=== PATIENT | female | born 1995 | race Caucasian/White ===

== ENCOUNTER 2017-03-16 20:29 | Emergency (ER) | payer OTHER ==
[~2017-03-16] VITALS: Ht 182.9 cm; Wt 150.0 kg
[2017-03-16 20:30] VITALS: BP 105/66
[2017-03-16] MEDS ORDERED: NAPR500T PO (21:17)
--- NOTE | 2017-03-16 22:10 | REP ---
Clinical: Trauma. Technique: AP, lateral, bilateral oblique views of the left ankle. Findings: Evidence for old trauma with prior fixation involving the medial malleolus. No acute fracture or dislocation. No significant soft tissue swelling. Ankle mortise appears intact. Impression: Evidence for prior ORIF involving the medial malleolus. No acute fracture dislocation. Signed by Mina Joiner MD 03/16/2017 10:00 P
== END 2017-03-16 21:54 | disposition home or self-care (01) ==
LOC: M ED 20:29
DX: S93.412A Sprain of calcaneofibular ligament of left ankle, initial encounter (principal); W01.0XXA Fall on same level from slipping, tripping and stumbling without subsequent striking against object, initial encounter; Y92.89 Other specified places as the place of occurrence of the external cause; Y93.89 Activity, other specified; Y99.1 Military activity

== ENCOUNTER 2017-04-29 11:15 | Emergency (ER) | payer OTHER ==
[~2017-04-29] VITALS: Ht 182.9 cm; Wt 68.2 kg
[~2017-04-29 11:15] MED LIST: NAPR500T PO
--- NOTE | 2017-04-29 13:14 | REP ---
Chest x-ray: Two views. History: Cough . Comparison study: No comparison . Findings: The lungs are well inflated and free of infiltrate. The pleural angles are sharp. The heart size is normal. Pulmonary vasculature is not increased. No significant bony abnormality is seen. Impression: Negative chest x-ray. Signed by Romel Schultz MD 04/29/2017 01:06 P
[2017-04-29] MEDS ORDERED: AUGM875T28 PO (13:24)
[2017-04-29] MEDS ORDERED: AUGMENTIN 875 MG TAB PO ONE (13:30)
[2017-04-29 13:41] VITALS: BP 128/69
== END 2017-04-29 13:42 | disposition home or self-care (01) ==
LOC: M ED 11:15
DX: J06.9 Acute upper respiratory infection, unspecified (principal); H66.92 Otitis media, unspecified, left ear; R07.89 Other chest pain; R05 Cough; F17.200 Nicotine dependence, unspecified, uncomplicated

== ENCOUNTER 2017-05-15 11:28 | Emergency (ER) | payer OTHER ==
[~2017-05-15] VITALS: Ht 182.9 cm; Wt 77.0 kg
[~2017-05-15 11:28] MED LIST changes: +AUGM875T28 PO
[2017-05-15 13:16] LABS: MEAN CORPUSCULAR HEMOGLOBIN 28.4 pg (27.0-33.0); MEAN CORPUSCULAR HGB CONC 33.6 g/dl (32.0-36.5); MEAN CORPUSCULAR VOLUME 84.5 fl (80.0-96.0); PLATELET COUNT, AUTOMATED 219 10^3/uL (150-450); RED CELL DISTRIBUTION WIDTH 12.6 % (11.5-14.5); WHITE BLOOD COUNT 5.6 10^3/uL (4.0-10.0)
[2017-05-15] MEDS ORDERED: IBUP-1022 PO (13:52)
[2017-05-15 14:10] VITALS: BP 119/62
== END 2017-05-15 14:12 | disposition home or self-care (01) ==
LOC: M ED 11:28
DX: N92.6 Irregular menstruation, unspecified (principal); F17.200 Nicotine dependence, unspecified, uncomplicated; Z91.030 Bee allergy status; Z91.013 Allergy to seafood

== ENCOUNTER 2017-05-31 22:36 | Emergency (ER) | payer OTHER ==
[~2017-05-31] VITALS: Ht 185.4 cm; Wt 63.6 kg
[~2017-05-31 22:36] MED LIST changes: +IBUP-1022 PO
[2017-06-01 00:35] LABS: BASO % 0.4 % (0.0-1.0); EOS # 0.2 10^3/uL (0.0-0.50); IMMATURE GRANULOCYTE % 0.3 % (0-0); LYMPH # 2.2 10^3/uL (1.5-6.5); LYMPH % 29.7 % (24.0-44.0); MEAN CORPUSCULAR HEMOGLOBIN 28.5 pg (27.0-33.0); MEAN CORPUSCULAR VOLUME 83.7 fl (80.0-96.0); MONO # 0.5 10^3/uL (0.0-0.8); MONO % 6.7 % (0.0-5.0); NEUTROPHILS # 4.5 10^3/uL (1.8-7.7); NEUTROPHILS % 60.9 % (36.0-66.0); PLATELET COUNT, AUTOMATED 237 10^3/uL (150-450); WHITE BLOOD COUNT 7.4 10^3/uL (4.0-10.0)
[2017-06-01 00:53] LABS: CONTROL LINE HCG INT CTR LINE PRESENT
[2017-06-01 01:19] LABS: ANION GAP 4 MEQ/L (8-16); BLOOD UREA NITROGEN 15 MG/DL (7-18); CALCIUM LEVEL 8.9 MG/DL (8.5-10.1); CARBON DIOXIDE LEVEL 29 MEQ/L (21-32); CHLORIDE LEVEL 105 MEQ/L (98-107); CREATININE FOR GFR 0.54 MG/DL (0.55-1.02); GLUCOSE, FASTING 86 MG/DL (70-105); POTASSIUM SERUM 3.9 MEQ/L (3.5-5.1); SODIUM LEVEL 138 MEQ/L (136-145)
[2017-06-01] MEDS ORDERED: METOCLOPRAMIDE INJ 10MG/2ML VIAL (J2765) IV ONE (01:30)
[2017-06-01] MEDS ORDERED: NS 1,000 ML IV ONE (01:30)
[2017-06-01] MEDS ORDERED: diphenhydrAMINE INJ 50MG/ML VIAL (J1200) IV ONE (01:30)
[2017-06-01] MEDS ORDERED: KETOROLAC 30 MG/ML VIAL (J1885) IV ONE (01:30)
--- NOTE | 2017-06-01 01:30 | REPUSA ---
CLINICAL HISTORY: Syncope. TECHNIQUE: Multiple axial brain CT scan sections were obtained from base to vertex without contrast a dministration. COMMENTS: The study shows normal configuration of sella turcica. There are no intra or extra-axial collections. There is no mass effect or midline shift. There is no evidence of hematoma formation. No hydrocephal us is present. No abnormal calcifications are noted. No significant abnormalities are seen either in the posterior fossa or supratentorial compartment. The sinuses and mastoid air cells are patent. IMPRESSION: No evidence of acute intracranial pathology. Thank you for your kind referral of this patient.
[2017-06-01 03:26] VITALS: BP 114/57
--- NOTE | 2017-06-01 14:17 | ECGEPIP ---
Stationary ECG Study [facility] - ED Test Date: 2017-06-01 Pat Name: BRITTNY KING Department: Room: - Gender: F Associate Director Qa: rn : 1995 Requested By: MUSTAPHA Daniel Order Number: [id number] Reading MD: Cathy Pizarro Measurements Intervals [place] Rate: 70 P: 44 NH: 168 QRS: 48 QRSD: 102 T: 45 QT: 405 QTc: 439 Interpretive Statements SINUS RHYTHM NO PRIOR FOR COMPARISON Electronically Signed On 06-01-2017 14:16:48 EST by Cathy Pizarro
== END 2017-06-01 03:29 | disposition home or self-care (01) ==
LOC: M ED 22:36
DX: G43.809 Other migraine, not intractable, without status migrainosus (principal); R55 Syncope and collapse; Z91.030 Bee allergy status; Z91.013 Allergy to seafood
CPT/HCPCS: 70450; 80048; 84443; 84703; 85025; 93005; 93041; 94760; 96361; 96374; 96375; 99284; G0480; J1200; J1885; J2765

== ENCOUNTER → 2017-06-29 | Outpatient (REF) | payer OTHER ==
[~2017-06-29] MED LIST changes: +CITRSOL8 PO
== END ==
LOC: M SFHCLERA 19:53
PROVIDERS: ATTEND Nurse Practitioner Family
DX: J02.9 Acute pharyngitis, unspecified (principal)

== ENCOUNTER 2017-07-01 11:40 | Emergency (ER) | payer OTHER ==
[~2017-07-01] VITALS: Ht 182.9 cm; Wt 73.6 kg
[~2017-07-01 11:40] MED LIST changes: -CITRSOL8 PO
[2017-07-01 11:41] VITALS: BP 115/63
[2017-07-01 13:00] LABS: CONTROL LINE UCG INT CTR LINE PRESENT
[2017-07-01 13:06] LABS: SPECIFIC GRAVITY UR AUTO RFX 1.019 (1.002-1.035); SQUAM EPITHELIAL CELL UR AURFX 3 /HPF (0-6)
[2017-07-01] MEDS ORDERED: CITRSOL8 PO (14:24)
--- NOTE | 2017-07-01 15:50 | REP ---
ABDOMINAL SERIES: Supine and erect views of the abdomen demonstrate no free air and no compelling evidence for obstruction. No dilated small bowel loops are seen and there is no abdominal calcifications seen in the abdomen or pelvis. The visualized osseous structures appear intact. An accompanying view of the chest demonstrates no acute infiltrate. Heart is normal in size and the mediastinal silhouette is unremarkable. IMPRESSION: Negative abdominal series. Signed by Paul Trinidad MD 07/01/2017 05:02 P
== END 2017-07-01 14:45 | disposition home or self-care (01) ==
LOC: M ED 11:40
DX: K59.00 Constipation, unspecified (principal); F41.9 Anxiety disorder, unspecified; Z91.030 Bee allergy status; Z91.013 Allergy to seafood

== ENCOUNTER 2017-11-09 19:02 | Emergency (ER) | payer OTHER ==
[2017-11-09 20:32] LABS: BASO % 0.3 % (0.0-1.0); EOS # 0.2 10^3/uL (0.0-0.50); EOS % 1.8 % (0.0-3.0); HEMATOCRIT 36.2 % (36.0-47.0); HEMOGLOBIN 12.3 g/dl (12.0-15.5); IMMATURE GRANULOCYTE % 0.3 % (0-3.0); LYMPH # 2.9 10^3/uL (1.5-6.5); LYMPH % 30.3 % (24.0-44.0); MEAN CORPUSCULAR HEMOGLOBIN 28.4 pg (27.0-33.0); MEAN CORPUSCULAR VOLUME 83.6 fl (80.0-96.0); MONO # 0.7 10^3/uL (0.0-0.8); MONO % 7.1 % (0.0-5.0); NEUTROPHILS # 5.7 10^3/uL (1.8-7.7); NEUTROPHILS % 60.2 % (36.0-66.0); PLATELET COUNT, AUTOMATED 229 10^3/uL (150-450); RED BLOOD COUNT 4.33 10^6/uL (4.00-5.40); RED CELL DISTRIBUTION WIDTH 12.8 % (11.5-14.5); WHITE BLOOD COUNT 9.5 10^3/uL (4.0-10.0)
[2017-11-09 20:40] LABS: AMORPHOUS SEDIMENT RFX SMALL (NEGATIVE); KETONE, URINE AUTO RFX NEGATIVE (NEGATIVE); LEUKOCYTE ESTERASE UR AUTO RFX 2+ (NEGATIVE); NITRITE, URINE AUTO RFX NEGATIVE (NEGATIVE); RBC, URINE AUTO RFX 2 /HPF (0-3); SPECIFIC GRAVITY UR AUTO RFX 1.008 (1.002-1.035); SQUAM EPITHELIAL CELL UR AURFX 1 /HPF (0-6); WBC, URINE AUTO RFX 4 /HPF (0-3)
[2017-11-09 21:17] LABS: ANION GAP 6 MEQ/L (8-16); BLOOD UREA NITROGEN 10 MG/DL (7-18); CALCIUM LEVEL 8.7 MG/DL (8.5-10.1); CARBON DIOXIDE LEVEL 27 MEQ/L (21-32); CHLORIDE LEVEL 107 MEQ/L (98-107); CREATININE FOR GFR 0.57 MG/DL (0.55-1.30); GLUCOSE, FASTING 84 MG/DL (70-100); HCG, SERUM QUANTITATIVE 44603 MIU/ML; POTASSIUM SERUM 4.3 MEQ/L (3.5-5.1); SODIUM LEVEL 140 MEQ/L (136-145)
[2017-11-09 23:03] LABS: CHLAMYDIA DNA AMPLIFICATION NEGATIVE (NEGATIVE); GC DNA AMPLIFICATION NEGATIVE (NEGATIVE)
== END 2017-11-09 22:05 | disposition home or self-care (01) ==
LOC: M ED 19:02
DX: O20.8 Other hemorrhage in early pregnancy (principal); Z3A.01 Less than 8 weeks gestation of pregnancy; Z79.899 Other long term (current) drug therapy; Z91.013 Allergy to seafood; Z91.030 Bee allergy status
CPT/HCPCS: 76801

== ENCOUNTER 2017-12-13 11:05 | Emergency (ER) | payer OTHER ==
[2017-12-13] MEDS: ONDANSETRON 4MG/2ML VIAL (J2405) IV (16:44)
[2017-12-13] MEDS: NS 1,000 ML IV (16:44)
[2017-12-13 16:54] LABS: ANION GAP 6 MEQ/L (8-16); BLOOD UREA NITROGEN 8 MG/DL (7-18); CARBON DIOXIDE LEVEL 27 MEQ/L (21-32); CHLORIDE LEVEL 106 MEQ/L (98-107); CREATININE FOR GFR 0.52 MG/DL (0.55-1.30); GLUCOSE, FASTING 74 MG/DL (70-100); HCG, SERUM QUANTITATIVE 45768 MIU/ML; POTASSIUM SERUM 3.9 MEQ/L (3.5-5.1); SODIUM LEVEL 139 MEQ/L (136-145)
[2017-12-13 18:18] LABS: KETONE, URINE AUTO RFX 2+ mg/dL (NEGATIVE); MUCUS, URINE RFX MODERATE (NEGATIVE); NITRITE, URINE AUTO RFX NEGATIVE (NEGATIVE); RBC, URINE AUTO RFX 1 /HPF (0-3); SPECIFIC GRAVITY UR AUTO RFX 1.019 (1.002-1.035); SQUAM EPITHELIAL CELL UR AURFX 4 /HPF (0-6)
[2017-12-13 18:20] LABS: LEUKOCYTE ESTERASE UR AUTO RFX 2+ (NEGATIVE); WBC, URINE AUTO RFX 28 /HPF (0-3)
== END 2017-12-13 18:44 | disposition home or self-care (01) ==
LOC: M ED 11:05
DX: O99.511 Diseases of the respiratory system complicating pregnancy, first trimester (principal); J20.8 Acute bronchitis due to other specified organisms; O23.01 Infections of kidney in pregnancy, first trimester; O99.351 Diseases of the nervous system complicating pregnancy, first trimester; G44.209 Tension-type headache, unspecified, not intractable; Z3A.12 12 weeks gestation of pregnancy; Z91.030 Bee allergy status; Z91.013 Allergy to seafood
CPT/HCPCS: J2405

== ENCOUNTER 2018-03-07 13:10 | Outpatient (CLI) | payer OTHER ==
[2018-03-07 16:31] LABS: APPEARANCE, URINE CLEAR (CLEAR); BACTERIA, URINE AUTO NEGATIVE (NEGATIVE); BILIRUBIN, URINE AUTO NEGATIVE (NEGATIVE); BLOOD, URINE BLOOD NEGATIVE (NEGATIVE); COLOR, URINE STRAW (YELLOW); GLUCOSE, URINE (UA) AUTO NEGATIVE (NEGATIVE); KETONE, URINE AUTO NEGATIVE (NEGATIVE); LEUKOCYTE ESTERASE, URINE AUTO NEGATIVE (NEGATIVE); NITRITE, URINE AUTO NEGATIVE (NEGATIVE); PROTEIN, URINE AUTO NEGATIVE (NEGATIVE); RBC, URINE AUTO 0 /HPF (0-3); SPECIFIC GRAVITY URINE AUTO 1.004 (1.002-1.035); SQUAMOUS EPITHELIAL CELL UR AU 0 /HPF (0-6); UROBILINOGEN, URINE AUTO 0.2 mg/dL (0.0-2.0); WBC, URINE AUTO 1 /HPF (0-3)
== END 2018-03-07 16:58 | disposition home or self-care (01) ==
LOC: M LDO 13:10
DX: O26.892 Other specified pregnancy related conditions, second trimester (principal); Z3A.25 25 weeks gestation of pregnancy; N89.8 Other specified noninflammatory disorders of vagina
CPT/HCPCS: G0463

== ENCOUNTER 2018-03-27 10:23 | Outpatient (CLI) | payer OTHER ==
[2018-03-27] MEDS ORDERED: LR 1,000 ML IV (12:00)
== END 2018-03-27 13:30 | disposition home or self-care (01) ==
LOC: M LDO 10:23
DX: E86.0 Dehydration (principal); O99.89 Other specified diseases and conditions complicating pregnancy, childbirth and the puerperium; R19.7 Diarrhea, unspecified; R05 Cough; R09.89 Other specified symptoms and signs involving the circulatory and respiratory systems; Z3A.27 27 weeks gestation of pregnancy
CPT/HCPCS: 59025

== ENCOUNTER 2018-05-10 17:38 | Outpatient (CLI) | payer OTHER | END 2018-05-10 18:57 | disposition home or self-care (01) | LOC: M LDO 17:38 | DX: O47.9 False labor, unspecified (principal); Z3A.00 Weeks of gestation of pregnancy not specified | CPT/HCPCS: 59025 ==

== ENCOUNTER 2018-10-09 14:39 | Emergency (ER) | payer OTHER ==
[~2018-10-09] VITALS: Ht 185.4 cm; Wt 79.1 kg
[~2018-10-09 14:39] MED LIST changes: +CITRSOL8 PO; +KEFL500C17 PO; +NAPR-837 PO; -NAPR500T PO; +PRENTAB77 PO; +RANI75TA15 PO; +UNIS25TA3 PO; +vitamin c
[2018-10-09] MEDS ORDERED: MIRE1IUD (14:47)
[2018-10-09] MEDS ORDERED: NAPR-885 (14:47)
[2018-10-09] MEDS ORDERED: ALIG4CAP (14:47)
[2018-10-09] MEDS ORDERED: AMIT8CAP4 (14:47)
[2018-10-09] MEDS ORDERED: PRAZ1CAP (14:47)
[2018-10-09] MEDS ORDERED: NS 1,000 ML IV ONE ×2 (15:30→17:45)
[2018-10-09 15:35] LABS: BASO % 0.1 % (0.0-1.0); EOS # 0.2 10^3/uL (0.0-0.50); EOS % 2.9 % (0.0-3.0); HEMATOCRIT 40.7 % (36.0-47.0); HEMOGLOBIN 13.5 g/dl (12.0-15.5); LYMPH # 2.4 10^3/uL (1.5-6.5); LYMPH % 32.4 % (24.0-44.0); MEAN CORPUSCULAR HEMOGLOBIN 28.1 pg (27.0-33.0); MEAN CORPUSCULAR HGB CONC 33.2 g/dl (32.0-36.5); MEAN CORPUSCULAR VOLUME 84.6 fl (80.0-96.0); MONO # 0.5 10^3/uL (0.0-0.8); NEUTROPHILS # 4.2 10^3/uL (1.8-7.7); NEUTROPHILS % 57.2 % (36.0-66.0); PLATELET COUNT, AUTOMATED 248 10^3/uL (150-450); RED BLOOD COUNT 4.81 10^6/uL (4.00-5.40); WHITE BLOOD COUNT 7.3 10^3/uL (4.0-10.0)
[2018-10-09 15:51] LABS: HCG, SERUM QUALITATIVE NEGATIVE (NEGATIVE)
[2018-10-09] MEDS ORDERED: ONDANSETRON 4MG/2ML VIAL (J2405) IV ONE (16:00)
--- NOTE | 2018-10-09 16:03 | REP ---
Clinical: Syncope/near-syncopal episode . Comparison: 04/29/2017 . Findings: The mediastinum and cardiac silhouette are stable and within normal limits for portable technique. The lung cortez are clear without acute consolidation, effusion, or pneumothorax. Skeletal structures are intact. Impression: No acute cardiopulmonary process appreciated. Electronically Signed by Mina Joiner MD 10/09/2018 03:53 P
[2018-10-09 16:09] LABS: INFLUENZA A AMPLIFICATION NEGATIVE (NEGATIVE); INFLUENZA B AMPLIFICATION NEGATIVE (NEGATIVE)
[2018-10-09 17:05] LABS: BLOOD UREA NITROGEN 21 MG/DL (7-18); CALCIUM LEVEL 8.9 MG/DL (8.5-10.1); CARBON DIOXIDE LEVEL 26 MEQ/L (21-32); CHLORIDE LEVEL 107 MEQ/L (98-107); CREATININE FOR GFR 0.56 MG/DL (0.55-1.30); GLUCOSE, FASTING 81 MG/DL (70-100); SODIUM LEVEL 139 MEQ/L (136-145)
[2018-10-09] MEDS ORDERED: ONDA4TAB6 PO (18:24)
[2018-10-09 19:12] VITALS: BP 110/64
--- NOTE | 2018-10-09 21:18 | ECGEPIP ---
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
== END 2018-10-09 19:12 | disposition home or self-care (01) ==
LOC: M ED 14:39
DX: K52.9 Noninfective gastroenteritis and colitis, unspecified (principal); R55 Syncope and collapse; F41.9 Anxiety disorder, unspecified; Z91.013 Allergy to seafood; Z79.899 Other long term (current) drug therapy; Z79.1 Long term (current) use of non-steroidal anti-inflammatories (NSAID)
CPT/HCPCS: 71045; 80048; 84443; 84703; 85025; 87502; 93005; 93041; 94760; 96361; 96374; 99284; J2405

== ENCOUNTER 2019-05-03 12:52 | Emergency (ER) | payer OTHER ==
[~2019-05-03] VITALS: Ht 185.4 cm; Wt 89.9 kg
[~2019-05-03 12:52] MED LIST changes: +ALIG4CAP; +AMIT8CAP4; +MIRE1IUD; +NAPR-885; +ONDA4TAB6 PO; +PRAZ1CAP
[2019-05-03 12:53] VITALS: BP 134/73
[2019-05-03] MEDS ORDERED: ESSE250T PO (13:01)
[2019-05-03] MEDS ORDERED: [UNRECOGNIZED DRUG - CODE] XX (13:01)
[2019-05-03] MEDS ORDERED: SERT50TA29 PO (13:01)
[2019-05-03] MEDS ORDERED: TRAZ-252 PO (13:01)
[2019-05-03] MEDS ORDERED: DERMABOND TOPICAL SKIN ADHESIVE TOP ONE (13:30)
== END 2019-05-03 13:55 | disposition home or self-care (01) ==
LOC: M ED 12:52
DX: S61.213A Laceration without foreign body of left middle finger without damage to nail, initial encounter (principal); W26.0XXA Contact with knife, initial encounter; Y92.89 Other specified places as the place of occurrence of the external cause; Y93.9 Activity, unspecified; Y99.1 Military activity; F17.200 Nicotine dependence, unspecified, uncomplicated; Z79.899 Other long term (current) drug therapy; Z91.89 Other specified personal risk factors, not elsewhere classified; Z91.013 Allergy to seafood

== ENCOUNTER 2019-06-10 09:46 | Emergency (ER) | payer OTHER ==
[~2019-06-10] VITALS: Ht 185.4 cm; Wt 89.1 kg
[~2019-06-10 09:46] MED LIST changes: +ESSE250T PO; +SERT50TA29 PO; +TRAZ-252 PO; +[UNRECOGNIZED DRUG - CODE] XX
[2019-06-10] MEDS ORDERED: HYDR-4570 PO (09:52)
[2019-06-10 13:11] VITALS: BP 122/75
--- NOTE | 2019-06-10 13:37 | REP ---
REASON: Pain after trauma. There are no priors for comparison. FINDINGS: The joint spaces are symmetric and relatively well maintained. There is no evidence of acute fracture or destructive osseous lesion. IMPRESSION: Negative. Electronically Signed by Jared Carrillo DO 06/10/2019 02:15 P
== END 2019-06-10 13:35 | disposition home or self-care (01) ==
LOC: M ED 09:46
DX: S60.221A Contusion of right hand, initial encounter (principal); W23.1XXA Caught, crushed, jammed, or pinched between stationary objects, initial encounter; Y92.89 Other specified places as the place of occurrence of the external cause; Y99.0 Civilian activity done for income or pay; F33.9 Major depressive disorder, recurrent, unspecified; F41.9 Anxiety disorder, unspecified; F17.210 Nicotine dependence, cigarettes, uncomplicated; Z88.1 Allergy status to other antibiotic agents; Z91.013 Allergy to seafood; Z79.83 Long term (current) use of bisphosphonates; Z79.899 Other long term (current) drug therapy

== ENCOUNTER 2019-06-18 13:38 | Emergency (ER) | payer OTHER ==
[~2019-06-18] VITALS: Ht 185.4 cm; Wt 89.9 kg
[~2019-06-18 13:38] MED LIST changes: +HYDR-4570 PO
[2019-06-18] MEDS ORDERED: RIBOFLAVIN (13:45)
[2019-06-18] MEDS ORDERED: magnesium (13:45)
[2019-06-18 16:03] VITALS: BP 111/61
--- NOTE | 2019-06-18 16:19 | REP ---
FIRST TRIMESTER ULTRASOUND: Real-time sonographic evaluation of the gravid uterus is performed utilizing transabdominal and endovaginal technique. There is a single living intrauterine gestation. Estimated gestational age 5 weeks 6 days based on a crown rump length of 3 mm. EDC 02/12/20. heart rate is 100 beats per minute. There is no subchronic hemorrhage. No maternal adnexal region abnormalities are seen with the ovaries normal in size and appearance, right ovary measuring 5.2 x 2.1 x 3.0 cm and left ovary 3.8 x 2.4 x 2.6 cm. Electronically Signed by Paul Trinidad MD 06/18/2019 04:26 P
[2019-06-18] MEDS ORDERED: FLAG500T PO (16:20)
[2019-06-18] MEDS ORDERED: KEFL500C17 PO (16:20)
[2019-06-18 16:21] LABS: CHLAMYDIA DNA AMPLIFICATION POSITIVE (NEGATIVE); GC DNA AMPLIFICATION NEGATIVE (NEGATIVE)
[2019-06-18] MEDS ORDERED: metroNIDAZOLE (FLAGYL) 500 MG TAB PO ONE (16:30)
[2019-06-18] MEDS ORDERED: CEPHALEXIN 500 MG CAP PO ONE (16:30)
[2019-06-18] MEDS ORDERED: AZIT500T5 PO (17:26)
== END 2019-06-18 16:32 | disposition home or self-care (01) ==
LOC: M ED 13:38
DX: O26.891 Other specified pregnancy related conditions, first trimester (principal); R10.2 Pelvic and perineal pain; O98.311 Other infections with a predominantly sexual mode of transmission complicating pregnancy, first trimester; A74.9 Chlamydial infection, unspecified; O23.591 Infection of other part of genital tract in pregnancy, first trimester; Z3A.01 Less than 8 weeks gestation of pregnancy; Z88.1 Allergy status to other antibiotic agents; Z91.030 Bee allergy status; Z91.013 Allergy to seafood; Z79.83 Long term (current) use of bisphosphonates; Z79.899 Other long term (current) drug therapy

== ENCOUNTER 2019-08-06 21:59 | Emergency (ER) | payer OTHER ==
[~2019-08-06] VITALS: Ht 185.4 cm; Wt 85.4 kg
[~2019-08-06 21:59] MED LIST changes: +AZIT500T5 PO; +FLAG500T PO; +RIBOFLAVIN; +magnesium
[2019-08-06 22:58] LABS: BASO % 0.3 % (0.0-1.0); EOS # 0.1 10^3/uL (0.0-0.5); HEMATOCRIT 39.6 % (36.0-47.0); HEMOGLOBIN 12.9 g/dl (12.0-15.5); LYMPH # 2.6 10^3/uL (1.5-5.0); LYMPH % 28.5 % (24.0-44.0); MEAN CORPUSCULAR HEMOGLOBIN 28.4 pg (27.0-33.0); MEAN CORPUSCULAR HGB CONC 32.6 g/dl (32.0-36.5); MONO # 0.5 10^3/uL (0.0-0.8); NEUTROPHILS # 5.8 10^3/uL (1.5-8.5); NEUTROPHILS % 64.8 % (36.0-66.0); PLATELET COUNT, AUTOMATED 230 10^3/uL (150-450); RED BLOOD COUNT 4.55 10^6/uL (4.00-5.40)
[2019-08-06 23:45] LABS: ALBUMIN 3.5 GM/DL (3.2-5.2); ALT/SGPT 22 U/L (12-78); BILIRUBIN,DIRECT 0.2 MG/DL (0.0-0.2); BILIRUBIN,TOTAL 0.6 MG/DL (0.2-1.0); BLOOD UREA NITROGEN 9 MG/DL (7-18); CALCIUM LEVEL 8.9 MG/DL (8.5-10.1); CARBON DIOXIDE LEVEL 26 MEQ/L (21-32); CHLORIDE LEVEL 108 MEQ/L (98-107); GLOMERULAR FILTRATION RATE > 60.0 (>60); GLUCOSE, FASTING 98 MG/DL (70-100); HCG, SERUM QUANTITATIVE 42209 MIU/ML; LIPASE 119 U/L (73-393); POTASSIUM SERUM 4.2 MEQ/L (3.5-5.1); SODIUM LEVEL 140 MEQ/L (136-145); TOTAL PROTEIN 6.9 GM/DL (6.4-8.2)
--- NOTE | 2019-08-07 01:28 | REPVR ---
PROCEDURE INFORMATION: Exam: US First Trimester, Transabdominal and US Duplex Artery and Vein, Ovaries, Complete Exam date and time: 08/07/2019 1:01 AM Age: 23 years old Clinical indication: complicated by abdominal or pelvic pain; Right lower quadrant; First trimester; Gestational age or lmp: 13 w 1d; ; Additional info: Rlq pain, h/o ovarian cysts TECHNIQUE: Imaging protocol: Real-time transabdominal obstetrical ultrasound of the maternal pelvis and a first trimester , less than 14 weeks 0 days, with image documentation. Real-time duplex ultrasound scan of the arterial and venous flow of the ovaries with B-mode, color Doppler flow and spectral waveform analysis, complete duplex. COMPARISON: No relevant prior studies available. FINDINGS: GESTATION: Gestation: Single viable intrauterine gestation. Heart rate: heart rate is 160 beats per minute. Placenta: Unremarkable. No subchorionic bleed. Amniotic fluid: Amniotic and chorionic fluid are normal for gestational age. BIOMETRY: Estimated gestational age: Sonographically estimated gestational age is 13 weeks 6 days. Sparland-Rump length: Sparland-rump length of the pole is 7.9 cm. Estimated due date: Estimated date of delivery is 02/06/2020 MATERNAL: Uterus: Unremarkable. Cervix: Unremarkable. Right adnexa: Right ovary measures 3 x 3.4 x 2.1 cm. Normal waveforms. Left adnexa: Left ovary measures 4.6 x 3.9 x 2.2 cm. Normal waveforms. Intraperitoneal: No intraperitoneal free fluid. IMPRESSION: Single viable intrauterine gestation 13 weeks 6 days of age. No evidence of ovarian torsion bilaterally. Electronically signed by: Ciro Goodwin On 08/07/2019 01:27:40 AM
[2019-08-07] MEDS ORDERED: CEPHALEXIN 500 MG CAP PO ONE (01:45)
[2019-08-07] MEDS ORDERED: KEFL500C17 PO (01:47)
[2019-08-07 01:53] VITALS: BP 116/59
[2019-08-08] MEDS ORDERED: PREN200C PO (14:36)
== END 2019-08-07 01:57 | disposition home or self-care (01) ==
LOC: M ED 21:59
DX: O23.91 Unspecified genitourinary tract infection in pregnancy, first trimester (principal); Z3A.13 13 weeks gestation of pregnancy

== ENCOUNTER 2019-08-08 14:03 | Emergency (ER) | payer OTHER ==
[~2019-08-08] VITALS: Ht 185.4 cm; Wt 84.9 kg
[2019-08-08] MEDS ORDERED: PREN200C PO (14:36)
[2019-08-08 17:19] LABS: AMORPHOUS SEDIMENT MODERATE (NEGATIVE); APPEARANCE, URINE CLOUDY (CLEAR); BACTERIA, URINE AUTO NEGATIVE (NEGATIVE); BILIRUBIN, URINE AUTO NEGATIVE (NEGATIVE); BLOOD, URINE BLOOD NEGATIVE (NEGATIVE); COLOR, URINE YELLOW (YELLOW); GLUCOSE, URINE (UA) AUTO NEGATIVE (NEGATIVE); KETONE, URINE AUTO NEGATIVE (NEGATIVE); LEUKOCYTE ESTERASE, URINE AUTO TRACE (NEGATIVE); MUCUS, URINE SMALL (NEGATIVE); NITRITE, URINE AUTO NEGATIVE (NEGATIVE); PROTEIN, URINE AUTO NEGATIVE (NEGATIVE); RBC, URINE AUTO 2 /HPF (0-3); SPECIFIC GRAVITY URINE AUTO 1.013 (1.002-1.035); SQUAMOUS EPITHELIAL CELL UR AU 5 /HPF (0-6); UROBILINOGEN, URINE AUTO 0.2 mg/dL (0.0-2.0); WBC, URINE AUTO 0 /HPF (0-3)
[2019-08-08 17:20] LABS: BASO % 0.3 % (0.0-1.0); EOS # 0.1 10^3/uL (0.0-0.5); EOS % 0.8 % (0.0-3.0); HEMATOCRIT 43.7 % (36.0-47.0); HEMOGLOBIN 14.3 g/dl (12.0-15.5); LYMPH # 2.3 10^3/uL (1.5-5.0); LYMPH % 23.8 % (24.0-44.0); MEAN CORPUSCULAR HEMOGLOBIN 28.8 pg (27.0-33.0); MEAN CORPUSCULAR HGB CONC 32.7 g/dl (32.0-36.5); MEAN CORPUSCULAR VOLUME 87.9 fl (80.0-96.0); MONO # 0.5 10^3/uL (0.0-0.8); MONO % 4.9 % (0.0-5.0); NEUTROPHILS # 6.9 10^3/uL (1.5-8.5); NEUTROPHILS % 69.6 % (36.0-66.0); PLATELET COUNT, AUTOMATED 213 10^3/uL (150-450); RED BLOOD COUNT 4.97 10^6/uL (4.00-5.40); WHITE BLOOD COUNT 9.9 10^3/uL (4.0-10.0)
[2019-08-08] MEDS ORDERED: METOCLOPRAMIDE INJ 10MG/2ML VIAL (J2765) IV ONE (17:45)
[2019-08-08] MEDS ORDERED: NS 1,000 ML IV ONE (17:45)
[2019-08-08 17:51] LABS: BLOOD UREA NITROGEN 7 MG/DL (7-18); CALCIUM LEVEL 9.3 MG/DL (8.5-10.1); CARBON DIOXIDE LEVEL 23 MEQ/L (21-32); CHLORIDE LEVEL 105 MEQ/L (98-107); CREATININE FOR GFR 0.59 MG/DL (0.55-1.30); GLOMERULAR FILTRATION RATE > 60.0 (>60); GLUCOSE, FASTING 71 MG/DL (70-100); HCG, SERUM QUANTITATIVE 42545 MIU/ML; POTASSIUM SERUM 4.1 MEQ/L (3.5-5.1); SODIUM LEVEL 136 MEQ/L (136-145)
[2019-08-08 20:55] VITALS: BP 121/56
== END 2019-08-08 20:56 | disposition home or self-care (01) ==
LOC: M ED 14:03
DX: R11.2 Nausea with vomiting, unspecified (principal); R10.84 Generalized abdominal pain; Z91.030 Bee allergy status; Z91.013 Allergy to seafood; Z91.041 Radiographic dye allergy status
CPT/HCPCS: 80048; 81001; 84702; 85025; 96361; 96374; 99284; J2765

== ENCOUNTER 2019-08-30 07:29 | Emergency (ER) | payer OTHER ==
[~2019-08-30] VITALS: Ht 185.4 cm; Wt 84.5 kg
[~2019-08-30 07:29] MED LIST changes: +PREN200C PO
[2019-08-30] MEDS ORDERED: ACETAMINOPHEN TAB 650MG DOSE (2X325MG) PO ONE (08:45)
[2019-08-30 08:57] LABS: BASO % 0.3 % (0.0-1.0); EOS % 0.6 % (0.0-3.0); HEMATOCRIT 36.8 % (36.0-47.0); HEMOGLOBIN 12.3 g/dl (12.0-15.5); LYMPH # 1.6 10^3/uL (1.5-5.0); LYMPH % 22.4 % (24.0-44.0); MEAN CORPUSCULAR HGB CONC 33.4 g/dl (32.0-36.5); MEAN CORPUSCULAR VOLUME 86.8 fl (80.0-96.0); MONO # 0.3 10^3/uL (0.0-0.8); MONO % 4.4 % (0.0-5.0); NEUTROPHILS # 5.2 10^3/uL (1.5-8.5); NEUTROPHILS % 71.7 % (36.0-66.0); PLATELET COUNT, AUTOMATED 201 10^3/uL (150-450); RED BLOOD COUNT 4.24 10^6/uL (4.00-5.40); WHITE BLOOD COUNT 7.2 10^3/uL (4.0-10.0)
--- NOTE | 2019-08-30 09:11 | REP ---
Clinical: thoracic pain. Technique: AP, lateral, and swimmers views. Findings: Alignment and kyphosis is maintained. Vertebral bodies intact. No acute fracture / compression injury or subluxation. No degenerative changes. Paravertebral soft tissues are normal. Impression: Normal thoracic spine series. Electronically Signed by Mina Joiner MD 08/30/2019 09:02 A
--- NOTE | 2019-08-30 09:11 | REP ---
Clinical: Trauma. Fall. Technique: Limited transabdominal obstetrical ultrasound with color Doppler evaluation. Findings: Ultrasound examination demonstrates a single live intrauterine in cephalic presentation. motion was identified by technologist. heart rate equals 149 beats per minute. Amniotic fluid volume is normal. Placenta is identified posteriorly and grade zero. No placenta previa or abruption. Cervix measures 5.5 cm in length and appears closed. Impression: No obvious acute trauma related findings. Electronically Signed by Mina Joiner MD 08/30/2019 09:03 A
--- NOTE | 2019-08-30 09:12 | REP ---
Clinical: Trauma . Comparison: 06/01/2017 . Findings: The ventricles, sulci, and cisterns are normal in position and appearance. Trinidad-white differentiation is maintained. No acute intracranial hemorrhage, mass/mass effect, pathology or trauma/injury. No evidence for acute infarction. No extra-axial fluid collection. Calvarium is intact. Paranasal sinuses and mastoid air cells are clear. Impression: Normal noncontrast head CT. No evidence for acute intracranial pathology or trauma/injury. Electronically Signed by Mina Joiner MD 08/30/2019 09:04 A
--- NOTE | 2019-08-30 09:13 | REP ---
Clinical: Trauma . Technique: Axial noncontrast images from the skull base to the thoracic inlet with coronal and sagittal re-formations Findings: Normal alignment is maintained. Cervical vertebral bodies including transverse processes and spinous processes are intact and there is no evidence for acute fracture / compression injury or subluxation. Spinal canal is patent. Posterior elements are intact. Paravertebral soft tissues are normal. Impression: Normal noncontrast cervical spine CT. No evidence for acute pathology or trauma/injury. Electronically Signed by Mina Joiner MD 08/30/2019 09:05 A
[2019-08-30 09:19] LABS: BLOOD UREA NITROGEN 7 MG/DL (7-18); CALCIUM LEVEL 8.3 MG/DL (8.5-10.1); CARBON DIOXIDE LEVEL 22 MEQ/L (21-32); CHLORIDE LEVEL 110 MEQ/L (98-107); CREATININE FOR GFR 0.49 MG/DL (0.55-1.30); GLOMERULAR FILTRATION RATE > 60.0 (>60); GLUCOSE, FASTING 101 MG/DL (70-100); POTASSIUM SERUM 3.8 MEQ/L (3.5-5.1); SODIUM LEVEL 141 MEQ/L (136-145)
[2019-08-30] MEDS ORDERED: KEFL500C17 PO (10:41)
[2019-08-30 10:57] VITALS: BP 118/66
== END 2019-08-30 11:03 | disposition home or self-care (01) ==
LOC: M ED 07:29
DX: O9A.212 Injury, poisoning and certain other consequences of external causes complicating pregnancy, second trimester (principal); S70.12XA Contusion of left thigh, initial encounter; S16.1XXA Strain of muscle, fascia and tendon at neck level, initial encounter; S09.90XA Unspecified injury of head, initial encounter; W00.0XXA Fall on same level due to ice and snow, initial encounter; Y92.014 Private driveway to single-family (private) house as the place of occurrence of the external cause; O23.42 Unspecified infection of urinary tract in pregnancy, second trimester; O99.342 Other mental disorders complicating pregnancy, second trimester; Z3A.17 17 weeks gestation of pregnancy; Z91.030 Bee allergy status; Z91.013 Allergy to seafood; Z91.041 Radiographic dye allergy status

== ENCOUNTER 2019-09-05 16:07 | Emergency (ER) | payer OTHER ==
[~2019-09-05] VITALS: Ht 185.4 cm; Wt 87.0 kg
[2019-09-05] MEDS ORDERED: FISH1000 PO (16:17)
[2019-09-05] MEDS ORDERED: MAGN400C2 PO (16:17)
[2019-09-05] MEDS ORDERED: RIBO400T PO (16:17)
[2019-09-05] MEDS ORDERED: NS 1,000 ML IV ONE (17:30)
[2019-09-05] MEDS ORDERED: ACETAMINOPHEN 325 MG TAB PO ONE (17:30)
[2019-09-05 18:17] LABS: BASO % 0.2 % (0.0-1.0); EOS # 0.1 10^3/uL (0.0-0.5); EOS % 0.8 % (0.0-3.0); HEMATOCRIT 36.8 % (36.0-47.0); HEMOGLOBIN 12.5 g/dl (12.0-15.5); LYMPH % 18.7 % (24.0-44.0); MEAN CORPUSCULAR HEMOGLOBIN 29.8 pg (27.0-33.0); MEAN CORPUSCULAR VOLUME 87.6 fl (80.0-96.0); MONO # 0.4 10^3/uL (0.0-0.8); MONO % 4.1 % (0.0-5.0); NEUTROPHILS % 75.4 % (36.0-66.0); PLATELET COUNT, AUTOMATED 227 10^3/uL (150-450); WHITE BLOOD COUNT 10.7 10^3/uL (4.0-10.0)
[2019-09-05 18:27] LABS: BLOOD UREA NITROGEN 12 MG/DL (7-18); CALCIUM LEVEL 8.4 MG/DL (8.5-10.1); CARBON DIOXIDE LEVEL 26 MEQ/L (21-32); CHLORIDE LEVEL 107 MEQ/L (98-107); CREATININE FOR GFR 0.52 MG/DL (0.55-1.30); GLOMERULAR FILTRATION RATE > 60.0 (>60); GLUCOSE, FASTING 78 MG/DL (70-100); MAGNESIUM LEVEL 1.9 MG/DL (1.8-2.4); POTASSIUM SERUM 3.8 MEQ/L (3.5-5.1); SODIUM LEVEL 139 MEQ/L (136-145)
[2019-09-05 19:46] LABS: AMORPHOUS SEDIMENT SMALL (NEGATIVE); APPEARANCE, URINE CLOUDY (CLEAR); BACTERIA, URINE AUTO 3+ (NEGATIVE); BILIRUBIN, URINE AUTO NEGATIVE (NEGATIVE); BLOOD, URINE BLOOD NEGATIVE (NEGATIVE); COLOR, URINE YELLOW (YELLOW); GLUCOSE, URINE (UA) AUTO NEGATIVE (NEGATIVE); KETONE, URINE AUTO TRACE mg/dL (NEGATIVE); LEUKOCYTE ESTERASE, URINE AUTO TRACE (NEGATIVE); MUCUS, URINE SMALL (NEGATIVE); NITRITE, URINE AUTO POSITIVE (NEGATIVE); PROTEIN, URINE AUTO NEGATIVE (NEGATIVE); RBC, URINE AUTO 1 /HPF (0-3); SPECIFIC GRAVITY URINE AUTO 1.019 (1.002-1.035); SQUAMOUS EPITHELIAL CELL UR AU 2 /HPF (0-6); UROBILINOGEN, URINE AUTO 0.2 mg/dL (0.0-2.0); WBC, URINE AUTO 6 /HPF (0-3)
[2019-09-05 19:47] VITALS: BP 121/67
--- NOTE | 2019-09-05 20:43 | ECGEPIP ---
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
[2019-09-19] MEDS ORDERED: METR-135 PO (18:48)
[2019-09-19] MEDS ORDERED: MACR100C43 PO (18:49)
== END 2019-09-05 19:48 | disposition home or self-care (01) ==
LOC: M ED 16:07
DX: O26.892 Other specified pregnancy related conditions, second trimester (principal); R55 Syncope and collapse; Z3A.18 18 weeks gestation of pregnancy; R94.31 Abnormal electrocardiogram [ECG] [EKG]; Z91.030 Bee allergy status; Z91.041 Radiographic dye allergy status; Z91.013 Allergy to seafood; Z79.899 Other long term (current) drug therapy

== ENCOUNTER 2019-09-16 18:48 | Emergency (ER) | payer OTHER ==
[~2019-09-16] VITALS: Ht 185.4 cm; Wt 87.2 kg
[2019-09-16 18:48] VITALS: BP 114/58
[~2019-09-16 18:48] MED LIST changes: +FISH1000 PO; +MAGN400C2 PO; +RIBO400T PO
[2019-09-16 19:18] LABS: BASO % 0.3 % (0.0-1.0); EOS # 0.1 10^3/uL (0.0-0.5); EOS % 1.2 % (0.0-3.0); HEMATOCRIT 36.8 % (36.0-47.0); HEMOGLOBIN 12.5 g/dl (12.0-15.5); LYMPH # 2.8 10^3/uL (1.5-5.0); LYMPH % 25.6 % (24.0-44.0); MEAN CORPUSCULAR HEMOGLOBIN 29.6 pg (27.0-33.0); MEAN CORPUSCULAR VOLUME 87.2 fl (80.0-96.0); MONO # 0.7 10^3/uL (0.0-0.8); MONO % 6.4 % (0.0-5.0); NEUTROPHILS # 7.1 10^3/uL (1.5-8.5); NEUTROPHILS % 65.9 % (36.0-66.0); PLATELET COUNT, AUTOMATED 223 10^3/uL (150-450); RED BLOOD COUNT 4.22 10^6/uL (4.00-5.40); WHITE BLOOD COUNT 10.8 10^3/uL (4.0-10.0)
[2019-09-16 19:36] LABS: BLOOD UREA NITROGEN 7 MG/DL (7-18); CALCIUM LEVEL 8.5 MG/DL (8.5-10.1); CARBON DIOXIDE LEVEL 27 MEQ/L (21-32); CHLORIDE LEVEL 108 MEQ/L (98-107); CREATININE FOR GFR 0.54 MG/DL (0.55-1.30); GLOMERULAR FILTRATION RATE > 60.0 (>60); GLUCOSE, FASTING 81 MG/DL (70-100); POTASSIUM SERUM 4.1 MEQ/L (3.5-5.1); SODIUM LEVEL 140 MEQ/L (136-145)
[2019-09-16 22:05] LABS: CHLAMYDIA DNA AMPLIFICATION NEGATIVE (NEGATIVE); GC DNA AMPLIFICATION NEGATIVE (NEGATIVE)
--- NOTE | 2019-09-16 22:16 | REPVR ---
PROCEDURE INFORMATION: Exam: US , Limited Exam date and time: 09/16/19 (9:03pm) Age: 23 years old Clinical indication: female. Gestational age (in weeks): 18 weeks 6 days. Vaginal bleeding and decreased movements. Evaluate amniotic fluid volume. TECHNIQUE: Imaging protocol: Real-time ultrasound of the maternal uterus with image documentation. Examination focused on the clinical indication. COMPARISON: US OB (limited) of 08/30/19 US OB of 08/07/19 FINDINGS: The LMP is reported to be: 05/07/19 A single live intrauterine is identified. age parameters were not measured at this time. Based on the earlier sonogram of 08/07/19, the current expected age = 19 weeks 4 days, with BARBARA = 02/06/20. heart rate is recorded at 152 bpm. The fetus lies breech. The placenta is posterior, with no evidence of previa. The cervix is closed, measuring 3.9 cm in length. Amniotic fluid volume is slightly low, with the YVROSE = 10.2 cm (at the 20th percentile for the current expected age). The deepest fluid pocket = 3.3 cm. Nuchal cord not seen. A anatomic survey was not performed at this time. IMPRESSION: A single live intrauterine is identified. Based on the earlier sonogram of 08/07/19, the current expected age = 19 weeks 4 days. Based on the earlier sonogram, the BARBARA = 02/06/20. heartbeat is seen. The placenta is posterior, with no previa noted. The cervix is closed. The YVROSE = 10.2 cm (at the 20th percentile for the current expected age). Electronically signed by: Doreen Bui On 09/16/2019 22:16:03 PM
[2019-09-19] MEDS ORDERED: METR-135 PO (18:48)
[2019-09-19] MEDS ORDERED: MACR100C43 PO (18:49)
== END 2019-09-16 23:04 | disposition home or self-care (01) ==
LOC: M ED 18:48
DX: O26.852 Spotting complicating pregnancy, second trimester (principal); O26.892 Other specified pregnancy related conditions, second trimester; M54.5 Low back pain; O99.342 Other mental disorders complicating pregnancy, second trimester; Z3A.19 19 weeks gestation of pregnancy; Z91.041 Radiographic dye allergy status; Z91.030 Bee allergy status; Z91.013 Allergy to seafood; Z79.899 Other long term (current) drug therapy

== ENCOUNTER 2019-10-06 15:29 | Outpatient (CLI) | payer OTHER ==
[~2019-10-06] VITALS: Ht 185.4 cm; Wt 86.3 kg
[~2019-10-06 15:29] MED LIST changes: +MACR100C43 PO; +METR-135 PO
[2019-10-06] MEDS ORDERED: MAPA500T2 PO (16:20)
[2019-10-06] MEDS ORDERED: PRENTAB9 PO (16:20)
--- NOTE | 2019-10-06 16:26 | IPNPDOC ---
Text Note Date of Service The patient was seen on 10/06/19. NOTE patient is a 23 yo @ 22+3wks gestation presents with concern for LOF this afternoon. patient reports she felt clear fluid running down her legs. she had intercourse this AM. denies cramping/vb. vitals: normal NAD abd: gravid, soft,nt speculum exam: clear discharge, neg pooling, neg valsalva, cervix visually closed toco: quiet ferning neg. wet prep: neg clue cells, neg hyphae/buds taus: SIUP, +FM. ample amniotic fluid with SDP: 6.5cm a/p patient is @ 22+3wks, neg workup for ROM. discussed s/s to return. f/u as previously scheduled. DO ESAU Quarles LUAT N. DO Oct 06, 2019 16:15
== END 2019-10-06 16:40 ==
LOC: M LDO 15:29
PROVIDERS: ATTEND Obstetrics & Gynecology
DX: O26.892 Other specified pregnancy related conditions, second trimester (principal); N89.8 Other specified noninflammatory disorders of vagina; Z3A.22 22 weeks gestation of pregnancy
CPT/HCPCS: 76815; 87210; G0378; G0463

== ENCOUNTER 2019-10-09 16:38 | Outpatient (CLI) | payer OTHER ==
[~2019-10-09] VITALS: Ht 185.4 cm; Wt 87.1 kg
[~2019-10-09 16:38] MED LIST changes: +MAPA500T2 PO; +PRENTAB9 PO
[2019-10-09 17:06] VITALS: BP 130/63
[2019-10-09 18:07] VITALS: BP 127/71
--- NOTE | 2019-10-09 18:11 | IPNPDOC ---
Text Note Date of Service The patient was seen on 10/09/19. NOTE Triage Note Yanira is a 23yo with SIUP at approx 22wk presenting to L&D triage with CC of leakage of fluid. She called the clinic triage nurse earlier and reported leaking of fluid down her legs, soaked her underwear. No recent intercourse. She was instructed to put a natalie pad on and see if there was further leaking. She called back after an hour and said there was some saturation of the pad, but wasn't sure if the discharge was liquidy or mucousy. No vaginal bleeding. Feels movement. Reports occasional ctx. No fevers/chills/nausea/vomiting/CP/SOB. Vitals wnl, afebrile General: WDWN, resting comfortably in bed, conversant Abdomen: soft, gravid, NTTP Extremities: no edema of BLE SSE (RN as back closer): NEFG, no pooling of fluid in vaginal vault (appears as normal scant physiologic discharge), cervix visually closed, negative valsalva SCE: closed/thick/high TAUS: leigh IUP with transverse presentation, +FCA, +FM, visually adequate fluid all around fetus, posterior placenta Doptones: 140's/150's [place]: no ctx Labs: negative nitrazine negative ferning Assessment: Yanira is a 23yo with SIUP at approx 22wk with NO e/o PPROM. Normal physiologic discharge. Vitals wnl, exam benign. Negative nitrazine/ferning/pooling/valsalva. Visually adequate fluid on TAUS. No ctx on toco. SCE cl/th/h. Plan: -provided reassurance to patient -discussed return precautions -keep next regularly scheduled OB visit at 24wk -she is attempting to schedule repeat ultrasound since anatomy scan showed choroid plexus cysts/mildly echogenic bowel, states she will call again tomorrow to schedule -safe for discharge home MD KRISTIN Rowan Fishbone I+O Harry FOSTER I+O Vital Signs Date Time Temp Pulse Resp B/P (MAP) Pulse Ox O2 Delivery O2 Flow Rate FiO2 10/09/19 17:06 97.3 77 18 130/63 (85) 98 Room Air Sarah Kruse MD Oct 09, 2019 18:11
== END 2019-10-09 18:07 | disposition home or self-care (01) ==
LOC: M LDO 16:38
PROVIDERS: ATTEND Obstetrics & Gynecology
DX: O26.892 Other specified pregnancy related conditions, second trimester (principal); Z3A.22 22 weeks gestation of pregnancy; N89.8 Other specified noninflammatory disorders of vagina; Z91.030 Bee allergy status; Z91.041 Radiographic dye allergy status; Z91.013 Allergy to seafood; Z88.3 Allergy status to other anti-infective agents
CPT/HCPCS: 76815; G0378; G0463

== ENCOUNTER 2019-11-01 16:59 | Outpatient (CLI) | payer OTHER ==
[~2019-11-01] VITALS: Ht 185.4 cm; Wt 87.9 kg
[2019-11-01 17:23] VITALS: BP 112/68
[2019-11-01 18:03] LABS: AMORPHOUS SEDIMENT SMALL (NEGATIVE); APPEARANCE, URINE CLOUDY (CLEAR); BACTERIA, URINE AUTO NEGATIVE (NEGATIVE); BILIRUBIN, URINE AUTO NEGATIVE (NEGATIVE); BLOOD, URINE BLOOD NEGATIVE (NEGATIVE); COLOR, URINE YELLOW (YELLOW); GLUCOSE, URINE (UA) AUTO NEGATIVE (NEGATIVE); KETONE, URINE AUTO NEGATIVE (NEGATIVE); LEUKOCYTE ESTERASE, URINE AUTO TRACE (NEGATIVE); MUCUS, URINE SMALL (NEGATIVE); NITRITE, URINE AUTO NEGATIVE (NEGATIVE); PROTEIN, URINE AUTO NEGATIVE (NEGATIVE); RBC, URINE AUTO 1 /HPF (0-3); SPECIFIC GRAVITY URINE AUTO 1.018 (1.002-1.035); SQUAMOUS EPITHELIAL CELL UR AU 5 /HPF (0-6); UROBILINOGEN, URINE AUTO 0.2 mg/dL (0.0-2.0); WBC, URINE AUTO 3 /HPF (0-3)
[2019-11-01 18:26] VITALS: BP 115/65
--- NOTE | 2019-11-01 18:48 | IPNPDOC ---
Text Note Date of Service The patient was seen on 11/01/19. NOTE Triage Note Yanira is a 23yo with SIUP at 26w1d presenting to L&D triage with CC of leakage of fluid and ctx. She reports leaking of fluid down her legs earlier this afternoon, soaked her underwear. No recent intercourse. She also noted scant vaginal bleeding when she wiped. Feels movement, though less today than usual. Reports occasional ctx. No fevers/chills/nausea/vomiting/CP/SOB. 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 Normal physiologic discharge. Vitals wnl, exam benign. Negative nitrazine/fern ing/pooling/valsalva. MVP 7cm. No ctx observed on toco. SSE shows cervix visually cl/th/h. Plan: -provided reassurance to patient -discussed return precautions -keep next regularly scheduled OB visit at 28wk -wrote a note to limit duty hours at 28wk to 8hr work days and to allow her to have weekends off now to rest and recover (patient has extra duty assigned because she "got in trouble") -urine culture pending -safe for discharge home MD KRISTIN Rowan Fishbone I+O Harry FOSTER I+O Vital Signs Date Time Temp Pulse Resp B/P (MAP) Pulse Ox O2 Delivery O2 Flow Rate FiO2 11/01/19 18:26 98.9 81 18 115/65 (82) 97 Room Air Sarah Kruse MD Nov 01, 2019 18:48
== END 2019-11-01 18:50 | disposition home or self-care (01) ==
LOC: M LDO 16:59
PROVIDERS: ATTEND Registered Nurse Maternal Newborn
DX: O26.892 Other specified pregnancy related conditions, second trimester (principal); N89.8 Other specified noninflammatory disorders of vagina; O26.852 Spotting complicating pregnancy, second trimester; O36.8120 Decreased fetal movements, second trimester, not applicable or unspecified; Z3A.26 26 weeks gestation of pregnancy
CPT/HCPCS: 76815; 81001; 87086; G0378; G0463

== ENCOUNTER 2019-12-01 15:15 | Outpatient (CLI) | payer OTHER ==
[~2019-12-01] VITALS: Ht 185.4 cm; Wt 91.0 kg
[2019-12-01 15:31] VITALS: BP 108/69
[2019-12-01 16:27] LABS: APPEARANCE, URINE CLEAR (CLEAR); BACTERIA, URINE AUTO 2+ (NEGATIVE); BILIRUBIN, URINE AUTO NEGATIVE (NEGATIVE); BLOOD, URINE BLOOD NEGATIVE (NEGATIVE); COLOR, URINE STRAW (YELLOW); GLUCOSE, URINE (UA) AUTO NEGATIVE (NEGATIVE); KETONE, URINE AUTO NEGATIVE (NEGATIVE); LEUKOCYTE ESTERASE, URINE AUTO NEGATIVE (NEGATIVE); NITRITE, URINE AUTO NEGATIVE (NEGATIVE); PROTEIN, URINE AUTO NEGATIVE (NEGATIVE); RBC, URINE AUTO 1 /HPF (0-3); SPECIFIC GRAVITY URINE AUTO 1.003 (1.002-1.035); SQUAMOUS EPITHELIAL CELL UR AU 0 /HPF (0-6); UROBILINOGEN, URINE AUTO 0.2 mg/dL (0.0-2.0); WBC, URINE AUTO 2 /HPF (0-3)
--- NOTE | 2019-12-01 16:36 | IPNPDOC ---
Text Note Date of Service The patient was seen on 12/01/19. NOTE patient is a 24 yo @30+3wks gestation presents with concern for feeling pressure and intermittent contractions since this AM. denies RYAN/VB. +FM. last coitus 3 days ago. vitals: normal nad abd: gravid, soft, nt le: no edema/erythema/tenderness fht: 140/mod juaquin/no acce/no decel, consistent with gestational age toco: quiet speculum: normal external genitalia, no lesion vagina with clear/white discharge cervix visually closed CE: closed/thick/high wetprep: neg UA: equivocal for bacteruria. urine culture pending. a/p patient is a 24 yo @ 30+3wks not in labor. no e/o infection at this time. patient given return precautions. f/u with regularly scheduled appointment. DO Robina VS,Estere, I+O VS, Fishbone, I+O Vital Signs Date Time Temp Pulse Resp B/P (MAP) Pulse Ox O2 Delivery O2 Flow Rate FiO2 12/01/19 15:31 97.5 93 18 108/69 (82) CEASAR CIFUENTES DO December 01, 2019 16:18
== END 2019-12-01 16:37 | disposition home or self-care (01) ==
LOC: M LDO 15:15
PROVIDERS: ATTEND Obstetrics & Gynecology
DX: O26.893 Other specified pregnancy related conditions, third trimester (principal); R10.30 Lower abdominal pain, unspecified; R82.90 Unspecified abnormal findings in urine; Z3A.30 30 weeks gestation of pregnancy
CPT/HCPCS: 59025; 81001; 87086; 87210; G0378; G0463

== ENCOUNTER 2019-12-14 16:09 | Emergency (ER) | payer OTHER ==
[~2019-12-14] VITALS: Ht 185.4 cm; Wt 89.9 kg
[2019-12-14] MEDS ORDERED: SERT50TA29 PO (16:15)
[2019-12-14 17:29] LABS: MEAN CORPUSCULAR HEMOGLOBIN 30.7 pg (27.0-33.0); MEAN CORPUSCULAR HGB CONC 35.3 g/dl (32.0-36.5); PLATELET COUNT, AUTOMATED 226 10^3/uL (150-450); RED BLOOD COUNT 3.91 10^6/uL (4.00-5.40); WHITE BLOOD COUNT 9.6 10^3/uL (4.0-10.0)
[2019-12-14 18:00] LABS: BLOOD UREA NITROGEN 8 MG/DL (7-18); CALCIUM LEVEL 8.6 MG/DL (8.5-10.1); CARBON DIOXIDE LEVEL 25 MEQ/L (21-32); CHLORIDE LEVEL 107 MEQ/L (98-107); CK-MB VALUE MASS < 1.0 NG/ML (<3.6); CPK CREATINE PHOSPHOKINASE 40 U/L (26-192); CREATININE FOR GFR 0.51 MG/DL (0.55-1.30); GLOMERULAR FILTRATION RATE > 60.0 (>60); GLUCOSE, FASTING 76 MG/DL (70-100); MAGNESIUM LEVEL 1.9 MG/DL (1.8-2.4); POTASSIUM SERUM 4.1 MEQ/L (3.5-5.1); SODIUM LEVEL 138 MEQ/L (136-145)
[2019-12-14 18:29] VITALS: BP 113/65
--- NOTE | 2019-12-15 12:11 | REP ---
DEEP VENOUS ULTRASONOGRAPHY LEFT THIGH, RULE OUT DVT: REASON: Pain and swelling. TECHNIQUE: Multiple ultrasonographic images of the deep venous structures of the left thigh were obtained from the common femoral vein to the popliteal vein along with Doppler interrogation and color flow Doppler images. FINDINGS: There is no abnormal echogenic material seen within any of the visualized deep venous structures that would suggest acute thrombosis. Coaptation is unremarkable throughout. Doppler interrogation shows an expected response to respiratory variability and augmentation. The color flow images show what appears to be a normal vascular pattern throughout. IMPRESSION: There is no ultrasonographic evidence of deep venous thrombosis involving any of the visualized deep venous structures of the left thigh, as described above. Electronically Signed by Jared Carrillo DO 12/17/2019 10:10 A
== END 2019-12-14 18:33 | disposition home or self-care (01) ==
LOC: M ED 16:09
DX: R25.2 Cramp and spasm (principal); Z3A.32 32 weeks gestation of pregnancy; F41.0 Panic disorder [episodic paroxysmal anxiety]; F32.9 Major depressive disorder, single episode, unspecified; Z87.891 Personal history of nicotine dependence; Z88.3 Allergy status to other anti-infective agents; Z91.013 Allergy to seafood; Z91.030 Bee allergy status; Z91.041 Radiographic dye allergy status; Z79.899 Other long term (current) drug therapy

== ENCOUNTER 2020-01-21 18:57 | Outpatient (CLI) | payer OTHER ==
[~2020-01-21] VITALS: Ht 185.4 cm; Wt 88.5 kg
[2020-01-21 19:17] VITALS: BP 118/69
--- NOTE | 2020-01-21 20:36 | IPNPDOC ---
Text Note Date of Service The patient was seen on 01/21/20. NOTE patient is a @37+5wks presents to triage with multiple concerns. patient initially comes in with concern for DFM x 2 hrs. also reports having contractions every 10-15mins. concern about LOF for the last few hours. not enough to soak a pad. complaint of lower back pain. denies VB. patient started feeling baby movement in triage. vitals: normal NAD, laying in bed ABD: gravid, soft, nt, cephalic back: nttp, no cva tenderness le: no edema/erythema/tenderness speculum exam: normal vaginal discharge, neg pooling, neg valsalva CE: /-2 ferning neg. fht: 135/mod juaquin/pos accel/no decel toco: quiet a/p patient is a 37+5wks, normal exam. no e/o LOF. baby moving with reactive NST. return precautions given. f/u with regularly scheduled appointment. DO Robina VS,Harry, I+O VS, Estere, I+O Vital Signs Date Time Temp Pulse Resp B/P (MAP) Pulse Ox O2 Delivery O2 Flow Rate FiO2 01/21/20 19:17 97.6 75 118/69 (85) CEASAR CIFUENTES DO Jan 21, 2020 20:36
== END 2020-01-21 20:36 | disposition home or self-care (01) ==
LOC: M LDO 18:57
PROVIDERS: ATTEND Obstetrics & Gynecology
DX: O36.8130 Decreased fetal movements, third trimester, not applicable or unspecified (principal); Z3A.37 37 weeks gestation of pregnancy
CPT/HCPCS: 59025; 81001; 87088; 87186; G0378; G0463

== ENCOUNTER 2020-01-22 10:31 | Outpatient (CLI) | payer OTHER ==
[~2020-01-22] VITALS: Ht 185.4 cm; Wt 87.9 kg
--- NOTE | 2020-01-22 13:00 | IPNPDOC ---
Text Note Date of Service The patient was seen on 01/22/20. NOTE LND Triage Note S: Yanira is a 24yo at 37+6wks, EDC [id number] by 2nd trimester US, presents to LND triage with c/o ROM at 0930 this morning and contractions ('really uncomfortable'). She states she felt a pop and noticed a puddle of fluid on her chair and her pants were soaked. She was certain that her did not void. She reports +FM, denies VB. complicated by Depression and she is GBS Positive. O: VSS, afebrile, normotensive FHR 135, moderate variability, + accels, no decels noted CTX by TOCO: rare SSE: no pooling, copius discharge present in vault, at cervix, and externally on vulva VE: 2/50/-3, posterior Ferning negative Microbiology: discharge sample collected for WP/ENRIQUE - + clue cells A: 24yo at 37+6wks, not in labor and intact membranes. Category I FHT/reactive. 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
== END 2020-01-22 12:20 ==
LOC: M LDO 10:31
PROVIDERS: ATTEND Registered Nurse Maternal Newborn
DX: O26.893 Other specified pregnancy related conditions, third trimester (principal); B37.3 Candidiasis of vulva and vagina; Z3A.37 37 weeks gestation of pregnancy
CPT/HCPCS: 59025; 87210; G0378; G0463

== ENCOUNTER 2020-02-01 10:38 | Outpatient (CLI) | payer OTHER ==
[~2020-02-01] VITALS: Ht 185.4 cm; Wt 87.5 kg
[2020-02-01 10:54] VITALS: BP 110/70
[2020-02-01] MEDS ORDERED: FLAG500T PO (11:03)
[2020-02-01] MEDS ORDERED: AMOX875T PO (11:03)
[2020-02-01] MEDS ORDERED: ONDANSETRON 4 MG ORAL DISINTEGRATING TAB PO ONE (11:30)
[2020-02-01 11:59] VITALS: BP 106/68
--- NOTE | 2020-02-01 12:13 | IPNPDOC ---
Text Note Date of Service The patient was seen on 02/01/20. NOTE LND Triage Note S: Yanira is a 24yo at 39+2 weeks who presents to LND triage with c/o N/V and cramping/contractions since 0200 this AM, stating she 'feels like it's food poisoning'. She states she started her meds for UTI (amoxicillin) and BV (flagyl) last night. She was diagnosed with BV/UTI o/a [id number] and just picked up her meds on [id number]. She reports +FM, denies LOF/VB. She states she has been unable to keep any food down; she is tolerating ice chips at this time. O: VSS, afebrile, normotensive Urine dip: + leuks (previous dx of UTI); Specific gravity is 1.000 FHR 130s, moderate variability, + accels, no decels noted CTX by TOCO: none VE: 1.5/50/-3, posterior A: 24yo at 39+2wks, N/V d/t medications. Category I FHT/Reactive. Pt not in labor. P: 4mg Zofran now Discharge home with rx for Zofran to pick up man at [place]. Instructed to take Zofran 1hr prior to meds. Also, eat food with meds (flagyl and amoxicillin) Continue drinking water and ice chips for hydration Labor/danger precautions reviewed f/u PRN or in clinic for next ZULEYMA VS,Fishbone, I+O VS, Fishbone, I+O Vital Signs Date Time Temp Pulse Resp B/P (MAP) Pulse Ox O2 Delivery O2 Flow Rate FiO2 02/01/20 10:54 98.5 117 18 110/70 (83) PK DE CNM Feb 01, 2020 12:13
== END 2020-02-01 12:50 | disposition home or self-care (01) ==
LOC: M LDO 10:38
PROVIDERS: ATTEND Registered Nurse Maternal Newborn
DX: O23.43 Unspecified infection of urinary tract in pregnancy, third trimester (principal); Z3A.39 39 weeks gestation of pregnancy; O21.9 Vomiting of pregnancy, unspecified
CPT/HCPCS: 59025; G0378; G0463; Q0162

== ENCOUNTER 2020-02-10 21:30 | Inpatient (IN) | payer OTHER ==
[~2020-02-10 21:30] MED LIST changes: +AMOX875T PO; +OXYTOCIN 30 UNITS IN 0.9% NaCl 500ML IV BAG (J2590) ONE; +PENICILLIN G POTASSIUM 5 MU VIAL ONE
[2020-02-10] MEDS ORDERED: OXYTOCIN 30 UNITS IN 0.9% NaCl 500ML IV BAG (J2590) As Ordered ONE (21:48)
[2020-02-10] MEDS ORDERED: PENICILLIN G POTASSIUM 5 MU VIAL As Ordered ONE (22:28)
[2020-02-11] MEDS ORDERED: PENICILLIN 100,000 U/ML SYRINGE 2.5MU As Ordered ONE ×6 (02:31→23:00)
[2020-02-11] MEDS ORDERED: PENICILLIN 100,000 U/ML SYRINGE 2.5MU ONE ×5 (02:31→22:20)
[2020-02-11] MEDS ORDERED: PROMETHAZINE INJ 25 MG/ML VIAL (J2550) As Ordered ONE (03:06)
[2020-02-11] MEDS ORDERED: BUTORPHANOL 2 MG/ML INJ (J0595) ONE (03:06)
[2020-02-11] MEDS ORDERED: BUTORPHANOL 2 MG/ML INJ (J0595) As Ordered ONE (03:06)
[2020-02-11] MEDS ORDERED: PROMETHAZINE INJ 25 MG/ML VIAL (J2550) ONE (03:06)
[2020-02-11] MEDS ORDERED: miSOPROStol 25 MCG 1/4 TAB (S0191) As Ordered ONE (12:27)
[2020-02-11] MEDS ORDERED: miSOPROStol 25 MCG 1/4 TAB (S0191) ONE (12:27)
[2020-02-11] MEDS ORDERED: miSOPROStol 50 MCG 1/2 TAB (S0191) ONE ×2 (18:06→22:20)
[2020-02-11] MEDS ORDERED: miSOPROStol 50 MCG 1/2 TAB (S0191) As Ordered ONE ×2 (18:06→22:20)
[2020-02-12] MEDS ORDERED: PENICILLIN 100,000 U/ML SYRINGE 2.5MU ONE ×4 (03:01→11:03)
[2020-02-12] MEDS ORDERED: ACETAMINOPHEN 500 MG TAB ONE (03:01)
[2020-02-12] MEDS ORDERED: miSOPROStol 50 MCG 1/2 TAB (S0191) ONE (03:25)
[2020-02-12] MEDS ORDERED: PENICILLIN 100,000 U/ML SYRINGE 2.5MU As Ordered ONE ×4 (03:25→15:01)
[2020-02-12] MEDS ORDERED: miSOPROStol 50 MCG 1/2 TAB (S0191) As Ordered ONE (03:25)
[2020-02-12] MEDS ORDERED: FENTANYL 2MCG/ML ROPIVACAINE 0.2% IN 0.9% NACL 100ML IVBAG ONE (07:19)
[2020-02-12] MEDS ORDERED: FENTANYL 2MCG/ML ROPIVACAINE 0.2% IN 0.9% NACL 100ML IVBAG As Ordered ONE (10:51)
[2020-02-12] MEDS ORDERED: ACETAMINOPHEN 500 MG TAB As Ordered ONE (20:05)
[2020-02-13] MEDS ORDERED: ACETAMINOPHEN 500 MG TAB ONE ×2 (09:00→15:07)
[2020-02-13] MEDS ORDERED: ACETAMINOPHEN 500 MG TAB As Ordered ONE ×2 (09:00→15:07)
[2020-02-13] MEDS ORDERED: DOCUSATE SODIUM 100 MG CAP ONE (20:15)
[2020-02-13] MEDS ORDERED: DOCUSATE SODIUM 100 MG CAP As Ordered ONE (20:15)
[2020-02-14] MEDS ORDERED: IBUPROFEN 600MG TAB ONE (17:13)
[2020-02-14] MEDS ORDERED: IBUPROFEN 600MG TAB As Ordered ONE (17:13)
[2020-03-19 11:49] LABS: HEMOGLOBIN 12.3 g/dl (12.0-15.5); MEAN CORPUSCULAR HEMOGLOBIN 29.7 pg (27.0-33.0); MEAN CORPUSCULAR HGB CONC 34.2 g/dl (32.0-36.5); PLATELET COUNT, AUTOMATED 233 10^3/uL (150-450); RED BLOOD COUNT 4.14 10^6/uL (4.00-5.40); WHITE BLOOD COUNT 8.7 10^3/uL (4.0-10.0)
== END 2020-02-14 07:30 | disposition home or self-care (01) | DRG 807 ==
LOC: M LDI 21:30 → M ED 21:30
PROVIDERS: ADMIT Obstetrics & Gynecology; ATTEND Registered Nurse Maternal Newborn
PROC: 3E033VJ Introduction of Other Hormone into Peripheral Vein, Percutaneous Approach (ICD-10-PCS; 2020-02-10)
PROC: 10E0XZZ Delivery of Products of Conception, External Approach (ICD-10-PCS; principal; 2020-02-12)
PROC: 10907ZC Drainage of Amniotic Fluid, Therapeutic from Products of Conception, Via Natural or Artificial Opening (ICD-10-PCS; 2020-02-12)
PROC: 0UQMXZZ Repair Vulva, External Approach (ICD-10-PCS; 2020-02-12)
DX: O48.0 Post-term pregnancy (principal); Z37.0 Single live birth; Z3A.40 40 weeks gestation of pregnancy; O69.82X0 Labor and delivery complicated by other cord entanglement, without compression, not applicable or unspecified; O99.824 Streptococcus B carrier state complicating childbirth; O71.82 Other specified trauma to perineum and vulva

== ENCOUNTER 2020-05-04 07:40 | Emergency (ER) | payer OTHER ==
[~2020-05-04] VITALS: Ht 185.4 cm; Wt 77.4 kg
[~2020-05-04 07:40] MED LIST changes: -OXYTOCIN 30 UNITS IN 0.9% NaCl 500ML IV BAG (J2590) ONE; -PENICILLIN G POTASSIUM 5 MU VIAL ONE
[2020-05-04] MEDS ORDERED: FAMOTIDINE INJ 20MG/2ML VIAL (S0028 PER 1) IVP ONE (08:00)
[2020-05-04] MEDS ORDERED: diphenhydrAMINE 50MG/ML VIAL (J1200) IV ONE (08:00)
[2020-05-04] MEDS ORDERED: dexameTHASONE 20MG/5ML VIAL (J1100 PER 1MG) IV ONE (08:00)
[2020-05-04 08:50] LABS: HCG, SERUM QUALITATIVE NEGATIVE (NEGATIVE)
[2020-05-04] MEDS ORDERED: EPIP0.3I2 IM (09:13)
[2020-05-04] MEDS ORDERED: PRED20TA PO (09:13)
[2020-05-04 11:30] VITALS: BP 117/56
== END 2020-05-04 11:42 | disposition home or self-care (01) ==
LOC: M ED 07:40
DX: T78.40XA Allergy, unspecified, initial encounter (principal); L50.9 Urticaria, unspecified; Z91.030 Bee allergy status; Z91.041 Radiographic dye allergy status; Z91.013 Allergy to seafood; Z79.899 Other long term (current) drug therapy
CPT/HCPCS: 84703; 93041; 94760; 96374; 96375; 99285; J1100; J1200

== ENCOUNTER 2020-06-12 19:42 | Emergency (ER) | payer OTHER ==
[~2020-06-12] VITALS: Ht 185.4 cm; Wt 80.4 kg
[~2020-06-12 19:42] MED LIST changes: +EPIP0.3I2 IM; +PRED20TA PO
[2020-06-12 20:54] LABS: BASO % 0.7 % (0.0-1.0); EOS # 0.2 10^3/uL (0.0-0.5); EOS % 3.2 % (0.0-3.0); HEMATOCRIT 36.5 % (36.0-47.0); HEMOGLOBIN 11.6 g/dl (12.0-15.5); LYMPH # 2.1 10^3/uL (1.5-5.0); LYMPH % 36.3 % (24.0-44.0); MEAN CORPUSCULAR HEMOGLOBIN 27.6 pg (27.0-33.0); MEAN CORPUSCULAR HGB CONC 31.8 g/dl (32.0-36.5); MEAN CORPUSCULAR VOLUME 86.9 fl (80.0-96.0); MONO # 0.4 10^3/uL (0.0-0.8); MONO % 6.3 % (0.0-5.0); NEUTROPHILS % 53.5 % (36.0-66.0); PLATELET COUNT, AUTOMATED 259 10^3/uL (150-450); WHITE BLOOD COUNT 5.7 10^3/uL (4.0-10.0)
[2020-06-12] MEDS ORDERED: KETOROLAC 30 MG/ML 1ML VIAL IV ONE (21:15)
[2020-06-12] MEDS ORDERED: DICYCLOMINE 10 MG CAP PO ONE ×2 (21:15→22:30)
[2020-06-12] MEDS ORDERED: ONDANSETRON 4MG/2ML VIAL IV ONE (21:15)
[2020-06-12] MEDS ORDERED: NS 1,000 ML IV ONE (21:15)
[2020-06-12 21:16] LABS: ALBUMIN 3.8 GM/DL (3.2-5.2); ALT/SGPT 23 U/L (12-78); BILIRUBIN,DIRECT 0.2 MG/DL (0.0-0.2); BILIRUBIN,TOTAL 0.7 MG/DL (0.2-1.0); BLOOD UREA NITROGEN 20 MG/DL (7-18); CALCIUM LEVEL 9.1 MG/DL (8.5-10.1); CARBON DIOXIDE LEVEL 27 MEQ/L (21-32); CHLORIDE LEVEL 108 MEQ/L (98-107); CREATININE FOR GFR 0.84 MG/DL (0.55-1.30); GLOMERULAR FILTRATION RATE > 60.0 (>60); GLUCOSE, FASTING 96 MG/DL (70-100); LIPASE 145 U/L (73-393); POTASSIUM SERUM 3.9 MEQ/L (3.5-5.1); SODIUM LEVEL 141 MEQ/L (136-145); TOTAL PROTEIN 6.8 GM/DL (6.4-8.2)
[2020-06-12 21:17] LABS: HCG, SERUM QUALITATIVE NEGATIVE (NEGATIVE)
[2020-06-12] MEDS ORDERED: ONDA4TAB6 PO (22:24)
[2020-06-12] MEDS ORDERED: MACR100C43 PO (22:24)
[2020-06-12] MEDS ORDERED: DICY10CA13 PO (22:24)
[2020-06-12 22:26] VITALS: BP 115/59
[2020-06-12] MEDS ORDERED: NITROFURANTOIN (MACROBID) 100 MG CAP PO ONE (22:30)
[2020-06-12] MEDS ORDERED: ONDANSETRON 4 MG ORAL DISINTEGRATING TAB PO ONE (22:30)
== END 2020-06-12 22:50 | disposition home or self-care (01) ==
LOC: M ED 19:42
DX: N39.0 Urinary tract infection, site not specified (principal); Q61.2 Polycystic kidney, adult type; Z91.041 Radiographic dye allergy status; Z91.048 Other nonmedicinal substance allergy status; Z91.030 Bee allergy status; Z91.013 Allergy to seafood; Z87.42 Personal history of other diseases of the female genital tract
CPT/HCPCS: 80048; 80076; 81001; 83690; 84703; 85025; 87077; 87186; 96374; 96375; 99284; J1885; J2405; Q0162

== ENCOUNTER 2021-05-11 08:41 | Emergency (ER) | payer OTHER, SELFPAY ==
[~2021-05-11] VITALS: Ht 185.4 cm; Wt 84.1 kg
[~2021-05-11 08:41] MED LIST changes: +DICY10CA13 PO; +SERT-141 PO
--- OUTSIDE RECORDS SUMMARY | 2021-05-11 08:48 | CCD ---
Author Author [facility] Organization [facility] Address Unknown Phone Unavailable Care Team Providers Care Abrasive Mixer Name Role Phone Nwogu, U Brien DO Unavailable Unavailable Nwogu, U Brien DO Unavailable Unavailable Nwogu, U Brien DO Unavailable Unavailable Nwogu, U Brien DO Unavailable Unavailable Nwogu, U Brien DO Unavailable Unavailable Nwogu, U Brien DO Unavailable Unavailable Nwogu, U Brien DO Unavailable Unavailable Nwogu, U Brien DO Unavailable Unavailable Nwogu, U Brien DO Unavailable Unavailable Nwogu, U Brien DO Unavailable Unavailable Nwogu, U Brien DO Unavailable Unavailable Nwogu, U Brien DO Unavailable Unavailable Nwogu, U Brien DO Unavailable Unavailable Nwogu, U Brien DO Unavailable Unavailable Nwogu, U Brien DO Unavailable Unavailable Nwogu, U Brien DO Unavailable Unavailable Nwogu, U Brien DO Unavailable Unavailable Nwogu, U Brien DO Unavailable Unavailable Nwogu, U Brien DO Unavailable Unavailable Nwogu, U Brien DO Unavailable Unavailable UNKNOWN, [facility] Unavailable Unavailable Nwogu, U Brien DO Unavailable Unavailable Nwogu, U Brien DO Unavailable Unavailable Nwogu, U Brien DO Unavailable Unavailable Nwogu, U Brien DO Unavailable Unavailable Nwogu, U Brien DO Unavailable Unavailable Nwogu, U Brien DO Unavailable Unavailable Nwogu, U Brien DO Unavailable Unavailable Nwogu, U Brien DO Unavailable Unavailable Nwogu, U Brien DO Unavailable Unavailable Nwogu, U Brien DO Unavailable Unavailable Nwogu, U Brien DO Unavailable Unavailable Nwogu, U Brien DO Unavailable Unavailable Nwogu, U Brien DO Unavailable Unavailable Nwogu, U Brien DO Unavailable Unavailable Nwogu, U Brien DO Unavailable Unavailable Nwogu, U Brien DO Unavailable Unavailable Nwogu, U Brien DO Unavailable Unavailable Nwogu, U Brien DO Unavailable Unavailable Nwogu, U Brien DO Unavailable Unavailable Nwogu, U Brien DO Unavailable Unavailable Chavo TORRES MD Unavailable Unavailable Chavo TORRES MD Unavailable Unavailable Chavo TORRES MD Unavailable Unavailable Chavo TORRES MD Unavailable Unavailable Chavo TORRES MD Unavailable Unavailable Chavo TORRES MD Unavailable Unavailable Chavo TORRES MD Unavailable Unavailable Chavo TORRES MD Unavailable Unavailable Chavo TORRES MD Unavailable Unavailable BRIAN, L TY MD Unavailable Unavailable BRIAN, L TY MD Unavailable Unavailable BRIAN, L TY MD Unavailable Unavailable BRIAN, L TY MD Unavailable Unavailable BRIAN, L TY MD Unavailable Unavailable BRIAN, L TY MD Unavailable Unavailable BRIAN, L TY MD Unavailable Unavailable BRIAN, L TY MD Unavailable Unavailable BRIAN, L TY MD Unavailable Unavailable BRIAN, L TY MD Unavailable Unavailable BRIAN, L TY MD Unavailable Unavailable Re-disclosure Warning The records that you are about to access may contain information from federally-assisted alcohol or drug abuse programs. If such information is present, then the following federally mandated warning applies: This information has been disclosed to you from records protected by federal confidentiality rules (42 CFR part 2). The federal rules prohibit you from making any further disclosure of this information unless further disclosure is expressly permitted by the written consent of the person to whom it pertains or as otherwise permitted by 42 CFR part 2. A general authorization for the release of medical or other information is NOT sufficient for this purpose. The Federal rules restrict any use of the information to criminally investigate or prosecute any alcohol or drug abuse patient.The records that you are about to access may contain highly sensitive health information, the redisclosure of which is protected by Article 27-F of the [facility] Public Health law. If you continue you may have access to information: Regarding HIV / AIDS; Provided by facilities licensed or operated by the [facility] Office of Mental Health; or Provided by the [facility] Office for People With Developmental Disabilities. If such information is present, then the following [facility] mandated warning applies: This information has been disclosed to you from confidential records which are protected by state law. State law prohibits you from making any further disclosure of this information without the specific written consent of the person to whom it pertains, or as otherwise permitted by law. Any unauthorized further disclosure in violation of state law may result in a fine or snf sentence or both. A general authorization for the release of medical or other information is NOT sufficient authorization for further disc losure. Family History Family Member Name Family Member Gender Family Member Status Date o f Status Description Data Source(s) Unknown Unknown Problem [facility] ([facility], ) Encounters Encounter Providers Location Date Indications Data Source(s ) Outpatient Attender: Brien Smith DOConsultant: DILAN GABINO KNOWN 05/08/2021 07:35:00 AM EDT - 05/08/2021 08:35:00 AM EDT [facility] Outpatient Attender: Brien Smith DO Family Practice 04/18 02:15:00 PM EDT [facility] ([facility] Outpatient Attender: Brien Smith DOConsultant: DILAN GABINO KNOWN 05/06/2021 02:12:00 PM EDT - 05/06/2021 02:12:00 PM EDT [facility] Emergency Attender: TY TORRES MD 2020 02:53:00 PM EDT - 03/21/2021 05:12:00 PM EDT [facility] Patient discharged. [place] [address] [facility] [address] 10/24/2020 12:00:00 AM EDT eCW1 ([facility]) Emergency Attender: TY TORRES MD 2020 02:09:00 PM EST - 09/18/2020 04:13:00 PM EST [facility] Patient discharged. Unknown [address] [facility] [address] 08/12/2020 12:00:00 AM EST eCW1 ([facility]) Unknown [address] [facility] [address] 07/22/2020 12:00:00 AM EST eCW1 ([facility]) Outpatient [address] [facility] [address] 07/04/2020 12:00:00 AM EST eCW1 ([facility]) Immunizations Vaccine Date Status Description Data Source(s) COVID-19 VACCINE Moderna 11/28/2020 12:00:00 AM EDT completed [facility] Vaccine Series Complete: NOThis Data was Submitted to [facility] Via [employer]. Medications Medication Brand Name Start Date Product Form Dose Route Admi nistrative Instructions Pharmacy Instructions Status Indications Reaction Description Data Source(s) meloxicam 7.5 MG Oral Tablet Meloxicam 7.5 MG Meloxicam 7.5 MG 07/04/2020 12:00:00 AM EST 1.0 {tablet} active Me loxicam 7.5 MG eCW1 ([facility]) Omeprazole 40 MG Delayed Release Oral Capsule Omeprazole 40 MG 07/04/2020 12:00:00 AM EST active Omeprazo le 40 MG eCW1 ([facility]) meloxicam 7.5 MG Oral Tablet Meloxicam 7.5 MG Meloxicam 7.5 MG 07/04/2020 12:00:00 AM EST 1.0 {tablet} active Me loxicam 7.5 MG eCW1 ([facility]) Omeprazole 40 MG Delayed Release Oral Capsule Omeprazole 40 MG 07/04/2020 12:00:00 AM EST active Omeprazo le 40 MG eCW1 ([facility]) meloxicam 7.5 MG Oral Tablet Meloxicam 7.5 MG Meloxicam 7.5 MG 07/04/2020 12:00:00 AM EST 1.0 {tablet} active Me loxicam 7.5 MG eCW1 ([facility]) Omeprazole 40 MG Delayed Release Oral Capsule Omeprazole 40 MG 07/04/2020 12:00:00 AM EST active Omeprazo le 40 MG eCW1 ([facility]) meloxicam 7.5 MG Oral Tablet Meloxicam 7.5 MG Meloxicam 7.5 MG 07/04/2020 12:00:00 AM EST 1.0 {tablet} active Me loxicam 7.5 MG eCW1 ([facility]) topiramate 50 MG Oral Tablet Topiramate 50 MG Topiramate 50 MG 07/04/2020 12:00:00 AM EST 1.0 {tablet} active To piramate 50 MG eCW1 ([facility]) Omeprazole 40 MG Delayed Release Oral Capsule Omeprazole 40 MG 07/04/2020 12:00:00 AM EST active Omeprazo le 40 MG eCW1 ([facility]) topiramate 50 MG Oral Tablet Topiramate 50 MG Topiramate 50 MG 07/04/2020 12:00:00 AM EST 1.0 {tablet} active To piramate 50 MG eCW1 ([facility]) topiramate 50 MG Oral Tablet Topiramate 50 MG Topiramate 50 MG 07/04/2020 12:00:00 AM EST 1.0 {tablet} active To piramate 50 MG eCW1 ([facility]) topiramate 50 MG Oral Tablet Topiramate 50 MG Topiramate 50 MG 07/04/2020 12:00:00 AM EST 1.0 {tablet} active To piramate 50 MG eCW1 ([facility]) Insurance Providers Payer name Policy type / Coverage type Policy ID Covered green party ID Covered green party's relationship to forbes Policy [employer] Plan Information [facility] ACTIVE DUTY [id number] SP [id number] [facility] (2018) Health Maintenance Organization (HMO) [id number] Self [id number] U [id number] Self [id number] [facility] HUMANA - O/P [id number] 18 [id number] [facility] MANAGEMENT MELVIN [id number] SP [id number] [facility] REG O [id number] S [id number] ACTIVE DUTY [id number] SP [id number] ANSI-Not a Secondary Insurance [id number] [facility] [id number] SP [id number] [facility] O [id number] O [id number] [facility] ACTIVE DUTY [id number] SP [id number] [facility] - FAC [id number] Problems, Conditions, and Diagnoses Code Display Name Description Problem Type Effective Dates Data Source(s) Z3A01 Less than 8 weeks gestation of Less than 8 weeks gestation of Diagnosis 03/21/2021 02:53:00 PM EDT [facility] O2311 Infections of bladder in , firs t trimester Infections of bladder in , first trimester Diagnosis 03/21/2021 02:53:00 PM EDT [facility] O209 Hemorrhage in early , unspecifi ed Hemorrhage in early , unspecified Diagnosis 03/21/2021 02:53:00 PM EDT [facility] Y9289 Other specified places as the place of o ccurrence of the external cause Other specified places as the place of occurrence of the external cause Diagnosis 09/18/2020 02:09:00 PM [facility] [id number] Contact with unspecified sharp object(s) , initial encounter Contact with unspecified sharp object(s), initial encounter Diagnosis 021 02:09:00 PM [facility] [id number] Latex allergy status Latex allergy status Diagnosis 09/18/2020 02:09:00 PM [facility] [id number] Personal history of nicotine dependence Personal history of nicotine dependence Diagnosis 09/18/2020 02:09:00 PM [facility] [id number] Laceration without foreign b maggie of left index finger without damage to nail, initial encounter Laceration without foreign body of left index finger without damage to nail, initial encounter Diagnosis 09/18/2020 02:09:0 0 PM [facility] [id number] Unspecified injury of left wrist, hand a nd finger(s), initial encounter Unspecified injury of left wrist, hand and finger(s), initial encounter Diagnosis 09/18/2020 02:09:00 PM [facility] G43.009 [id number] Migraine without aur a and without status migrainosus, not intractable Problem 07/04/2020 12:00:00 AM EST [facility] ([facility]) K21.9 [id number] Gastroesophageal ref lux disease, unspecified whether esophagitis present Problem 07/04/2020 12:00:00 AM EST [facility] ([facility]) Surgeries/Procedures Procedure Description Date Indications Data Source(s) OFFICE OUTPATIENT NEW 30 MINUTES 05/06/2021 12:00:00 A M EDT [facility] ([facility]) Results ID Date Data Source [id number] 05/08/2021 07:15:00 AM EDT [facility] ([facility]) Name Value Range Interpretation Code Description Data Herminia rce(s) Supporting Document(s) Choriogonadotropin.beta subunit [Moles/volume] in Seru m or Plasma 37269.0 mIU/mL [facility] ([facility]) if possative do QUANT ID Date Data Source [id number] 05/08/2021 07:15:00 AM EDT [facility] ([facility]) Name Value Range Interpretation Code Description Data Herminia rce(s) Supporting Document(s) HCG Serum QL [facility] test result [facility] ([facility]) if possative do QUANT HCG Serum Qual Laboratory test result [facility] ([facility]) if possative do QUANT ID Date Data Source [id number] 05/08/2021 10:43:00 AM EDT [facility] Name Value Range Interpretation Code Description Data Herminia rce(s) Supporting Document(s) Choriogonadotropin.intact [Units/volume] in Serum or Plasma 23057.0 mIU/mL [facility] Interpr etation: Less than 5 mU/mL: Negative 6-10 mU/mL: Borderline (suggest repeat in 48 hours) >10: Positive Approx HCG range (mU/mL) Weeks post LMP 5.4-708 mU/mL 3-4 Weeks 217-11376 mU/mL 5-6 Weeks 4059-815615 mU/mL 7-8 Weeks 83014-056336 mU/mL 9-10 Weeks 26295-68020 mU/mL 12-14 Weeks 74932-60489 mU/mL 15-16 Weeks 8240- 98117 mU/mL 17-18 Weeks ID Date Data Source [id number] 05/08/2021 08:11:00 AM EDT [facility] Name Value Range Interpretation Code Description Data Herminia rce(s) Supporting Document(s) HCG SERUM QUAL POSITIVE NORMAL: NEGATIVE [facility] HCG SERUM QL REENTER POSITIVE NORMAL: NEGATIVE [facility] { KIT LOT # [id number] ){ KIT EXP DATE 08/17/22 ){ PROCEDURAL CONTROL VALID ) ID Date Data Source [id number] 05/06/2021 03:52:00 PM EDT [facility] ([facility]) Name Value Range Interpretation Code Description Data Herminia rce(s) Supporting Document(s) Choriogonadotropin.beta subunit [Moles/volume] in Seru m or Plasma 09267.0 mIU/mL [facility] ([facility]) BETA HCG-April~BETA HCG-APRIL 18~.~N91.2 ID Date Data Source [id number] 05/06/2021 08:47:00 PM EDT [facility] Name Value Range Interpretation Code Description Data Herminia rce(s) Supporting Document(s) Choriogonadotropin.intact [Units/volume] in Serum or Plasma 81077.0 mIU/mL [facility] Interpr etation: Less than 5 mU/mL: Negative 6-10 mU/mL: Borderline (suggest repeat in 48 hours) >10: Positive Approx HCG range (mU/mL) Weeks post LMP 5.4-708 mU/mL 3-4 Weeks 217-93510 mU/mL 5-6 Weeks 4059-146062 mU/mL 7-8 Weeks 12234-092671 mU/mL 9-10 Weeks 77561-63442 mU/mL 12-14 Weeks 89719-18778 mU/mL 15-16 Weeks 8240- 47299 mU/mL 17-18 Weeks ID Date Data Source [id number] 03/21/2021 02:53:00 PM EDT [facility] 1 OrderSheet [facility] Emergency Department [address] [place] [address] Phone #: ext- [phone] 03/21/2021 14:52 Patient: BRITTNY EVERETT Sex: F : 1995 Age: 25yWEIGHT:86.6 kg (M) HEIGHT:73 inches (S) BMI:25.2ALLERGIES: IodineCHIEF COMPLAINT: pelvic pain, vag bleedingDIAGNOSIS: Urinary tract infectious disease, Patient currently LAB ORDERSOrder Description Priority Entered Acknowledged InitialedCBC w Diff STAT 15:03/21/2021 16:09 Yola Resendiz R.N.; Reason for ordering with alerts: Clinical consideration given -- 15:03/21/2021 Christiano Rodarte PAChlamydia/GC STAT 15:03/21/2021 15:26 Yola Resendiz R.N.; Reason for ordering with alerts: Clinical consideration given -- 15:03/21/2021 Christiano BETH NOTES: urineCMP STAT 15:03/21/2021 16:09 Yola Resendiz R.N.; Reason for ordering with alerts: Clinical consideration given -- 15:21 03/21/2021 Christiano Rodarte PACulture, Urine STAT 15:03/21/2021 15:26 Yola Resendiz(Urine, Clean Christiano Rodarte R.NAlyshaCatch) IGNACIA; Reason for ordering with alerts: Clinical consideration given -- 15:03/21/2021 Christiano Rodarte PAType Rh STAT 15:03/21/2021 16:09 Yola Resendiz R.N.; Reason for ordering with alerts: Clinical consideration given -- 15:03/21/2021 Christiano Rodarte PAUrinalysis (Clean STAT 15:03/21/2021 15:26 Yola ResendizCatdedrick) Christiano BETH; Reason for ordering with alerts: Clinical consideration given -- 15:03/21/2021 Christiano BETH 2 OrderSheet [facility] Emergency Department [address] [place] [address] Phone #: ext- [phone] 03/21/2021 14:52 Patient: BRITTNY EVERETT Sex: F : 1995 Age: 25yHCG Serum Quant STAT 15:03/21/2021 16:09 Yola Resendiz R.N.; Reason for ordering with alerts: Clinical consideration given -- 15:03/21/2021 Christiano Rodarte PADIAGNOSTIC STUDY ORDERSOrder Description Priority Entered Acknowledged InitialedUS OB 1ST TRI W STAT 15:21 021 15:27 Kalyan Resendiz IF NEEDED Christiano Rodarte R.N.(Oxygen?(No)) PA;(IV?(No)) Reason for ordering with alerts: Clinical consideration given -- 15:03/21/2021 Christiano BETH Reason for Study: abd pain and vag bleedingMEDICATION/IV/DRIP/FLUID ORDERSOrder Description Priority Entered Acknowledged InitialedTylenol PO 1000 15:03/21/2021 15:26 Castro Resendiz R.N. PA; Reason for ordering with alerts: Clinical consideration given -- 15:03/21/2021 Christiano Rodarte PAZofran ODT PO 8 15:03/21/2021 15:26 Castro Resendiz R.N. PA; Reason for ordering with alerts: Clinical consideration given -- 15:03/21/2021 Christiano Rodarte PAGENERAL ORDERSOrder Description Priority Entered Acknowledged Initialed[Electronically signed by Yola Resendiz R.N. (17:12 03/21/2021)][Electronically signed by Christiano Rodarte (19:47 03/21/2021)][Electronically locked by Yola Resendiz R.N. (17:12 03/21/2021)] Name Value Range Interpretation Code Description Data Herminia rce(s) Supporting Document(s) ID Date Data Source [id number] 03/21/2021 02:53:00 PM EDT [facility] 1 Medication Reconciliation Report [facility] Emergency Department [address] [place] [address] Phone #: ext- [phone] 03/21/2021 14:52 Patient: BRITTNY EVERETT Sex: F : 1995 Age: 25yWeight: 86.6 kgHeight/Length: 73 in.BMI: 25.2ALLERGIES: IodineThe patient's Home Medications are listed below:NONE.The source(s) of the original Home Medication information:Not obtained.The following Medications were given to the patient in the Emergency Department:Tylenol [PO] PO 1000 mg, administered: 15:26 03/21/2021Zofran ODT [PO] PO 8 mg, administered: 15:03/21/2021The following Medications were prescribed to the patient:cephalexin 500 mg capsule Take 1 capsule three times a day for 7 days -- Dispense 21 capsule.Refills: 0. Substitution permitted.[id number] [address] [place], [place] [id number]. .ondansetron 8 mg disintegrating tablet Take 1 tablet three times a day for 10 days -- Dispense 30tablet. Refills: 0. Substitution permitted.Pharmacy - [id number] - [address] [place], [place] [phone]. . -- IGNACIA Saunders Name Value Range Interpretation Code Description Data Herminia rce(s) Supporting Document(s) ID Date Data Source [id number] 03/21/2021 02:53:00 PM EDT [facility] 1 Medication Administration Record [facility] Emergency Department [address] [place] [address] Phone #: ext- [phone] 03/21/2021 14:52 Patient: BRITTNY EVERETT Sex: F : 1995 Age: 25yWeight: 86.6 kgHeight/Length: 73 inBMI: 25.2ALLERGIES: Iodine Date/Time Medication Administered Medication OrderedGiven TYLENOL [PO] (APAP) Tylenol PO 1000 mg15:26 03/21/2021 Dose: 1000 mg Tablets Yola Blair R.N.Given ZOFRAN ODT [PO] (ONDANSETRON Zofran ODT PO 8 mg15:03/21/2021 HCL)Yola Resendiz R.N. Dose: 8 mg Oral Disintegrating Tablets PO Name Value Range Interpretation Code Description Data Herminia rce(s) Supporting Document(s) ID Date Data Source [id number] 03/21/2021 02:53:00 PM EDT [facility] 1 General Instructions [facility] Emergency Department [address] [place] [address] Phone #: ext- [phone] 03/21/2021 14:52 Patient: BRITTNY EVERETT Sex: F : 1995 Age: 25yFirst trimester ; positive test in emergency department. Ultrasound was performed butcould not determine the location of the .Acute urinary tract infection with cystitis. No hematuria.INSTRUCTIONSNo sexual contact until symptoms resolve.Warnings: Further evaluation is necessary in order to conduct further tests. It is very important to follow upwith a healthcare provider.GENERAL WARNINGS: Return or contact your physician immediately if your condition worsens orchanges unexpectedly, if not improving as expected, or if other problems arise. Specifically return if pain orbleeding worsens.Your Current Medications: .No home medication.Prescription Medications:cephalexin 500 mg capsule Take 1 capsule three times a day for 7 days -- Dispense 21 capsule.Refills: 0. Substitution permitted.Pharmacy - [id number] - [address] [place], [place] [phone]. .ondansetron 8 mg disintegrating tablet Take 1 tablet three times a day for 10 days -- Dispense 30tablet. Refills: 0. Substitution permitted.[id number] [address] [facility] ; [place], [place] [phone]. .Follow-up:Follow up with your doctor [facility] in three d ays. Reason for referral: evaluation, treatment and repeatBeta Hcg and serial US. Summary of care provided to patient.Understanding of the discharge instructions verbalized by patient. ADDITIONAL INFORMATIONPregnancy 2 General Instructions [facility] Emergency Department [address] [place] [address] Phone #: ext- [phone] 03/21/2021 14:52 Patient: BRITTNY EVERETT Sex: F : 1995 Age: 25yYour exam today shows that you are . symptomsDuring your body's hormones change. This causes physical and emotional changes. Thisis normal. Knowing what to expect is important for your piece of mind and so you know when to seekhelp for a problem. Here are some of the most common symptoms: Morning sickness or nausea. This can happen any time of the day or night. Tender, swollen breasts Need to urinate frequently Tiredness or fatigue Dizziness Indigestion or heartburn Food cravings or turn-offs Constipation Emotional changes. This can range from anxiety to excitement to depression.General care for a healthy 3 General Instructions [facility] Emergency Department [address] [place] [address] Phone #: ext- [phone] 03/21/2021 14:52 Patient: BRITTNY EVERETT Sex: F : 1995 Age: 25yHere are things you can do to help make sure your baby is born healthy: Rest when you feel tired. This is especially true in the later months of . Drink more fluids. Your body needs more fluids than you may be used to. Drink 8 to10 glasses of juice, milk, or water every day. Eat well-balanced meals. Eat at regular times to give your body enough protein. You can expect to gain about 30 pounds during the . Don't try to diet or lose weight while you are . Take a vitamin every day. This helps you meet the extra nutritional needs of . Don't take any other medicine during your unless your healthcare provider tells you to. This includes prescription medicines and those you buy over the counter. Many medicines can harm the growing baby. If you have nausea or vomiting, don't eat greasy or fried foods. Eat several smaller meals throughout the day rather than 3 large meals. If you smoke, you must stop. The nicotine you breathe in goes right to the baby. Stay away from alcohol, even in moderate amounts. Daily drinking will harm your baby and can cause permanent brain damage. Don't use recreational drugs, especially cocaine, crack, and heroin. These will harm your baby. Also avoid marijuana. If you were using recreational drugs or prescribed medicine when you found out that you were , talk with your healthcare provider about possible effects on your growing baby. If you have medical problems that you need to take medicine for, talk with your healthcare provider.Follow-up careCall your healthcare provider to arrange for care. care is important. You can seeyo ur family provider, a specialist (research laboratory manager), a professor of philosophy, or a primary care clinic.When to seek medical adviceCall your healthcare provider right away if any of these occur: Vaginal bleeding Pain in your belly (abdomen) or back that is moderate or severe 4 General Instructions [facility] Emergency Department [address] [place] [address] Phone #: ext- [phone] 03/21/2021 14:52 Patient: BRITTNY EVERETT Sex: F : 1995 Age: 25y Lots of vomiting, or you can't keep any fluids down for 6 hours Burning feeling when you urinate Headache, dizziness, or rapid weight gain Fever Vision changes or blurred vision [employer]. [address] [place] [address]. All rights reserved. This information is not intended as asubstitute for professional medical care. Always follow your healthcare professional's instructions.Bladder Infection, Female (Adult)Urine normally doesn't have any germs (bacteria) in it. But bacteria can get into the urinary tract fromthe skin around the rectum. Or they can travel in the blood from other parts of the body. Once theyare in your urinary tract, they can cause infection in these areas: The urethra (urethritis) The bladder (cystitis) The kidneys (pyelonephritis)The most common place for an infection is in the bladder. This is called a bladder infection. This isone of the most common infections in women. Most bladder infections are easily treated. They arenot serious unless the infection spreads to the kidney. 5 General Instructions [facility] Emergency Department [address] [place] [address] Phone #: ext- [phone] 03/21/2021 14:52 Patient: BRITTNY EVERETT Sex: F : 1995 Age: 25yThe terms bladder infection, UTI, and cystitis are often used to describe the same thing. But they arenot always the same. Cystitis is an inflammation of the bladder. The most common cause of cystitis isan infection.SymptomsThe infection causes inflammation in the urethra and bladder. This causes many of the symptoms.The most common symptoms of a bladder infection are: Pain or burning when urinating Having to urinate more often than normal Urgent need to urinate Only a small amount of urine comes out Blood in urine Belly (abdominal) discomfort. This is often in the lower belly above the pubic bone. Cloudy urine Strong- or bad-smelling urine Unable to urinate (urinary retention) Unable to hold urine in (urinary incontinence) Fever Loss of appetite Confusion (in older adults)CausesBladder infections are not contagious. You can't get one from someone else, from a toilet seat, orfrom sharing a bath.The most common cause of bladder infections is bacteria from the bowels. The bacteria get onto theskin around the opening of the urethra. From there, they can get into the urine. Then they travel up tothe bladder, causing inflammation and infection. This often happens because of: Wiping incorrectly after urinating. Always wipe from front to back. Bowel incontinence 6 General Instructions [facility] Emergency Department [address] [place] [address] Phone #: ext- [phone] 03/21/2021 14:52 Patient: BRITTNY EVERETT Sex: F : 1995 Age: 25y Procedures such as having a catheter put in Older age Not emptying your bladder. This can give bacteria a chance to grow in your urine. Fluid loss (dehydration) Constipation Having sex Using a diaphragm for controlTreatmentBladder infections are diagnosed by a urine test and urine culture. They are treated with antibiotics.They often clear up quickly without problems. Treatment helps prevent a more serious kidneyinfection.MedicinesMedicines can help in the treatment of a bladder infection: Take antibiotics until they are used up, even if you feel better. It's important to finish them to make sure the infection has cleared. You can use acetaminophen or ibuprofen for pain, fever, or discomfort, unless another medicine was prescribed. If you have long-term (chronic) liver or kidney disease, talk with your healthcare provider before using these medicines. Also talk with your provider if you've ever had a stomach ulcer or GI (gastrointestinal) bleeding, or are taking blood-thinner medicines. If you are given phenazopydridine to reduce burning with urination, it will make your urine a bright orange color. This can stain clothing.Care and preventionThese self-care steps can help prevent future infections: Drink plenty of fluids. This helps to prevent dehydration and flush out your bladder. Do this unless you must restrict fluids for other health reasons, or your healthcare provider told you not to. Clean yourself correctly after going to the bathroom. Wipe from front to back after using the toilet. This helps prevent the spread of bacteria. Urinate more often. Don't try to hold urine in for a long time. 7 General Instructions [facility] Emergency Department [address] [place] [address] Phone #: ext- [phone] 03/21/2021 14:52 Patient: BRITTNY EVERETT Sex: F : 1995 Age: 25y Wear loose-fitting clothes and cotton underwear. Don't wear tight-fitting pants. Improve your diet and prevent constipation. Eat more fresh fruits and vegetables, and fiber. Eat less junk foods and fatty foods. Don't have sex until your symptoms are gone. Don't have caffeine, alcohol, and spicy foods. These can irritate your bladder. Urinate right after you have sex to flush out your bladder. If you use control pills and have frequent bladder infections, discuss it with your healthcare provider.Follow-up careCall your healthcare provider if all symptoms are not gone after 3 days of treatment. This is especiallyimportant if you have repeat infections.If a culture was done, you will be told if your treatment needs to be changed. If directed, you cancall to find out the results.If X-rays were done, you will be told if the results will affect your treatment.Call 911Call 911 if any of the following occur: Trouble breathing Hard to wake up or confusion Fainting (loss of consciousness) Fast heart rateWhen to get medical adviceCall your healthcare provider right away if any of these occur: Fever of 100.4F (38.0C) or higher, or as directed by your healthcare provider Symptoms are not better after 3 days of treatment Back or belly pain that gets worse Repeated vomiting, or unable to keep medicine down Weakness or dizziness 8 General Instructions [facility] Emergency Department [address] [place] [address] Phone #: ext- [phone] 03/21/2021 14:52 Patient: BRITTNY EVERETT Sex: F : 1995 Age: 25y Vaginal discharge Pain, redness, or swelling in the outer vaginal area (labia) [id number] [employer]. [address] [place] [address]. All rights reserved. This information is not intended as asubstitute for professional medical care. Always follow your healthcare professional's instructions. You have been given the following additional information: , New Dx Bladder Infection, Female (Adult)(Electronically signed by IGNACIA Saunders 03/21/2021 19:47) Name Value Range Interpretation Code Description Data Herminia rce(s) Supporting Document(s) ID Date Data Source [id number] 03/21/2021 02:53:00 PM EDT [facility] 1 Clinical Report - Nurses [facility] Emergency Department [address] [place] [address] Phone #: brp- [phone] 03/21/2021 14:52 Patient: BRITTNY EVERETT Sex: F : 1995 Age: 25yTRIAGEArrived by private vehicle. Historian: patient. Accompanied by family.Acuity: LEVEL 3.Chief Complaint: ABDOMINAL CRAMPS and SPOTTING.Alert. No acute distress.Onset. (1 hours ago). ( Pt had a positive home test yesterday (last menstrual cycle February 06).Today, while at work she began having stabbing left sided pelvic pain and light spotting. She does not havean ob in the area yet, and her blood type is O+.).Treatment TRAFFIC SIGN SUPERVISOR:None.SEPSIS SCREEN: SIRS SCREEN NEGATIVE. SEPSIS SCREEN NEGATIVE. No suspected or confirmedsigns of infection present.BENNY COMA SCORE: 15- eyes open- spontaneous (4); best verbal response- oriented (5); bestmotor response- obeys commands (6). --15:03 03/21/21 Lamar Valencia R.N.14:56 03/21/21. BP: 111/70. HR: 70. RR: 16. O2 saturation: 99%. Temp: 98.7 F. Pain level now 5/10.--15:03 03/21/21 Lamar Valencia R.N.Weight: 86.6 kg measured. Height/Length: 73 inches Per Patient. BMI: 25.2. --15:02 03/21/21 Lamar Valencia R.N.MedicationsNone. --15:01 03/21/21 Lamar Valencia R.N.AllergiesIodine. --15:01 03/21/21 Lamar Valencia R.N.PROBLEMS:Anemia.Gastroesophageal Reflux Disease.Depression.Anxiety Reaction.Crohn's Disease.Polycystic Kidney. --15:02 03/21/21 Lamar Valencia R.N. 2 Clinical Report - Nurses [facility] Emergency Department [address] [place] [address] Phone #: ext- [phone] 03/21/2021 14:52 Patient: BRITTNY EVERETT Sex: F : 1995 Age: 25y ADDITIONAL SURGERIES: Ankle surgery. Dental Surgery. --15:02 03/21/21 Lamar Valencia R.N. History PAST MEDICAL HX: Last normal menstrual period- February 06. Currently . OB history: G 6; P 2; Ab 3. SOCIAL HX: Never smoker. No alcohol use or drug use. She was offered HIV testing but declined and hepatitis C testing but declined. She has not traveled outside the [place] Infectious disease exposure: The patient was not exposed to C-diff, MRSA, VRE, CRE or Coronavirus. SELF HARM ASSESSMENT: Self harm assessment was performed. The patient answered "no" to the question(s) "Have you recently felt down, depressed, or hopeless?", "Do you have thoughts of harming or killing yourself?", "Do you have a plan for harming or killing yourself?", "Have you recently had thoughts about harming or killing others?", "Do you have any dangerous items in your possession?", "Have you noticed less interest or pleasure in doing things?", "Are you here because you tried to hurt yourself?" and "Have you ever tried to hurt yourself before today?". ABUSE ASSESSMENT: No report of abuse. NUTRITIONAL RISK ASSESSMENT: The nutritional risk assessment revealed no deficiencies. FUNCTIONAL ASSESSMENT: Functional assessment: no impairments noted. LEARNING NEEDS ASSESSMENT: The learning needs assessment revealed no barriers. FALL RISK ASSESSMENT: Fall risk assessment completed. No risk factors identified. SKIN INTEGRITY ASSESSMENT: Skin integrity risk assessment completed. No skin integrity risk identified. --15:03 03/21/21 Lamar Valencia R.N. Interventions Identification and allergy band on patient. To treatment room. --15:03 03/21/21 Lamar Valencia R.N.PHYSICAL ASSESSMENTGENERAL / NEURO / PSYCH: Alert. Oriented X 4.HEENT: Mucous membranes are pink.RESPIRATORY: Respirations not labored. Breath sounds within normal limits.CVS: Normal heart rate and rhythm. Capillary refill less than 2 seconds.GI / : Abdomen soft. Abdominal tenderness in the left lower quadrant. Bowel sounds within normallimits.EXTREMITIES: No lower extremity edema.SKIN: Skin is warm and dry. --15:04 03/21/21 Yola Resendiz R.N. 3 Clinical Report - Nurses [facility] Emergency Department [address] [place] [address] Phone #: ext- [phone] 03/21/2021 14:52 [id number] Sex: F : 1995 Age: 25yNURSING PROGRESS NOTESPatient gowned. Patient identifiers checked. Call light placed in reach. Patient ready for evaluation- EDphysician notified. --15:03 03/21/21 Lamar Valencia R.N. Side rails up x 2. Bed placed in lowest position. Brakes of bed on. --15:03/21/21 Yola Resendiz R.N. 15:03/21/2021 Tylenol (APAP) PO Tablets 1000 mg given. Allergies verified and confirmed 5 rights. Information reviewed with patient including reason for taking this medication, signs of allergic reaction and precautions. Verbalizes understanding. --15:03/21/21 Yola Resendiz R.N. 15:03/21/2021 Zofran ODT (Ondansetron HCl) PO Oral Disintegrating Tablets 8 mg given. Allergies verified and confirmed 5 rights. Information reviewed with patient including reason for taking this medication, signs of allergic reaction and precautions. Verbalizes understanding. --15:03/21/21 Yola Resendiz R.N. Patient ID band checked for patient name and birthdate: patient confirmed. Instructions provided to collect clean catch urine and patient verbalized understanding. Clean catch urine collected; sample sent to lab for urinalysis. Specimen labeled in the presence of the patient. --15:03/21/21 Yola Resendiz R.N. [facility] --15:03/21/21 Yola Resendiz R.N. [facility]. --16:00 03/21/21 Yola Resendiz R.N. 16:09 03/21/21. BP: 105/70. HR: 72. RR: 16. O2 saturation: 100%. --16:09 03/21/21 [facility].DISPOSITION / DISCHARGE 17:01 03/21/21. BP: 112/69. HR: 73. RR: 16. O2 saturation: 99%. Temp: 98.3 F. Pain level now 0/10. --17:01 03/21/21 [place] [address] Condition at departure: unchanged. No learning barriers present. Discharge instructions provided and reviewed with the patient. Reviewed medication(s) side effects, precautions, dosing and course informa tion. Prescription(s) given to the patient and sent electronically to pharmacy. Patient verbalized understanding. Written instructions provided in [place] Island[place]. The patient was discharged home and unaccompanied at time of discharge. She left ambulatory and via private vehicle. Patient driving. --17:12 03/21/21 Yola Resendiz R.N. Departure time: 17:12 03/21/2021. --17:12 03/21/21 Yola Resendiz R.N.Locked/Released at 03/21/2021 17:12 by Yloa Resendiz R.N. 4 Clinical Report - Nurses [facility] Emergency Department [address] [place] [address] Phone #: ext- [phone] 03/21/2021 14:52 Patient: BRITTNY EVERETT Sex: F : 1995 Age: 25y Name Value Range Interpretation Code Description Data Herminia rce(s) Supporting Document(s) ID Date Data Source [id number] 03/21/2021 02:53:00 PM EDT [facility] 1 Clinical Report - Physicians/Mid Levels [facility] Emergency Department [address] [place] [address] Phone #: ext- [phone] 03/21/2021 14:52 Patient: BRITTNY EVERETT Sex: F : 1995 Age: 25y Time Seen: 15:05 03/21/2021. Arrived- By private vehicle. Historian- patient.HISTORY OF PRESENT ILLNESS Chief Complaint: VAGINAL BLEEDING and PELVIC PAIN. This started today. She has had pelvic pain and vaginal bleeding. Is still present. It was abrupt in onset and has been intermittent. Last normal menstrual period- February 06. EDC is November 13. Gestational age is 6 weeks. (Pt had a positive home test yesterday (last menstrual cycle February 06). Today, while at work she began having stabbing left sided pelvic pain and light spotting. She does not have an ob in the area yet, and her blood type is O+.)). Similar symptoms previously. None. Recent medical care: Not recently seen/assessed.REVIEW OF SYSTEMSThe patient has had nausea. No vomiting, diarrhea, black stools, bloody stools or headache. No doublevision, fainting episodes, fever, eye discomfort or eye discharge. No sore throat, cough, difficultybreathing, chest pain or skin rash. No enlarged lymph nodes or joint pain.PAST HISTORYG 6; P 2; Ab 3. Problems: . Anemia. Gastroesophageal Reflux Disease. Depression. Anxiety Reaction. Crohn's Disease. Polycystic Kidney. Additional Surgeries: Ankle surgery. Dental Surgery. Medications: None. Allergies: 2 Clinical Report - Physicians/Mid Levels [facility] Emergency Department [address] [place] [address] Phone #: ext- [phone] 03/21/2021 14:52 Patient: BRITTNY EVERETT Sex: F : 1995 Age: 25y Iodine.SOCIAL HISTORYNever smoker. No alcohol use or drug use.PHYSICAL EXAMVital Signs: 03/21/2021 14:56 BP: 111/70. MAP: 83. HR: 70. RR: 16. O2 saturation: 99%. Temp: 98.7 F.Have been reviewed as normal. Oxygen saturation normal.Appearance: Alert. Oriented X3. No acute distress.HEENT: Normal external inspection.ENT: Pharynx normal.Neck: Neck supple.CVS: Heart sounds normal.Respiratory: No respiratory distress. Breath sounds normal.Abdomen: Soft. Mild tenderness in the suprapubic area. Bowel sounds normal. No mass.Back: Normal external inspection.Skin: Skin warm and dry. Normal skin color. Normal skin turgor.Extremities: Extremities nontender. No pathologic edema.Neuro: Oriented X 3.LABS, X-RAYS, AND EKGLaboratory Tests: Laboratory tests have been ordered, with results reviewed and considered in themedical decision making process. US OB TRANSVAGINAL SIERRA: (MILEY: 03/21/2021 15:34) ( [facility]12[facility] In Progress US OB TRANSVAGINAL SIERRA Reason for Exam: abd pain and vaginal bleeding TRANSPORTATION: AMB IV? N O2? N STATUS: ISOLATION N CBC w Diff: (MILEY: 03/21/2021 16:00) ( [facility] 03/21/2021 16:15) Final results Test Result Flag Units (Reference) CBC W/AUTOMATED DIFF COMPLETE BLOOD COUNT WBC 6.3 10/uL (4.2 - 11.0) RBC 4.49 10/uL (4.20 - 5.40) HEMOGLOBIN 13.1 g/dL (12.0 - 16.0) HEMATOCRIT 38.2 % (37.0 - 47.0) MCV 85.1 fL (81.0 - 101) MCH 29.2 pg (27.0 - 34.0) MCHC 34.3 g/dL (31.0 - 36.0) RDW 12.7 % (11.5 - 14.5) PLATELETS 250 10/uL (150 - 450) MPV 9.9 fL (7.4 - 10.4) NEUT 56.5 % (37.0 - 80.0) LYMPH 34.1 % (25.0 - 40.0) MONO 6.5 % (3.0 - 8.0) EOS 2.1 % (0.0 - 7.0) BASO 0.5 % (0.0 - 2.5) %IG 0.3 H % (0.0 - 0.0) 3 Clinical Report - Physicians/Mid Levels [facility] Emergency Department [address] [place] [address] Phone #: ext- [phone] 03/21/2021 14:52 Patient: BRITTNY EVERETT Sex: F : 1995 Age: 25y %NRBC 0.0 % (0.0 - 0.0) #NEUT 3.58 10/uL (2.00 - 6.90) #LYMPH 2.16 10/uL (0.60 - 3.40) #MONO 0.41 10/uL (0.00 - 0.90) #EOS 0.13 10/uL (0.00 - 0.70) #BASO 0.03 10/uL (0.00 - 0.20) #IG 0.02 10/uL (0.00 - 0.10) #NRBC 0.00 10/uL (0.00 - 0.00) MANUAL DIFF NOT INDICATED RBC MORPH NOT INDICATEDCMP: (MILEY: 03/21/2021 16:00) ( MsgRcvd 03/21/2021 16:40) Final results Test Result Flag Units (Reference) COMPREHENSIVE METABOLIC PANEL COMPREHENSIVE METABOLIC PANEL SODIUM 139 mEq/L (134 - 153) POTASSIUM 4.1 mEq/L (3.6 - 5.0) CHLORIDE 104 mEq/L (98 - 107) CO2 26 MEQ/L (22 - 30) GLUCOSE 88 MG/DL (70 - 99) BUN 11 MG/DL (7 - 21) CREATININE 0.6 L MG/DL (0.7 - 1.5) BUN/CREAT 18 (8 - 27) TOTAL PROTEIN 6.9 G/DL (6.3 - 8.2) ALBUMIN 4.4 G/DL (3.9 - 5.0) GLOBULIN 2.5 GM/DL (2.4 - 3.2) A/G RATIO 1.8 (0.8 - 2.0) CALCIUM 9.1 MG/DL (8.4 - 10.2) TOTAL BILI 0.8 MG/DL (0.2 - 1.3) ALKALINE PHOS 50 U/L (38 - 126) SGOT/AST 17 U/L (5 - 40) SGPT/ALT 9 U/L (7 - 56) ANION GAP 9.0 mmol/L (8.0 - 16.0) AGE 25 yrs NON-AA GFR >60 mL/min AFR AMER GFR >60 mL/min Male GFR Interprentation 20-49 yrs >60 mL/min Afvhxa49-71 yrs >56 mL/min Normal 60-69 yrs >49 mL/min Normal 70-79yrs>42 mL/min Normal 80 and above >35 mL/min Normal Female GFRInterpretation 20-39 yrs >60 mL/min Normal 40-49 yrs >58 mL/minNormal 50-59 yrs >51 mL/min Normal 60-69 yrs >45 mL/min Demove04-90 yrs >39 mL/min Normal 80 and above >32 mL/min NormalType Rh: (MILEY: 03/21/2021 16:00) ( MsgRcvd 03/21/2021 16:39) Final results Test Result Flag Units (Reference) ABO GROUP O RH TYPE POSITIVE { ABO/RH REENTER O POSITIVEUrinalysis: (MILEY: 03/21/2021 15:30) ( MsgRcvd 03/21/2021 15:53) Final results Test Result Flag Units (Reference) URINALYSIS URINALYSIS SOURCE R COLOR yellow (NORMAL: Yello 4 Clinical Report - Physicians/Mid Levels [facility] Emergency Department [address] [place] [address] Phone #: ext- [phone] 03/21/2021 14:52 Patient: BRITTNY EVERETT Sex: F : 1995 Age: 25y CLARITY clear (NORMAL: Clear SPEC GRAVITY 1.015 (1.001 - 1.030 pH 7 (5 - 9) GLUCOSE NORM (NORMAL: Negat BILIRUBIN NEG (NORMAL: Negat KETONE NEG (NORMAL: Negat PROTEIN NEG (NORMAL: Negat NITRITE NEG (NORMAL: Negat BLOOD NEG (NORMAL: Negat LEUK EST 100 A (NORMAL: Negat UROBILINOGEN NOR (less than 1.0 MICROSCOPIC See Below WBC None Seen (NORMAL: NONE RBC None Seen (NORMAL: NONE BACTERIA 1+ SMALL (NORMAL: NONE Beta-HCG, Quant Serum: (MILEY: 03/21/2021 16:00) ( MsgRcvd 03/21/2021 16:48) Final results Test Result Flag Units (Reference) HCG QUANT 117.5 mIU/mL Interpretation: Less than 5 mU/mL: Negative 6-10 mU/mL: Borderline (suggest repeat in 48 hours) >10: Positive Approx HCG range (mU/mL) Weeks post LMP 5.4-708 mU/mL 3-4 Weeks 217-28060 mU/mL 5-6 Weeks 4059-846565 mU/mL 7-8 Weeks 12911-683539 mU/mL 9-10 Weeks 05530-33208 mU/mL 12-14 Weeks 48214-49240 mU/mL 15-16 Weeks 8240-37313 mU/mL 17-18 Weeks US OB 1ST TRI W TV IF NEEDED: (MILEY: 03/21/2021 15:21) ( MsgRcvd 03/21/2021 15:35) Canceled US OB 1ST TRI W TV IF NEEDED Reason(s): abd pain and vag bleeding TRANSPORTATION: WC IV? IV?(No) O2? Oxygen?(No) Citlali . Note - Tests: (OB US- 1. No intrauterine gestation seen. This may represent a very early or nonviable gestation. Ectopic has not been entirely excluded for this patient. Close follow-up is recommended. 2. No adnexal mass or current evidence for torsion with color flow and vascular waveforms documented.).PROGRESS AND PROCEDURESCourse of Care: 16:57 Mar 21 2021. Evaluation after observation. (Discussed risks, benefits, options andpt is agreeable with dx and tx plan, needs to follow up with OB in 3 days for repeat Beta HCG). Patient counseled in person regarding the patient's stable condition, test results, diagnosis and need for follow-up. Patient agrees with plan of ca re. 16:58 Mar 21 2021. Disposition: Discharged home in good and improved condition (16:58 Mar 21 2021).CLINICAL IMPRESSION First trimester ; positive test in emergency department. Ultrasound was performed but could not determine the location of the . 5 Clinical Report - Physicians/Mid Levels [facility] Emergency Department [address] [place] [address] Phone #: ext- [phone] 03/21/2021 14:52 Patient: BRITTNY EVERETT Sex: F : 1995 Age: 25y Acute urinary tract infection with cystitis. No hematuria.INSTRUCTIONS No sexual contact until symptoms resolve. Warnings: Further evaluation is necessary in order to conduct further tests. It is very important to follow up with a healthcare provider. GENERAL WARNINGS: Return or contact your physician immediately if your condition worsens or changes unexpectedly, if not improving as expected, or if other problems arise. Specifically return if pain or bleeding worsens. Your Current Medications: . No home medication. Prescription Medications: cephalexin 500 mg capsule Take 1 capsule three times a day for 7 days -- Dispense 21 capsule. Refills: 0. Substitution permitted. Pharmacy - [facility] #[id number] - [address], [place] [phone]. FaxNumber: . ondansetron 8 mg disintegrating tablet Take 1 tablet three times a day for 10 days -- Dispense 30 tablet. Refills: 0. Substitution permitted. Pharmacy - [facility] #[id number] - [address], [place] [phone]. . Follow-up: Follow up with your doctor [facility] in three days. Reason for referral: evaluation, treatment and repeat Beta Hcg and serial US. Summary of care provided to patient. Understanding of the discharge instructions verbalized by patient.(Electronically signed by IGNACIA Saunders 03/21/2021 19:47) Name Value Range Interpretation Code Description Data [facility](s) Supporting Document(s) ID Date Data Source [id number] 03/21/2021 02:53:00 PM EDT [facility] Addenda for BRITTNY EVERETT VisitID: [id number] Date: 13:39Pt urine growing E. COli [id number], d/c on cephalexin 500mg PO TIDx7 days which is sensitive, shownto Eladia BETH at 1338, no further treatment required.(Electronically signed by Chandrika Real R.N. - 03/26/2021 13:39) Name Value Range Interpretation Code Description Data [facility](s) Supporting Document(s) ID Date Data Source [id number] 03/21/2021 08:37:00 PM EDT [facility] [address] [place] [address] PHONE: [phone] FAX: [phone] Name .................. : MARGUERITE Domingo Acct Number.................. : [id number] ROOM. ................. : TR-04 MR Number ................... : [id number] Stay type ............. : E/R Discharge Date......... ... : 03/21/21 Admit Date ......... : 03/21/21 Admit Phys .................... : COONEYNORM Date of ....... : 1995 Family Phys ................... : UNKNOWN CO Phone .................. : [phone] Age ................................ : 25 Film# .................. .:[id number] Sex ................................. : F Unsigned transcriptions are preliminary reports and do not represent a medical or legal [place] [id number] COMPLETE:03/21/21 16:12 [facility] [id number] Reason for Exam: abd pain and vaginal bleeding ULTRASOUND PELVIS INDICATION: Abdominal pain and vaginal bleeding. COMPARISON: None Preliminary report for this exam was provided by [facility] . TECHNIQUE: Ultrasound of the pelvis is performed using transvaginal technique. FINDINGS: Uterus: Size 7.5 x 7.2 x 4.3 cm. No focal uterine masses. No intrauterine gestation. Endometrium: thickness is 12 mm with uniform appearance. No endometrial canal fluid. Right ovary: 4.3 x 2.0 x 3.5 cm. No ovarian or adnexal masses. Doppler imaging shows blood flow to the ovary. Left Ovary: 4.9 x 2.5 x 2.7 cm. No ovarian or adnexal masses. Doppler imaging shows blood flow to the ovary. No free fluid. IMPRESSION: Normal adnexa. Endometrial thickness 12 mm. No IUP is identified. No fluid in the endometrial canal. If this patient is the absence of a confirmed IUP can indicate early gestation with ectopic not excluded. No specifically suggestive findings of ectopic. If not Page 1 of 2 [facility] [address] [place] [address] PHONE: [phone] FAX: [phone] Name .................. : MARGUERITE Domingo Acct Number.................. : [id number] ROOM. ................. : TR-04 MR Number ................... : [id number] Stay type ............. : E/R Discharge Date......... ... : 03/21/21 Admit Date ......... : 03/21/21 Admit Phys .................... : COONEYNORM Date of ....... : 1995 Family Phys ................... : UNKNOWN CO Phone .................. : [phone] Age ................................ : 25 Film# .................. .:[id number] Sex ................................. : F Unsigned transcriptions are preliminary reports and do not represent a medical or legal document [place]AL U [id number] COMPLETE: 11/05 16:12 [facility] [id number] Reason for Exam: abd pain and vaginal bleeding depending on phase of menstrual cycle this degree of endometrial thickening can be within normal range. Electronically Reviewed and Signed By Sriram Liu MD , 03/21/21 20:37, SCB Transcribe Initials: LEXUS , Transcribe Date: 03/21/21 19:06, Dictation Date: Copy for: EMERGENCY DEPT via modem Copy for: 710 MED REC DISCHARGED Page 2 of 2 Name Value Range Interpretation Code Description Data Herminia rce(s) Supporting Document(s) ID Date Data Source [id number] 03/21/2021 04:48:00 PM EDT [facility] Name Value Range Interpretation Code Description Data Herminia rce(s) Supporting Document(s) Choriogonadotropin.intact [Units/volume] in Serum or Plasma 117.5 mIU /mL [facility] Interpr etation: Less than 5 mU/mL: Negative 6-10 mU/mL: Borderline (suggest repeat in 48 hours) >10: Positive Approx HCG range (mU/mL) Weeks post LMP 5.4-708 mU/mL 3-4 Weeks 217-30869 mU/mL 5-6 Weeks 4059-529903 mU/mL 7-8 Weeks 04721-416263 mU/mL 9-10 Weeks 62224-72110 mU/mL 12-14 Weeks 88800-44435 mU/mL 15-16 Weeks 8240- 77672 mU/mL 17-18 Weeks ID Date Data Source [id number] 03/21/2021 04:40:00 PM EDT [facility] Name Value Range Interpretation Code Description Data Herminia rce(s) Supporting Document(s) COMPREHENSIVE METABOLIC PANEL [facility] COMPREHENSIVE METABOLIC PANEL Sodium [Moles/volume] in Serum or Plasma 139 mEq/L 134 - 153 [facility] Potassium [Moles/volume] in Serum or Plasma 4.1 mEq/L 3.6 - 5.0 [facility] Chloride [Moles/volume] in Serum or Plasma 104 mEq/L 98 - 107 [facility] Carbon dioxide, total [Moles/volume] in Serum or Plasma 26 MEQ/L 22 - 30 [facility] Glucose [Mass/volume] in Serum or Plasma 88 MG/DL 70 - 99 [facility] BUN 11 MG/DL 7 - 21 [facility] Creatinine [Mass/volume] in Serum or Plasma 0.6 MG/DL 0.7 - 1.5 L [facility] BUN/CREAT 18 8 - 27 [facility] Protein [Mass/volume] in Serum or Plasma 6.9 G/DL 6.3 - 8.2 [facility] Albumin [Mass/volume] in Serum or Plasma 4.4 G/DL 3.9 - 5.0 [facility] Globulin [Mass/volume] in Serum by calculation 2.5 GM/DL 2.4 - 3.2 [facility] A/G RATIO 1.8 0.8 - 2.0 [facility] Calcium [Mass/volume] in Serum or Plasma 9.1 MG/DL 8.4 - 10.2 [facility] Bilirubin.total [Mass/volume] in Serum or Plasma 0.8 MG/DL 0.2 - 1.3 [facility] Alkaline phosphatase [Enzymatic activity/volume] in Serum or Plasma 50 U/L 38 - 126 [facility] Aspartate aminotransferase [Enzymatic activity/volume] in Serum or Plasma 17 U/L 5 - 40 [facility] Alanine aminotransferase [Enzymatic activity/volume] in Seru m or Plasma 9 U/L 7 - 56 [facility] Anion gap 3 in Serum or Plasma 9.0 mmol/L 8.0 - 16.0 [facility] AGE 25 yrs [facility] NON-AA GFR >60 mL/min [facility] ital AFR AMER GFR >60 mL/min [facility] Male GFR In terprentation 20-49 yrs >60 mL/min Normal 50-59 yrs >56 mL/min Normal 60-69 yrs >49 mL/min Normal 70-79yrs >42 mL/min Normal 80 and above >35 mL/min Normal Female GFR Interpretation 20-39 yrs >60 mL/min Normal 40-49 yrs >58 mL/min Normal 50-59 yrs >51 mL/min Normal 60-69 yrs >45 mL/min Normal 70-79 yrs >39 mL/min Normal 80 and above >32 mL/min Normal ID Date Data Source [id number] 03/21/2021 04:39:00 PM EDT [facility] Name Value Range Interpretation Code Description Data Herminia rce(s) Supporting Document(s) ABO group [Type] in Blood O [facility] Rh [Type] in Blood POSITIVE [facility] { ABO/RH REENTER O POSITIVE ID Date Data Source [id number] 03/21/2021 04:15:00 PM EDT [facility] Name Value Range Interpretation Code Description Data Herminia rce(s) Supporting Document(s) CBC W/AUTOMATED DIFF [facility] COMPLETE BLOOD COUNT Leukocytes [#/volume] in Blood by Automated count 6.3 10^3/uL 4.2 - 1 1.0 [facility] Erythrocytes [#/volume] in Blood by Automated count 4.49 10^6/uL 4. 20 - 5.40 [facility] Hemoglobin [Mass/volume] in Blood 13.1 g/dL 12.0 - 16.0 [facility] Hematocrit [Volume Fraction] of Blood by Automated count 38.2 % 3 7.0 - 47.0 [facility] Erythrocyte mean corpuscular volume [Entitic volume] by Auto mated count 85.1 fL 81.0 - 101 [facility] Erythrocyte mean corpuscular hemoglobin [Entitic mass] by Automated count 29.2 pg 27.0 - 34.0 [facility] Erythrocyte mean corpuscular hemoglobin concentration [Mass/volume] by Automated count 34.3 g/dL 31.0 - 36.0 [facility] Erythrocyte distribution width [Ratio] by Automated count 12.7 % 11.5 - 14.5 [facility] Platelets [#/volume] in Blood by Automated count 250 10^3/uL 150 - 45 0 [facility] Platelet mean volume [Entitic volume] in Blood by Automated count 9.9 fL 7.4 - 10.4 [facility] Neutrophils/100 leukocytes in Blood by Automated count 56.5 % 37. 0 - 80.0 [facility] Lymphocytes/100 leukocytes in Blood by Manual count 34.1 % 25.0 - 40.0 [facility] Monocytes/100 leukocytes in Blood by Automated count 6.5 % 3.0 - 8.0 [facility] Eosinophils/100 leukocytes in Blood by Automated count 2.1 % 0.0 - 7.0 [facility] Basophils/100 leukocytes in Blood by Automated count 0.5 % 0.0 - 2.5 [facility] %IG 0.3 % 0.0 - 0.0 H [facility] al %NRBC 0.0 % 0.0 - 0.0 [facility] Neutrophils [#/volume] in Blood by Automated count 3.58 10^3/uL 2.00 - 6.90 [facility] Lymphocytes [#/volume] in Blood by Automated count 2.16 10^3/uL 0.60 - 3.40 [facility] Monocytes [#/volume] in Blood by Automated count 0.41 10^3/uL 0.00 - 0.90 [facility] Eosinophils [#/volume] in Blood by Automated count 0.13 10^3/uL 0.00 - 0.70 [facility] Basophils [#/volume] in Blood by Automated count 0.03 10^3/uL 0.00 - 0.20 [facility] #IG 0.02 10^3/uL 0.00 - 0.10 [facility] #NRBC 0.00 10^3/uL 0.00 - 0.00 [facility] MANUAL DIFF NOT INDICATED [facility] RBC MORPH NOT INDICATED [facility] spital ID Date Data Source [id number] 03/26/2021 06:46:00 AM EDT [facility] Name Value Range Interpretation Code Description Data Herminia rce(s) Supporting Document(s) CULTURE URINE [facility] _CULTURE URINE_$$[id number]$$358668$$908814$$779088$$135664$$461531$$233509$$937296$$107138$$ 665666$$732448$$408801$$329474$$322139$$156038$$756976$$602288$$669461$$056752$$ 269553$$058760$$621863$$087445$$198904$$907469$$603029$$858696 -- Continued on next page --Patient: MARGUERITE Domingo Order: [id number] Page 2Culture: CULTURE URINE Status: Final ==== -- Continued on next page --Patient: MARGUERITE Domingo Order: [id number] Page 2Culture: CULTURE URINE Status: Prelim =====$$[id number] DATE/TIME: 03/26/2021 06:06Culture: CULTURE URINE Status: FinalIsolate 1 Escherichia coli Flag: A . . . . . . .1Multi-Drug Resistant Lmclzada63,000-100,000 colony forming units per mLCefazolin <=4 ug/mLCefazolin with an MARTIN <=16 predicts susceptibility to the oral agentscefaclor, cefdinir, cefpodoxime, cefprozil, cefuroxime, cephalexin,and loracarbef when used for therapy of uncomplicated urinary tractinfections due to E. coli, Klebsiella pneumoniae, and Proteusmirabilis. Previous result entered on 03/25/2021 06:07 ET Gram negative rods50,000-100,000 colony forming units per mLUrine Culture,Comprehensive: I5Cgdwaikeouy coli Flag: APatient: MARGUERITE Domingo Order: [id number] Page 3Culture: CULTURE URINE Status: Final ====ISOLATE 1 Escherichia coli Isolate 1Antibiotic MARTIN IntUnits ug/mL ----Amoxicillin/Clavulanic Acid S S . . . . . .20-8Ampicillin R R . . . . . .28-1Cefepime S S . . . . . .6644-9Ceftriaxone S S . . . . . .141-2Cefuroxime S S . . . . . .145- 3Ciprofloxacin R R . . . . . .185-9Ertapenem S S . . . . . .72296-3Gozrvpskid R R . . . . . .267-5Imipenem S S . . . . . .279-0Levofloxacin R R . . . . . .29176-4Hreqgmgkz S S . . . . . .6652-2Nitrofurantoin S S . . . . . .363- 2Piperacillin/Tazobactam S S . . . . . .412-7Tetracycline R R . . . . . .496-0Tobramycin I I . . . . . .508-2Trimethoprim/Sulfa R R . . . . . .516-5P1 Test performed by: [facility] #: [id number] [address] [id number] [facility] [id number] Director : Prince Logan MD NPI #:Settlement Clerk : 03/25/21.XMT.SENT REF 03/26/21.XMT.SENT REF ID Date Data Source [id number] 03/24/2021 06:21:00 AM EDT [facility] Name Value Range Interpretation Code Description Data Herminia rce(s) Supporting Document(s) Chlamydia trachomatis rRNA [Presence] in Unspecified specimen by Probe and target amplification method Negative Negative [facility] Neisseria gonorrhoeae rRNA [Presence] in Unspecified specimen by Probe and target amplification method Negative Negative [facility] ID Date Data Source [id number] 03/21/2021 03:45:00 PM EDT [facility] Name Value Range Interpretation Code Description Data Herminia rce(s) Supporting Document(s) [facility] R [facility] COL[facility] yellow NORMAL: Yellow [facility] CLARITY clear NORMAL: Clear [facility] Specific gravity of Urine by Test strip 1.015 1.001 - 1.030 [facility] pH 7 5 - 9 [facility] Glucose [Mass/volume] in Urine by Test strip NORM NORMAL: Negat [facility] Bilirubin.total [Presence] in Urine by Test strip NEG NORMAL: Negative [facility] Ketones [Presence] in Urine by Test strip NEG NORMAL: Negative [facility] Protein [Mass/volume] in Urine by Test strip NEG NORMAL: Negat [facility] Nitrite [Presence] in Urine by Test strip NEG NORMAL: Negative [facility] BLOOD NEG NORMAL: Negative [facility] LEUK EST 100 NORMAL: Negative [facility] Urobilinogen [Mass/volume] in Urine by Test strip NOR less hugh n 1.0 mg/dL [facility] MICROSCOPIC See Below [facility] ital WBC None Seen NORMAL: NONE SEEN [facility] Erythrocytes [#/volume] in Urine by Test strip None Seen NORMAL: NON E SEEN [facility] Bacteria [Presence] in Urine sediment by Light microscopy 1+ SMALL NORMAL: NONE SEEN [facility] ID Date Data Source [id number] 09/18/2020 02:09:00 PM EST [facility] 1 OrderSheet [facility] Emergency Department [address] [place] [address] Phone #: ext- [phone] 09/18/2020 14:08 Patient: BRITTNY EVERETT Sex: F : 1995 Age: 24yWEIGHT:82.5 kg (M) HEIGHT:73 inches (S) BMI:24.0ALLERGIES: Bees, Iodinated Diagnostic Agents, Latex, Shellfish-derived ProductsCHIEF COMPLAINT: Lt, index fingerDIAGNOSIS: Laceration - InjuryLAB ORDERSOrder Description Priority Entered Acknowledged InitialedDIAGNOSTIC STUDY ORDERSOrder Description Priority Entered Acknowledged InitialedMEDICATION/IV/DRIP/FLUID ORDERSOrder Description Priority Entered Acknowledged InitialedGENERAL ORDERSOrder Description Priority Entered Acknowledged InitialedDress Wounds 15:47 09/18/2020 16:18 Farhan(Bulky) (Telfa pad) Eber Cobos R.N., P.A.-C;[Electronically signed by Chandrika Real R.N. (16:18 09/18/2020)][Electronically signed by Eber Robert P.A.-C (22:11 09/18/2020)][Electronically locked by Chandrika Real R.N. (16:18 09/18/2020)] Name Value Range Interpretation Code Description Data Herminia rce(s) Supporting Document(s) ID Date Data Source [id number] 09/18/2020 02:09:00 PM EST [facility] 1 Medication Reconciliation Report [facility] Emergency Department [address] [place] [address] Phone #: ext- [phone] 09/18/2020 14:08 Patient: BRITTNY EVERETT Sex: F : 1995 Age: 24yWeight: 82.5 kgHeight/Length: 73 in.BMI: 24.0ALLERGIES: Bees, Iodinated Diagnostic Agents, Latex, Shellfish-derived ProductsThe patient's Home Medications are listed below:NONE.The source(s) of the original Home Medication information:patientThe following Medications were given to the patient in the Emergency Department:None.The following Medications were prescribed to the patient:cephalexin 500 mg capsule Take 1 capsule three times a day for 7 days -- Dispense 21 capsule.Refills: 0. Substitution permitted.[id number] [address] [place], [place] [id number]. . -- Eber Robert P.A.-C Name Value Range Interpretation Code Description Data Herminia e(s) Supporting Document(s) ID Date Data Source [id number] 09/18/2020 02:09:00 PM [place] [address] Medication Administration Record [facility] Emergency Department [address] [place] [address] Phone #: ext [phone] 09/18/2020 14:08 Patient: BRITTNY EVERETT Sex: F : 1995 Age: 24yWeight: 82.5 kgHeight/Length: 73 inBMI: 24ALLERGIES: Latex, Bees, Iodinated Diagnostic Agents, Shellfish-derived ProductsDate/Time Medication Administered Medication Ordered Name Value Range Interpretation Code Description Data [facility](s) Supporting Document(s) ID Date Data Source [id number] 09/18/2020 02:09:00 PM [facility] 1 General Instructions [facility] Emergency Department [address] [place] [address] Phone #: ext [phone] 09/18/2020 14:08 Patient: BRITTNY EVERETT Sex: F : 1995 Age: 24y Single superficial laceration to the left index finger. No foreign body present or left fingernail injury.INSTRUCTIONS Protect wound and keep wound area clean. Allow steri-strips to remain in place until they loosen. Limit use of your left hand for two weeks. Do not work for three days. No dietary restrictions. (Recommend to utilize OTC Motrin and Tylenol to control inflammation and pain management. Recommend to follow the instructions on the bottle and not to exceed.). Warnings: COMPLICATIONS: Complications from this condition are possible. INFECTION: Watch for signs of infection (increasing heat and redness, pus-like drainage, swelling, or increased pain). Return or see your doctor if these signs occur. GENERAL WARNINGS: Return or contact your physician immediately if your condition worsens or changes unexpectedly, if not improving as expected, or if other problems arise. Prescription Medications: cephalexin 500 mg capsule Take 1 capsule three times a day for 7 days -- Dispense 21 capsule. Refills: 0. Substitution permitted. Pharmacy - [id number] - [address] [place], [place] [id number]. . Follow-up: Return to the emergency department as needed. Follow up with your healthcare provider in two days if not better. Call for an appointment. Understanding of the discharge instructions verbalized by patient. ADDITIONAL INFORMATIONLaceration, All ClosuresA laceration is a cut through the skin. This will usually require stitches or josefina if it's deep. Minorcuts may be treated with a surgical tape closure or skin glue. 2 General Instructions [facility] Emergency Department [address] [place] [address] Phone #: ext- [phone] 09/18/2020 14:08 Patient: BRITTNY EVERETT Sex: F : 1995 Age: 24yHome care Your healthcare provider may prescribe an antibiotic. This is to help prevent infection. Follow all instructions for taking this medicine. Take the medicine every day until it's gone or you are told to stop. You should not have any left over. The healthcare provider may prescribe medicines for pain. If no pain medicines were prescribed, you can use amht-png-aernbyt pain medicines. Follow instructions for taking any pain medicines. Talk with your healthcare provider before using these medicines if you have chronic liver or kidney disease, or ever had a stomach ulcer or digestive bleeding. Follow the healthcare provider's instructions on how to care for the cut. Keep the wound clean and dry. Don't get the wound wet until you are told it's OK to do so. If the area gets wet, gently pat it dry with a clean cloth. Replace the wet bandage with a dry one. If a bandage was applied and it becomes wet or dirty, replace it. Otherwise, leave it in place for the first 24 hours. Caring for stitches or josefina: Once you no longer need to keep them dry, clean the w ound daily. First, remove the bandage. Then wash the area gently with soap and clean running water, or as directed by the healthcare provider. Use a wet cotton swab to loosen and remove any blood or crust that forms. After cleaning, apply a thin layer of antibiotic ointment if advised. Then put on a new bandage unless you are told not to. Caring for skin glue: Don't put apply liquid, ointment, or cream on the wound while the glue is 3 General Instructions [facility] Emergency Department [address] [place] [address] Phone #: ext- [phone] 09/18/2020 14:08 Patient: BRITTNY EVERETT Sex: F : 1995 Age: [address] Don't do activities that cause heavy sweating. Protect the wound from sunlight. Don't scratch, rub, or pick at the adhesive film. Don't place tape directly over the film. The glue should peel off naturally within 5 to 10 days. Caring for surgical tape: Keep the area dry. If it gets wet, blot it dry with a clean towel. Surgical tape usually falls off within 7 to 10 days. If it has not fallen off after 10 days, you can take it off yourself. Put mineral oil or petroleum jelly on a cotton ball and gently rub the tape until it's removed. Once you can get the wound wet, you may shower as usual but don't soak the wound in water (no tub baths or swimming). Even with proper treatment, a wound infection may sometimes occur. Check the wound daily for signs of infection listed below.Scalp woundsDuring the first 2 days, you may carefully rinse your hair in the shower to remove blood, glass or dirtparticles. After 2 days, you may shower and shampoo your hair normally. Don't soak your scalp in thetub or go swimming until the stitches or josefina have been removed. Talk with your healthcareprovider before applying any antibiotic ointment to the wound.Mouth woundsEat soft foods to reduce pain. If the cut is inside of your mouth, clean by rinsing after each meal andat bedtime with a mixture of equal parts water and hydrogen peroxide (don't swallow!). Or you canuse a cotton swab to directly apply hydrogen peroxide onto the cut. You may also be prescribed achlorhexidine solution to rinse with. Mouth wounds can be painful when eating. You may use yeusei-hzo-jxneidm local numbing solution for pain relief. If this is not available, you may use anynumbing solution intended for teething babies. You may apply this directly to the sores with acotton-tip swab or with your clean finger.Follow-up careFollow up with your healthcare provider as advised. Ask your healthcare provider how long stitchesshould be left in place. Be sure to return for stitch removal as directed. If dissolving stitches wereused in the mouth, these should fall out or dissolve without the need for removal. If tape closureswere used, remove them yourself when your provider recommends if they have not fallen off on theirown. If skin glue was used, the film will wear off by itself. Generally, you should keep healing woundsout of direct sunlight for the first couple of months to try to lessen scarring.When to seek medical adviceCall your healthcare provider right away if any of these occur: 4 General Instructions [facility] Emergency Department [address] [place] [address] Phone #: ext- [phone] 09/18/2020 14:08 [facility]: [id number] Sex: F : 1995 Age: 24y Signs of infection, including increasing pain in the wound, increasing wound redness or swelling, or pus or bad odor coming from the wound Fever of 100.4F (38.C) or higher , or as directed by your healthcare provider Stitches or josefina come apart or fall out or surgical tape falls off before 7 days and the wound appears to be reopening Wound edges reopen Wound changes colors Numbness around the wound after any numbing medicine should have worn off Decreased movement around the injured areaCall 911Call 911 if you can't control the wound bleeding with direct pressure. [phone] [employer]. [address] [place] [address]. All rights reserved. This information is not intended as asubstitute for professional medical care. Always follow your healthcare professional's instructions.Extremity Laceration: Stitches, Norton, or TapeA laceration is a cut through the skin. If it is deep, it may require stitches or josefina to close so it canheal. Minor cuts may be treated with surgical tape closures, or skin glue.X-rays may be done if something may have entered the skin through the cut. You may also need atetanus shot if you are not up to date on this vaccine.Home care Follow the healthcare provider's instructions on how to care for the cut. Wash your hands with soap and warm water before and after caring for your wound. This is to help prevent infection. Ke ep the wound clean and dry. If a bandage was applied and it becomes wet or dirty, replace it. Otherwise, leave it in place for the first 24 hours, then change it once a day or as directed. If stitches or josefina were used, clean the wound daily: o After removing the bandage, wash the area with soap and water. Use a wet cotton swab to loosen and remove any blood or crust that forms. o After cleaning, keep the wound clean and dry. Talk with your healthcare provider 5 General Instructions [facility] Emergency Department [address] [place] [address] Phone #: ext- [phone] 09/18/2020 14:08 [facility]: [id number] Sex: F : 1995 Age: 24y before putting any antibiotic ointment on the wound. Reapply the bandage. You may remove the bandage to shower as usual after the first 24 hours, but don't soak the area in water (no swimming) until the stitches or josefina are removed. If surgical tape closures were used, keep the area clean and dry. If it becomes wet, blot it dry with a towel. Let the surgical tape fall off on its own. The healthcare provider may prescribe an antibiotic cream or ointment to prevent infection. He or she may also prescribe an antibiotic pill. Don't stop taking this medicine until you have finished it all or the provider tells you to stop. The provider may also prescribe medicine for pain. Follow the instructions for taking these medicines. Don't do activities that may reopen your wound.Follow-up careFollow up with your healthcare provider, or as advised. Most skin wounds heal within 10 days. But aninfection may sometimes occur even with proper treatment. Check the wound daily for the signs ofinfection listed below. Stitches and josefina should be removed within 7 to14 days. If surgical tapeclosures were used, you may remove them after 10 days if they have not fallen off by then.When to seek medical adviceCall your healthcare provider right away if any of these occur: Wound bleeding not controlled by direct pressure Signs of infection, including increasing pain in the wound, increasing wound redness or swelling, or pus or bad odor coming from the wound Fever of 100.4F (38C) or higher, or as directed by your healthcare provider Stitches or josefina come apart or fall out or surgical tape falls off before 7 days Wound edges reopen Wound changes colors Numbness occurs around the wound Decreased movement around the injured area [id number] [employer]. [address] [place] [address], [place] [address]. All rights reserved. This information is not intended as asubstitute for professional medical care. Always follow your healthcare professional's instructions. 6 General Instructions [facility] Emergency Department [address] [place] [address] Phone #: ext- [phone] 09/18/2020 14:08 Patient: BRITTNY EVERETT Sex: F : 1995 Age: 24yExt remity Laceration: Skin GlueA laceration is a cut through the skin. You have a laceration that has been closed with skin glue. Thisis used on cuts that have smooth edges and are not infected. It's best used on straight, clean cuts onareas that do not get a lot of tension.You may need a tetanus shot. This is given if you have no record of a shot, and the object thatcaused the cut may lead to tetanus.Home care Your healthcare provider may prescribe an antibiotic. This is to help prevent infection. Follow all instructions for taking this medicine. Take the medicine every day until it is gone or you are told to stop. You should not have any left over. The healthcare provider may prescribe medicines for pain. Follow instructions for taking them. Follow the healthcare provider's instructions on how to care for the cut. No bandage is needed. Skin glue peels off on its own within 5 to 10 days. Most skin wounds heal within 10 days. Keep the wound clean. You may shower or bath e as usual, but do not use soaps, lotions, or ointments on the wound area. Do not scrub the wound. After bathing, pat the wound dry with a soft towel. Don't scratch, rub, or pick at the film. Don't place tape directly over the film. Don't put liquids such as peroxide, ointments, or creams on the wound while the skin glue is in place. Many oil based products can weaken and dissolve the glue. Don't do any activities that may reinjure your wound. Don't do any activities that cause heavy sweating. Protect the wound from sunlight. Most skin wounds heal without problems. But an infection sometimes occurs even with proper treatment. Watch for the signs of infection listed below.Follow-up careFollow up as directed with your healthcare provider, or as advised.When to seek medical adviceCall your healthcare provider right away if any of these occur: Wound bleeding not controlled by direct pressure 7 General Instructions [facility] Emergency Department [address] [place] [address] Phone #: [phone] 09/18/2020 14:08 Patient: BRITTNY EVERETT Sex: F : 1995 Age: 24y Signs of infection, including increasing pain in the wound, increasing wound redness or swelling, or pus or bad odor coming from the wound Fever of 100.4F (38.C) or higher, or as directed by your healthcare provider Wound edges reopen Wound changes colors Numbness around the wound Decreased movement around the injured area [id number] [employer]. [address] [place] [address]. All rights reserved. This information is not intended as asubstitute for professional medical care. Always follow your healthcare professional's instructions.Laceration, All ClosuresA laceration is a cut through the skin. This will usually require stitches or josefina if it's deep. Minorcuts may be treated with a surgical tape closure or skin glue.Home care Your healthcare provider may prescribe an antibiotic. This is to help prevent infection. Follow all instructions for taking this medicine. Take the medicine every day until it's gone or you are told to stop. You should not have any left over. 8 General Instructions [facility] Emergency Department [address] [place] [address] Phone #: ext- [phone] 09/18/2020 14:08 Patient: BRITTNY EVERETT Sex: F : 1995 Age: 24y The healthcare provider may prescribe medicines for pain. If no pain medicines were prescribed, you can use [id number] pain medicines. Follow instructions for taking any pain medicines. Talk with your healthcare provider before using these medicines if you have chronic liver or kidney disease, or ever had a stomach ulcer or digestive bleeding. Follow the healthcare provider's instructions on how to care for the cut. Keep the wound clean and dry. Don't get the wound wet until you are told it's OK to do so. If the area gets wet, gently pat it dry with a clean cloth. Replace the wet bandage with a dry one. If a bandage was applied and it becomes wet or dirty, replace it. Otherwise, leave it in place for the first 24 hours. Caring for stitches or josefina: Once you no longer need to keep them dry, clean the wound daily. First, remove the bandage. Then wash the area gently with soap and clean running water, or as directed by the healthcare provider. Use a wet cotton swab to loosen and remove any blood or crust that forms. After cleaning, apply a thin layer of antibiotic ointment if advised. Then put on a new bandage unless you are told not to. Caring fo r skin glue: Don't put apply liquid, ointment, or cream on the wound while the glue is in place. Don't do activities that cause heavy sweating. Protect the wound from sunlight. Don't scratch, rub, or pick at the adhesive film. Don't place tape directly over the film. The glue should peel off naturally within 5 to 10 days. Caring for surgical tape: Keep the area dry. If it gets wet, blot it dry with a clean towel. Surgical tape usually falls off within 7 to 10 days. If it has not fallen off after 10 days, you can take it off yourself. Put mineral oil or petroleum jelly on a cotton ball and gently rub the tape until it's removed. Once you can get the wound wet, you may shower as usual but don't soak the wound in water (no tub baths or swimming). Even with proper treatment, a wound infection may sometimes occur. Check the wound daily for signs of infection listed below.Scalp woundsDuring the first 2 days, you may carefully rinse your hair in the shower to remove blood, glass or dirtparticles. After 2 days, you may shower and shampoo your hair normally. Don't soak your scalp in thetub or go swimming until the stitches or josefina have been removed. Talk with your healthcareprovider before applying any antibiotic ointment to the wound.Mouth woundsEat soft foods to reduce pain. If the cut is inside of your mouth, clean by rinsing after each meal and 9 General Instructions [facility] Emergency Department [address] [place] [address] Phone #: [phone] ext- [phone] 09/18/2020 14:08 Patient: BRITTNY EVERETT Sex: F : 1995 Age: 24yat bedtime with a mixture of equal parts water and hydrogen peroxide (don't swallow!). Or you canuse a cotton swab to directly apply hydrogen peroxide onto the cut. You may also be prescribed achlorhexidine solution to rinse with. Mouth wounds can be painful when eating. You may use uxayjo-woj-quuxrmj local numbing solution for pain relief. If this is not available, you may use anynumbing solution intended for teething babies. You may apply this directly to the sores with acotton-tip swab or with your clean finger.Follow-up careFollow up with your healthcare provider as advised. Ask your healthcare provider how long stitchesshould be left in place. Be sure to return for stitch removal as directed. If dissolving stitches wereused in the mouth, these should fall out or dissolve without the need for removal. If tape closureswere used, remove them yourself when your provider recommends if they have not fallen off on theirown. If skin glue was used, the film will wear off by itself. Generally, you should keep healing woundsout of direct sunlight for the first couple of months to try to lessen scarring.When to seek medical adviceCall your healthcare provider right away if any of these occur: Signs of infection, including increasing pain in the wound, increasing wound redness or swelling, or pus or bad odor coming from the wound Fever of 100.4F (38.C) or higher , or as directed by your healthcare provider Stitches or josefina come apart or fall out or surgical tape falls off before 7 days and the wound appears to be reopening Wound edges reopen Wound changes colors Numbness around the wound after any numbing medicine should have worn off Decreased movement around the injured areaCall 911Call 911 if you can't control the wound bleeding with direct pressure. [phone] [employer]. [address] [place] [address]. All rights reserved. This information is not intended as asubstitute for professional medical care. Always follow your healthcare professional's instructions.Extremity Laceration: Stitches, Josefina, or Tape 10 General Instructions [facility] Emergency Department [address] [place] [address] Phone #: ext- [phone] 09/18/2020 14:08 [facility]: [id number] Sex: F : 1995 Age: 24yA laceration is a cut through the skin. If it is deep, it may require stitches or josefina to close so it canheal. Minor cuts may be treated with surgical tape closures, or skin glue.X-rays may be done if something may have entered the skin through the cut. You may also need atetanus shot if you are not up to date on t his vaccine.Home care Follow the healthcare provider's instructions on how to care for the cut. Wash your hands with soap and warm water before and after caring for your wound. This is to help prevent infection. Keep the wound clean and dry. If a bandage was applied and it becomes wet or dirty, replace it. Otherwise, leave it in place for the first 24 hours, then change it once a day or as directed. If stitches or josefina were used, clean the wound daily: o After removing the bandage, wash the area with soap and water. Use a wet cotton swab to loosen and remove any blood or crust that forms. o After cleaning, keep the wound clean and dry. Talk with your healthcare provider before putting any antibiotic ointment on the wound. Reapply the bandage. You may remove the bandage to shower as usual after the first 24 hours, but don't soak the area in water (no swimming) until the stitches or josefina are removed. If surgical tape closures were used, keep the area clean and dry. If it becomes wet, blot it dry with a towel. Let the surgical tape fall off on its own. The healthcare provider may prescribe an antibiotic cream or ointment to prevent infection. He or she may also prescribe an antibiotic pill. Don't stop taking this medicine until you have finished it all or the provider tells you to stop. The provider may also prescribe medicine for pain. Follow the instructions for taking these medicines. Don't do activities that may reopen your wound.Follow-up careFollow up with your healthcare provider, or as advised. Most skin wounds heal within 10 days. But aninfection may sometimes occur even with proper treatment. Check the wound daily for the signs ofinfection listed below. Stitches and josefina should be removed within 7 to14 days. If surgical tapeclosures were used, you may remove them after 10 days if they have not fallen off by then. 11 General Instructions [facility] Emergency Department [address] [place] [address] Phone #: ext [phone] 09/18/2020 14:08 Patient: BRITTNY EVERETT Sex: F : 1995 Age: 24yWhen to seek medical adviceCall your healthcare provider right away if any of these occur: Wound bleeding not controlled by direct pressure Signs of infection, including increasing pain in the wound, increasing wound redness or swelling, or pus or bad odor coming from the wound Fever of 100.4F (38C) or higher, or as directed by your healthcare provider Stitches or josefina come apart or fall out or surgical tape falls off before 7 days Wound edges reopen Wound changes colors Numbness occurs around the wound Decreased movement around the injured area [phone] [employer]. [address] [place] [address]. All rights reserved. This information is not intended as asubstitute for professional medical care. Always follow your healthcare professional's instructions. You have been given the following additional information: Laceration: All Closures Laceration, Extremity: Stitches, Staple, or Tape Laceration, Extremity: Skin Glue Laceration: All Closures Laceration, Extremity: Stitches, Staple, or Tape Limit use of your left hand for two weeks. Do not work for three days.(Electronically signed by Eber Robert P.A.-C 09/18/2020 22:11) Name Value Range Interpretation Code Description Data Herminia rce(s) Supporting Document(s) ID Date Data Source [id number] 09/18/2020 02:09:00 PM EST [facility] 1 Clinical Report - Nurses [facility] Emergency Department [address] [place] [address] Phone #: ext- [phone] 09/18/2020 14:08 Patient: BRITTNY EVERETT Sex: F : 1995 Age: 24yTRIAGEArrived by private vehicle. Historian: patient. Unaccompanied.Triage time: late entry - 14:08 09/18/2020. Acuity: LEVEL 4.Chief Complaint: LACERATION.Alert. No acute distress.Location of injuries: tip of left index finger. Occurred at work. Occurred late entry - 14:00 09/18/2020. 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 SEPSIS SCREEN NEGATIVE. No suspected or confirmedsigns of infection present. (14:18 09/18/2020). --14:18 09/18/20 Chandrika Real R.N.14:14 09/18/20. BP: 96/71. MAP: 79. HR: 78. RR: 16. O2 saturation: 100% on room air. Temp: 98.3 F(oral). Pain level now: 5/10. --14:18 09/18/20 Chandrika Real R.N.Weight: 82.5 kg measured. Height/Length: 73 inches Per Patient. BMI: 24. --14:08 09/18/20 Chandrika Real R.N.MedicationsNone. --14:15 09/18/20 Chandrika Real R.N.AllergiesBees.Iodinated Diagnostic Agents.Shellfish-derived Products. --14:15 09/18/20 Chandrika Real R.N.Latex. --14:15 09/18/20 Chandrika Real R.N.PROBLEMS:Crohn's Disease.Polycystic Kidney.Anxiety Reaction.Depression. --14:16 09/18/20 Chandrika Real R.N.Medication/allergy information source: the patient. --14:18 09/18/20 Chandrika Real R.N. 2 Clinical Report - Nurses [facility] Emergency Department [address] [place] [address] Phone #: ext- [phone] 09/18/2020 14:08 Patient: BRITTNY EVERETT Sex: F : 1995 Age: 24y ADDITIONAL SURGERIES: Ankle surgery. --14:16 09/18/20 Chandrika Real R.N. History PAST MEDICAL HX: Tetanus status: up-to-date. Immunizations: up-to-date. Last normal menstrual period was 1 week ago. SOCIAL HX: Former smoker, end date 2015. No alcohol use or drug use. She was offered HIV testing but declined. Patient education was provided. She was offered hepatitis C testing but declined. Patient education was provided. ( COVID screen negative). She has not traveled outside the [place] Infectious disease exposure: No infectious disease exposure. The patient was not exposed to Coronavirus. Mask placed on patient. Patient is not a known carrier of tuberculosis, hepatitis, HIV, MRSA or VRE. Patient is not a known carrier of CRE. SELF HARM ASSESSMENT: Self harm assessment was performed. The patient answered "no" to the question(s) "Do you have thoughts of harming or killing yourself?" and "Do you have a plan for harming or killing yourself?". ABUSE ASSESSMENT: Abuse assessment. The patient had positive responses to the question(s) "Do you feel safe in your home?". Abuse denied. No suspicion of abuse. No report of abuse. NUTRITIONAL RISK ASSESSMENT: The nutritional risk assessment revealed no deficiencies. FUNCTIONAL ASSESSMENT: Functional assessment: no impairments noted. LEARNING NEEDS ASSESSMENT: The learning needs assessment revealed no barriers. FALL RISK ASSESSMENT: Fall risk assessment completed. No risk factors identified. SKIN INTEGRITY ASSESSMENT: Skin integrity risk assessment completed. No skin integrity risk identified. --14:18 09/18/20 Chandrika Real R.N. Interventions Identification band on patient. --14:18 09/18/20 Chandrika Real R.N.PHYSICAL ASSESSMENTAmbulatory to room.GENERAL / NEURO / PSYCH: Alert. Oriented X 4.RESPIRATORY: Respirations not labored.EXTREMITIES: Extremities exhibit normal ROM. Tip of left index finger: 1.0 cm laceration with controlledbleeding; (U shaped, skin flap, well approximated).SKIN: Skin is warm and dry. --14:19 09/18/20 Chandrika Real R.N.NURSING PROGRESS NOTESReassurance given. Three patient identifiers checked. Call light placed in reach. Side rails up x 2. Bed 3 Clinical Report - Nurses [facility] Emergency Department [address] [place] [address] Phone #: ext- [phone] 09/18/2020 14:08 Patient: BRITTNY EVERETT Sex: F : 1995 Age: 24y placed in lowest position. Brakes of bed on. Patient ready for evaluation- PA notified. --14:18 09/18/20 Chandrika Real R.N. late entry - 14:39 09/18/20. Wound cleansed (warm soap and water). --15:39 09/18/20 Chandrika Real R.N. late entry - 15:16 09/18/20. Reassessment acuity: LEVEL 4. Rounding: Pain: assessed pain level. Position: states comfortable. Proximity of possessions / care items: call light within easy reach. Set expectations: advised patient of rounding protocol timing and asked if they needed anything else at this time. The patient reports no complaints and she is calm and resting quietly. GENERAL / NEURO / PSYCH: Alert. Oriented X 4. --16:16 09/18/20 Chandrika Real R.N. late entry - 15:46 09/18/20. WOUND REPAIR: Wound repair performed by PA (Taqueria BETH). The wound is located on the left index finger. The wound is flap-like. Preparation. Wound cleansed per PA and irrigated per PA with 1000 mL sterile saline. Procedure: wound repaired with Dermabond and steri-strips. Post-procedure: she was stable, no complications and dressing applied. Patient tolerated the procedure well. Total time of assist / procedure: 15 minutes. --16:16 09/18/20 Chandrika Real R.N. late entry - 16:02 09/18/20. Nail / tip left index finger: applied dressing consisting of telfa pad. Secured with elena. --16:17 09/18/20 Chandrika Real R.N.DISPOSITION / DISCHARGE 15:56 09/18/20. BP: 113/73. MAP: 86. HR: 81. RR: 18. O2 saturation: 98%. Temp: 97.8 F. Pain level now: 09/24. --15:56 09/18/20 [place] qc lab technician, Cory, ER Tech1 Departure time: late entry - 16:13 09/18/2020. Condition at departure: stable. No learning barriers present. Discharge instructions provided and reviewed with the patient. Reviewed warnings (please see paper copy). Reviewed medication(s) side effects, precautions, dosing and course information. Prescription(s) sent electronically to pharmacy (cephalexin). Reviewed wound care instructions. Activity restrictions reviewed. Work note given. Patient verbalized understanding. Written instructions provided in [place]. 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 She was discharged home and unaccompanied at time of discharge. She left ambulatory and via private vehicle. Patient driving. --16:17 09/18/20 Chandrika Real R.N.Locked/Released at 09/18/2020 16:18 by Chandrika Real R.N. 4 Clinical Report - Nurses [facility] Emergency Department [address] [place] [address] Phone #: ext- [phone] 09/18/2020 14:08 Patient: BRITTNY EVERETT Sex: Saloni : 1995 Age: 24y Name Value Range Interpretation Code Description Data Herminia rce(s) Supporting Document(s) ID Date Data Source [id number] 09/18/2020 02:09:00 PM EST [facility] 1 Clinical Report - Physicians/Mid Levels [facility] Emergency Department [address] [place] [address] Phone #: ext- [phone] 09/18/2020 14:08 Patient: BRITTNY EVERETT Sex: Saloni : 1995 Age: 24y Time Seen: 14:41 09/18/2020; initial patient contact, initial documentation. Arrived- By private vehicle. Historian- patient. Disposition decision: 15:47 09/18/2020.HISTORY OF PRESENT ILLNESS Chief Complaint: Injury to the left index finger. The injury happened just prior to arrival. Occurred at work. The patient sustained a laceration. Patient is experiencing mild pain. No injury to the head or neck or other injury. 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 No swelling, tingling, numbness, weakness or foreign body. All othersystems reviewed and are negative.PAST HISTORYSee nurses notes. The patient's dominant hand is the right. Tetanus immunization status is up-to-date. Problems: Di zziness. Changed Mental Status. Gastroesophageal Reflux Disease. Pyelonephritis. Sinusitis. Vertigo. Night Terrors. Other Disease. Crohn's Disease. Polycystic Kidney. Anxiety Reaction. Depression. Drug Poisoning [RuleOut]. Additional Surgeries: Ankle surgery. Medications: None. Allergies: 2 Clinical Report - Physicians/Mid Levels [facility] Emergency Department [address] [place] [address] Phone #: ext- [phone] 09/18/2020 14:08 Patient: BRITTNY EVERETT Sex: F : 1995 Age: 24y Bees. Iodinated Diagnostic Agents. Latex. Shellfish-derived Products.SOCIAL HISTORYFormer smoker. No alcohol use or drug use.ADDITIONAL NOTESThe nursing notes have been reviewed.PHYSICAL EXAMVital Signs: 09/18/2020 14:14 BP: 96/71. MAP: 79. HR: 78. RR: 16. O2 saturation: 100% on room air.Temp: 98.3 F. Pain level now: 5/10. Have been reviewed. Oxygen saturation normal.Appearance: Alert. Oriented X3. No acute distress.ENT: Voice normal.CVS: Normal heart rate and rhythm. No JVD present. Pulses normal. Capillary refill normal. Strongperipheral pulses. Heart sounds normal. Pulses: right radial 2+; left radial 2+.Respiratory: Chest normal on inspection. No respiratory distress. Unlabored respirations. Lungs clear.Good chest movement. Breath sounds normal and equal.Skin: Skin warm and dry.Extremities: Wrist injury present. Hand injury present. Left index finger: superficial 1.0 cm lacerationwith controlled bleeding of the DIP joint and distal phalanx- SEE LACERATION PROCEDURE NOTE #1.Neurovascular intact distally. No erythema, tenderness, swelling, abrasion or ecchymosis. No puncturewound, foreign body or deformity. No limitation in movement. No subungual hematoma or amputationpresent. No left wrist abnormality or left hand complaints. Hand and wrist exam otherwise negative.Extremities otherwise negative.Neuro, Vascular and Tendons: Vascular status intact. Sensation intact. Motor intact. Tendon functionintact. (AIN, PIN, R/U/M intact b/l UE. N/V intact. SILT. A/P FROM).Neuro: Awake. Alert. Mood/affect normal. Speech normal. No motor deficit. No sensory deficit.Psych: Cognition normal. Thought process and content normal. Insight and judgement normal.PROGRESS AND PROCEDURESLaceration Repair: Location: left index finger. Time-out completed immediately before the procedure.Length: 1.5cm. Complexity: simple (closed with tissue adhesive).Wound depth/shape- curved and subcutaneous. Wound is clean. Distal neuro/vascular/tendon statusnormal. Wound cleansed and irrigated extensiv petra with normal saline. Closure of superficial layer. Skinadhesive used. Steri- strips used. Post-procedure: she is stable and there are no complications. Bleedingis controlled and neuro-vascular status is intact distal to the wound. Dressing applied. Tetanusimmunization up-to-date. Course of Care: VSS, NAD, AOx3, interacting well and appropriately, no use of accessory muscle, able to speak full sentences, stable, non-toxic looking. 3 Clinical Report - Physicians/Mid Levels [facility] Emergency Department [address] [place] [address] Phone #: [phone]- [phone] 09/18/2020 14:08 Patient: BRITTNY EVERETT Sex: F : 1995 Age: 24y Enter room and pt lying peacefully in bed in NAD. Patient stable. Denies any new issues, concerns, or complaints. VSS, NAD, Aappropriate for age. Interacting well and appropriately for age. No use of accessory m uscles. Able to verbalize appropriately for age. Able to follow commands. Smiling and playful. Stable. Non-toxic looking. Enter room and pt lying peacefully in bed in NAD. Patient stable. Denies any new issues, concerns, or complaints. Reviewed results. Discussed with attending. Agrees wiht discharge. Enter room and patient lying peacefully in bed in NAD. Patient stable. Denies any new issues, concerns, or complaints. Discussed results with pt. Discussed tx plan with pt. Discussed and counseled on stable condition. Discussed importance of a f/u with PCP. Discussed return to ER criteria. Answered their questions. Indicates and verbalizes that they understand, agree, and will comply with above. Denies any new questions or concerns. Patient has capacity to understand. Discharge decision based on the following: patient's condition is stable; patient's exam is stable; social support is adequate; transportation is available; follow-up is available. Discussed of OTC Motrin and Tylenol to control inflammation and pain management. Informed to follow directions on bottle that are appropriate for age and/or weight. Disposition: Discharged home in good and improved condition. Condition: good and stable.CLINICAL IMPRESSION Single superficial laceration to the left index finger. No foreign body present or left fingernail injury.INSTRUCTIONS Protect wound and keep wound area clean. Allow steri-strips to remain in place until they loosen. Limit use of your left hand for two weeks. Do not work for three days. No dietary restrictions. (Recommend to utilize OTC Motrin and Tylenol to control inflammation and pain management. Recommend to follow the instructions on the bottle and not to exceed.). Warnings: COMPLICATIONS: Complications from this condition are possible. INFECTION: Watch for signs of infection (increasing heat and redness, pus-like drainage, swelling, or 4 Clinical Report - Physicians/Mid Levels [facility] Emergency Department [address] [place] [address] Phone #: [phone]- [phone] 09/18/2020 14:08 Patient: BRITTNY EVERETT Sex: F : 1995 Age: 24y increased pain). Return or see your doctor if these signs occur. GENERAL WARNINGS: Return or contact your physician immediately if your condition worsens or changes unexpectedly, if not improving as expected, or if other problems arise. Prescription Medications: cephalexin 500 mg capsule Take 1 capsule three times a day for 7 days -- Dispense 21 capsule. Refills: 0. Substitution permitted. Pharmacy - [id number] - [address], [place] [id number]. . Follow- up: Return to the emergency department as needed. Follow up with your healthcare provider in two days if not better. Call for an appointment. Understanding of the discharge instructions verbalized by patient.(Electronically signed by Eber Robert P.A.-C 09/18/2020 22:11) Name Value Range Interpretation Code Description Data Herminia rce(s) Supporting Document(s) Procedure Social History Code Duration Value Status Description Data Source(s ) Smoking 10/23/2020 12:00:00 AM EDT Current Smoker completed Curre nt Smoker eCW1 ([facility]) Smoking 07/22/2020 12:00:00 AM EST Current Smoker completed Curre nt Smoker eCW1 ([facility]) Smoking 07/22/2020 12:00:00 AM EST Current Smoker completed Curre nt Smoker eCW1 ([facility]) Smoking 07/22/2020 12:00:00 AM EST Current Smoker completed Curre nt Smoker eCW1 ([facility]) Vital Signs ID Date Data Source UNK Name Value Range Interpretation Code Description Data Source(s) Diastolic blood pressure 58 mm[Hg] 58 mm[Hg] [facility] ([facility]) Oxygen saturation in Arterial blood by Pulse oximetry 99 % 99 % [facility] ([facility]) Body weight 185.50 [lb_av] 185.50 [lb_av] [facility] ([facility]) Body weight 84.143 kg 84.143 kg [facility] ([facility]) Body height 73 [in_i] 73 [in_i] [facility] ([facility]) 6'1" Body mass index (BMI) [Ratio] 24.5 kg/m2 24.5 k g/m2 [facility] ([facility]) Body surface area Derived from formula 2.08 m2 2.08 m2 [facility] ([facility]) Respiratory rate 16 /min 16 /min [facility] ( [facility]) Systolic blood pressure 120 mm[Hg] 120 mm[Hg] M [facility] ([facility]) Heart rate 94 /min 94 /min [facility] ([facility]) Body weight 174 [lb_av] 174 [lb_av] eCW1 ([facility]) Body height 73 [in_i] 73 [in_i] eCW1 ([facility]) Body mass index (BMI) [Ratio] 22.95 kg/m2 22.95 kg/m2 eCW1 ([facility]) Heart rate 81 /min 81 /min eCW1 ([facility]) Respiratory rate 17 /min 17 /min eCW1 ([facility]) Body temperature 98.1 [degF] 98.1 [degF] eCW1 ( [facility]) Systolic blood pressure 120 mm[Hg] 120 mm[Hg] e CW1 ([facility]) Diastolic blood pressure 70 mm[Hg] 70 mm[Hg] eCW1 ([facility]) Patient Treatment Plan of Care Planned Activity Planned Date Details Description Data Source (s) Omeprazole 40 MG Delayed Release Oral Capsule 07/04/2020 12:00:00 A M EST eCW1 ([facility]) meloxicam 7.5 MG Oral Tablet 07/04/2020 12:00:00 AM EST eCW1 ([facility]) topiramate 50 MG Oral Tablet 07/04/2020 12:00:00 AM EST eCW1 ([facility]) Omeprazole 40 MG Delayed Release Oral Capsule 07/04/2020 12:00:00 A M EST eCW1 ([facility]) meloxicam 7.5 MG Oral Tablet 07/04/2020 12:00:00 AM EST eCW1 ([facility]) topiramate 50 MG Oral Tablet 07/04/2020 12:00:00 AM EST eCW1 ([facility]) Omeprazole 40 MG Delayed Release Oral Capsule 07/04/2020 12:00:00 A M EST eCW1 ([facility]) meloxicam 7.5 MG Oral Tablet 07/04/2020 12:00:00 AM EST eCW1 ([facility]) topiramate 50 MG Oral Tablet 07/04/2020 12:00:00 AM EST eCW1 ([facility])
--- OUTSIDE RECORDS SUMMARY | 2021-05-11 08:48 | CCD | Continuity of Care Document ---
Author Author Yanira SMITH DO Organization Unknown Address [address] [place] [address] Phone [phone] Problems Description No Information Available Social History Type Date Description Comments Sex Unknown ETOH Use Denies alcohol use Tobacco Use Start: Unknown End: Unknown Patient is a former smoker Quit 2017 Recreational Drug Use Regularly uses Marijuana Allergies and adverse reactions Active Allergies Criticality Reaction | Severity Comments Date Povidone-Iodine Unable to assess criticality Difficulty breathing, Hives | Severe 05/06/2021 Latex Unable to assess criticality | Severe 05/06/2021 Soy Unable to assess criticality Hives | Moderate 05/06/2021 Lactose Unable to assess criticality Nausea | Moderate 05/06/2021 Shellfish-Derived Products Unable to assess criticality | Severe 05/06/2021 Bee Sting Unable to assess criticality | Severe 05/06/2021 Wasps Unable to assess criticality | Severe 05/06/2021 Enteric Coating Unable to assess criticality Nausea | Moderate 05/06/2021 Medications Active Medications SIG Qnty Indications Ordering Provide r Date Folic Acid 1mg Tablets 1 by mouth every day Unknown Tablets 1 by hardeep th every day Unknown Immunizations Description No Information Available Vital Signs Date Vital Result Comment 05/06/2021 2:25pm BP Systolic 120 mmHg BP Diastolic 58 mmHg Heart Rate 94 /min Respiratory Rate 16 /min O2 % BldC Oximetry 99 % Weight 185.50 lb Weight 84.143 kg Height 73 inches 6'1" BMI (Body Mass Index) 24.5 kg/m2 BSA (Body Surface Area) 2.08 m2 Results Test Acquired Date Facility Test Result H/L Range Note HCG Serum Qual 05/08/2021 [facility] HCG Serum Qual POSITIVE Normal: Negative 1 HCG Serum QL [facility] POSITIVE Normal: Negative 2 Laboratory test finding 05/08/2021 [facility] HCG Serum Quant 26819.0 mIU/mL 3 Laboratory test finding 05/06/2021 [facility] HCG Serum Quant 75456.0 mIU/mL 4, 5 1 if possative do QUANT 2 { KIT LOT # [id number] ) { KIT EXP DATE 08/17/22 ) { PROCEDURAL CONTROL VALID ) 3 Interpretation: Less than 5 mU/mL: Negative 6-10 mU/mL: Borderline (suggest repeat i n 48 hours) >10: Positive Approx HCG range (mU/mL) Weeks post LMP 5.4-708 mU/mL 3-4 Weeks 217-17958 mU/mL 5-6 Weeks 4059-114125 mU/mL 7-8 Weeks 98364-976919 mU/mL 9-10 Weeks 74754-60631 mU/mL 12-14 Weeks 97831-47667 mU/mL 15-16 Weeks 8240-11496 mU/mL 17-18 Weeks 4 BETA HCG-April~BETA H CG-April~.~N91.2 5 Interpretation: Less than 5 mU/mL: Negative 6-10 mU/mL: Borderline (suggest repeat i n 48 hours) >10: Positive Approx HCG range (mU/mL) Weeks post LMP 5.4-708 mU/mL 3-4 Weeks 217-69717 mU/mL 5-6 Weeks 4059-670609 mU/mL 7-8 Weeks 28441-915101 mU/mL 9-10 Weeks 98801-61476 mU/mL 12-14 Weeks 46438-45924 mU/mL 15-16 Weeks 8240-84184 mU/mL 17-18 Weeks Procedures Date Code Description Status 05/06/2021 62925 Office/Outpatient New Low MDM 30 -44 Minutes Completed Medical Devices Description No Information Available Encounters Type Date Location Provider Dx Diagnosis Office Visit 05/06/2021 2:[address] [facility] Brien Smith DO N91.2 Amenorrhea, unspecified Assessments Date Code Description Provider 05/06/2021 N91.2 Amenorrhea, unspecified Brien Smith DO Plan of Treatment 05/06/2021 - Brien Smith DO* N91.2 Amenorrhea, unspecified* Instructions:* 1) will do a beta-hCG and Tuesday. 2) return to clinic as needed. Functional Status Description No Information Available Mental Status Description No Information Available Referrals Description No Information Available
--- OUTSIDE RECORDS SUMMARY | 2021-05-11 08:48 | CCD | Continuity of Care Document ---
Author Author Yanira SMITH DO Organization Unknown Address [address] [place] [address] Phone [phone] Problems Description No Information Available Social History [...] H/L Range Note HCG Serum Qual 05/08/2021 [facility] HCG Serum Qual POSITIVE Normal: Negative 1 HCG Serum QL [facility] POSITIVE Normal: Negative 2 Laboratory test finding 05/06/2021 [facility] HCG Serum Quant 68785.0 mIU/mL 3, 4 1 if possative do QUANT 2 { KIT LOT # [id number] ) { KIT EXP DATE 08/17/22 ) { PROCEDURAL CONTROL VALID ) 3 BETA HCG-April~BETA H CG-April~.~N91.2 4 Interpretation: Less than 5 mU/mL: Negative 6-10 mU/mL: Borderline (suggest repeat i n 48 hours) >10: Positive Approx HCG range (mU/mL) Weeks post LMP 5.4-708 mU/mL 3-4 Weeks 217-96183 mU/mL 5-6 Weeks 4059-390742 mU/mL 7-8 Weeks 83812-818863 mU/mL 9-10 Weeks 49475-17934 mU/mL 12-14 Weeks 87114-42516 mU/mL 15-16 Weeks 8240-31619 mU/mL 17-18 Weeks Procedures Date Code Description Status 05/06/2021 45609 Office/Outpatient New Low MDM 30 -44 Minutes [...]
--- OUTSIDE RECORDS SUMMARY | 2021-05-11 08:48 | CCD | Continuity of Care Document ---
Author Author Yanira SMITH DO Organization Unknown Address [address] [place] [address] Phone [phone] Problems Description No Information Available Social History [...] BSA (Body Surface Area) 2.08 m2 Results Description No Information Available Procedures Date Code Description Status 05/06/2021 66963 Office/Outpatient New Low MDM 30 -44 Minutes [...]
--- OUTSIDE RECORDS SUMMARY | 2021-05-11 08:48 | CCD | Continuity of Care Document ---
Author Author Yanira SMITH DO Organization Unknown Address [address] [place] [address] Phone [phone] Problems Description No Information Available Social History [...] Available Procedures Date Code Description Status 05/06/2021 47439 Office/Outpatient New Low MDM 30 -44 Minutes [...]
--- OUTSIDE RECORDS SUMMARY | 2021-05-11 08:48 | CCD | Continuity of Care Document ---
Author Author Yanira SMITH DO Organization Unknown Address [address] [place] [address] Phone [phone] Problems Description No Information Available Social History [...] Date Facility Test Result H/L Range Note Laboratory test finding 05/06/2021 [facility] HCG Serum Quant 31374.0 mIU/mL 1, 2 1 BETA HCG-April~BETA H CG-April~.~N91.2 2 Interpretation: Less than 5 mU/mL: Negative 6-10 mU/mL: Borderline (suggest repeat i n 48 hours) >10: Positive Approx HCG range (mU/mL) Weeks post LMP 5.4-708 mU/mL 3-4 Weeks 217-92616 mU/mL 5-6 Weeks 4059-488872 mU/mL 7-8 Weeks 49049-040662 mU/mL 9-10 Weeks 35283-26458 mU/mL 12-14 Weeks 76653-67865 mU/mL 15-16 Weeks 8240-80840 mU/mL 17-18 Weeks Procedures Date Code Description Status 05/06/2021 46971 Office/Outpatient New Low MDM 30 -44 Minutes [...]
[2021-05-11] MEDS ORDERED: PRENTAB9 PO (08:50)
[2021-05-11 10:02] LABS: HEMATOCRIT 35.3 % (36.0-47.0); HEMOGLOBIN 11.5 g/dl (12.0-15.5); MEAN CORPUSCULAR HEMOGLOBIN 28.1 pg (27.0-33.0); MEAN CORPUSCULAR HGB CONC 32.6 g/dl (32.0-36.5); MEAN CORPUSCULAR VOLUME 86.3 fl (80.0-96.0); PLATELET COUNT, AUTOMATED 182 10^3/uL (150-450); RED BLOOD COUNT 4.09 10^6/uL (4.00-5.40); WHITE BLOOD COUNT 5.4 10^3/uL (4.0-10.0)
[2021-05-11 10:32] LABS: ATYPICAL LYMPH 6 % (0-5); BASOPHILS 1 % (0-1); EOSINOPHILS 1 % (0-3); LYMPHOCYTES 40 % (16-44); MONOCYTES 3 % (0-5); NEUTROPHILS 49 % (28-66)
[2021-05-11 10:33] LABS: PLATELET ESTIMATE NORMAL (NORMAL)
--- NOTE | 2021-05-11 10:34 | REP ---
INDICATION: VAGINAL BLEEDING. COMPARISON: None. TECHNIQUE: Transvesical imaging FINDINGS: Within the uterus there is an anechoic structure with increased echoes surrounding it consistent with a decidual reaction. Within the gestational sac there is a pole the mean crown-rump length measurement of which is consistent with an 11 week 6 day gestational age. Based on that the estimated date of delivery is 11/24/2021. Doppler interrogation of the heart shows a heart rate of 150 beats per minute. Seen along the inferior margin of the developing chorion there is a small area of decreased echoes measuring approximately 3.1 x 0.7 x 2.6 cm. IMPRESSION: 1. Early OB ultrasound as described above. 2. Small area of subchorionic hemorrhage as described above. Follow-up is suggested. <Electronically signed by Jared Carrillo > 05/11/21 1372
--- OUTSIDE RECORDS SUMMARY | 2021-05-11 10:54 | CCD ---
Author Author [facility] Organization [facility] Address Unknown Phone Unavailable Care Team Providers Care Traffic Signal Mechanic Name Role Phone Nwogu, U Brien DO [...] is protected by Article 27-F of the [facility] Public Health law. If you continue you may have access to information: Regarding HIV / AIDS; Provided by facilities licensed or operated by the [facility] Office of Mental Health; or Provided by the [facility] Office for People With Developmental Disabilities. If such information is present, then the following [facility] mandated warning applies: This information has [...] law may result in a fine or nursing home sentence or both. A general authorization for the release of medical or other information is NOT sufficient authorization for further disc losure. Family History Family Member Name Family Member Gender Family Member Status Date o f Status Description Data Source(s) Unknown Unknown Problem [facility] ([facility], ) Encounters Encounter Providers Location Date Indications Data Source(s ) Outpatient Attender: Brien Petersonjovanymarilu DOConsultant: DILAN LLOYD KNOWN 05/08/2021 07:35:00 AM EDT - 05/08/2021 08:35:00 AM EDT [facility] Outpatient Attender: Brien Petersonjovanymarilu DO Family Practice 04/18 02:15:00 PM EDT [facility] ([facility] Outpatient Attender: Brien Petersonmelanie DOConsultant: DILAN GABINO KNOWN 05/06/2021 02:12:00 PM EDT - 05/06/2021 02:12:00 PM EDT [facility] Emergency Attender: TY TORRES MD 2020 02:53:00 PM EDT - 03/21/2021 05:12:00 PM EDT [facility] Patient discharged. Unknown [address] [facility] [address] 10/24/2020 12:00:00 AM EDT eCW1 ([facility]) Emergency Attender: TY TORRES MD 2020 02:09:00 PM EST - 09/18/2020 04:13:00 PM EST [facility] Patient discharged. Unknown [address] [facility] [address] 08/12/2020 12:00:00 AM EST eCW1 ([facility]) Unknown [address] [facility] [address] 07/22/2020 12:00:00 AM EST eCW1 ([facility]) Outpatient [address] [facility] [address] 07/04/2020 12:00:00 AM EST eCW1 ([facility]) Immunizations Vaccine Date Status Description Data Source(s) COVID-19 VACCINE Moderna 11/28/2020 12:00:00 AM EDT completed [facility]SIIS Vaccine Series Complete: NOThis Data was Submitted to [facility] Via [facility]. Medications Medication Brand Name Start Date Product Form Dose Route Admi nistrative Instructions Pharmacy Instructions Status Indications Reaction Description Data Source(s) meloxicam 7.5 MG Oral Tablet Meloxicam 7.5 MG Meloxicam 7.5 MG 07/04/2020 12:00:00 AM EST 1.0 {tablet} active Me loxicam 7.5 MG eCW1 (Replaced By [facility]) Omeprazole 40 MG Delayed Release Oral Capsule Omeprazole 40 MG 07/04/2020 12:00:00 AM EST active Omeprazo le 40 MG eCW1 (Replaced By [facility]) meloxicam 7.5 MG Oral Tablet Meloxicam 7.5 MG Meloxicam 7.5 MG 07/04/2020 12:00:00 AM EST 1.0 {tablet} active Me loxicam 7.5 MG eCW1 (Replaced By [facility]) Omeprazole 40 MG Delayed Release Oral Capsule Omeprazole 40 MG 07/04/2020 12:00:00 AM EST active Omeprazo le 40 MG eCW1 (Replaced By [facility]) meloxicam 7.5 MG Oral Tablet Meloxicam 7.5 MG Meloxicam 7.5 MG 07/04/2020 12:00:00 AM EST 1.0 {tablet} active Me loxicam 7.5 MG eCW1 (Replaced By [facility]) Omeprazole 40 MG Delayed Release Oral Capsule Omeprazole 40 MG 07/04/2020 12:00:00 AM EST active Omeprazo le 40 MG eCW1 (Replaced By [facility]) meloxicam 7.5 MG Oral Tablet Meloxicam 7.5 MG Meloxicam 7.5 MG 07/04/2020 12:00:00 AM EST 1.0 {tablet} active Me loxicam 7.5 MG eCW1 (Replaced By [facility]) topiramate 50 MG Oral Tablet Topiramate 50 MG Topiramate 50 MG 07/04/2020 12:00:00 AM EST 1.0 {tablet} active To piramate 50 MG eCW1 (Replaced By [facility]) Omeprazole 40 MG Delayed Release Oral Capsule Omeprazole 40 MG 07/04/2020 12:00:00 AM EST active Omeprazo le 40 MG eCW1 (Replaced By [facility]) topiramate 50 MG Oral Tablet Topiramate 50 MG Topiramate 50 MG 07/04/2020 12:00:00 AM EST 1.0 {tablet} active To piramate 50 MG eCW1 (Replaced By [facility]) topiramate 50 MG Oral Tablet Topiramate 50 MG Topiramate 50 MG 07/04/2020 12:00:00 AM EST 1.0 {tablet} active To piramate 50 MG eCW1 (Replaced By [facility]) topiramate 50 MG Oral Tablet Topiramate 50 MG Topiramate 50 MG 07/04/2020 12:00:00 AM EST 1.0 {tablet} active To piramate 50 MG eCW1 (Replaced By [facility]) Insurance Providers Payer name Policy type / Coverage type Policy ID Covered constitution party ID Covered constitution party's relationship to forbes Policy Forbes Plan Information [facility] ACTIVE DUTY [id number] SP [id number] [facility] (2018) Health Maintenance Organization (HMO) [id number] Self [id number] U [id number] Self [id number] [facility] HUMANA - O/P [id number] 18 [id number] [facility] MANAGEMENT MELVIN [id number] SP [id number] HUMAN [facility] REG O [id number] S [id number] ACTIVE DUTY [id number] SP [id number] ANSI-Not a Secondary Insurance [id number] [facility] [id number] SP [id number] [facility] O [id number] O [id number] [facility] ACTIVE DUTY [id number] SP [id number] [facility] OPTUM - FAC [id number] Problems, Conditions, and Diagnoses Code Display Name Description Problem Type Effective Dates Data Source(s) Z3A01 Less than 8 weeks gestation of Less than 8 weeks gestation of Diagnosis 03/21/2021 02:53:00 PM EDT [facility] O2311 Infections of bladder in , firs t trimester Infections of bladder in , first trimester Diagnosis 03/21/2021 02:53:00 PM EDT [facility] O209 Hemorrhage in early , unspecifi ed Hemorrhage in early , unspecified Diagnosis 03/21/2021 02:53:00 PM EDT [facility] Y9289 Other specified places as the place of o ccurrence of the external cause Other specified places as the place of occurrence of the external cause Diagnosis 09/18/2020 02:09:00 PM [facility] [id number] Contact with unspecified sharp object(s) , initial encounter Contact with unspecified sharp object(s), initial encounter Diagnosis 021 02:09:00 PM [facility] [id number] Latex allergy status Latex allergy status Diagnosis 09/18/2020 02:09:00 PM [facility] [id number] Personal history of nicotine dependence Personal history of nicotine dependence Diagnosis 09/18/2020 02:09:00 PM [facility] [id number] Laceration without foreign b maggie of left index finger without damage to nail, initial encounter Laceration without foreign body of left index finger without damage to nail, initial encounter Diagnosis 09/18/2020 02:09:0 0 PM [facility] [id number] Unspecified injury of left wrist, hand a nd finger(s), initial encounter Unspecified injury of left wrist, hand and finger(s), initial encounter Diagnosis 09/18/2020 02:09:00 PM [facility] G43.009 [id number] Migraine without aur a and without status migrainosus, not intractable Problem 07/04/2020 12:00:00 AM EST [facility] ([facility]) K21.9 [id number] Gastroesophageal ref lux disease, unspecified whether esophagitis present Problem 07/04/2020 12:00:00 AM EST [facility] ([facility]) Surgeries/Procedures Procedure Description Date Indications Data Source(s) OFFICE OUTPATIENT NEW 30 MINUTES 05/06/2021 12:00:00 A M EDT [facility] ([facility]) Results ID Date Data Source [id number] 05/08/2021 07:15:00 AM EDT [facility] ([facility]) Name Value Range Interpretation Code Description Data Herminia rce(s) Supporting Document(s) Choriogonadotropin.beta subunit [Moles/volume] in Seru m or Plasma 16635.0 mIU/mL [facility] ([facility]) if possative do QUANT ID Date Data Source [id number] 05/08/2021 07:15:00 AM EDT [facility] ([facility]) Name Value Range Interpretation Code Description Data Herminia rce(s) Supporting Document(s) HCG Serum QL [facility] test result [facility] ([facility]) if possative do QUANT HCG Serum Qual Laboratory test result [facility] ([facility]) if possative do QUANT ID Date Data Source [id number] 05/08/2021 10:43:00 AM EDT [facility] Name Value Range Interpretation Code Description Data Herminia rce(s) Supporting Document(s) Choriogonadotropin.intact [Units/volume] in Serum or Plasma 62830.0 mIU/mL [facility] Interpr etation: Less than 5 mU/mL: Negative 6-10 mU/mL: Borderline (suggest repeat in 48 hours) >10: Positive Approx HCG range (mU/mL) Weeks post LMP 5.4-708 mU/mL 3-4 Weeks 217-45451 mU/mL 5-6 Weeks 4059-481229 mU/mL 7-8 Weeks 11124-482169 mU/mL 9-10 Weeks 36147-01476 mU/mL 12-14 Weeks 47689-10839 mU/mL 15-16 Weeks 8240- 45930 mU/mL 17-18 Weeks ID Date Data Source [id number] 05/08/2021 08:11:00 AM EDT [facility] Name Value Range Interpretation Code Description Data Herminia rce(s) Supporting Document(s) HCG SERUM QUAL POSITIVE NORMAL: NEGATIVE [facility] HCG SERUM QL REENTER POSITIVE NORMAL: NEGATIVE [facility] { KIT LOT # [id number] ){ KIT EXP DATE 08/17/22 ){ PROCEDURAL CONTROL VALID ) ID Date Data Source [id number] 05/06/2021 03:52:00 PM EDT [facility] ([facility]) Name Value Range Interpretation Code Description Data Herminia rce(s) Supporting Document(s) Choriogonadotropin.beta subunit [Moles/volume] in Seru m or Plasma 32531.0 mIU/mL [facility] ([facility]) BETA HCG-April~BETA HCG-APRIL 18~.~N91.2 ID Date Data Source [id number] 05/06/2021 08:47:00 PM EDT [facility] Name Value Range Interpretation Code Description Data Herminia rce(s) Supporting Document(s) Choriogonadotropin.intact [Units/volume] in Serum or Plasma 01205.0 mIU/mL [facility] Interpr etation: Less than 5 mU/mL: Negative 6-10 mU/mL: Borderline (suggest repeat in 48 hours) >10: Positive Approx HCG range (mU/mL) Weeks post LMP 5.4-708 mU/mL 3-4 Weeks 217-44051 mU/mL 5-6 Weeks 4059-656736 mU/mL 7-8 Weeks 96295-824226 mU/mL 9-10 Weeks 80502-27968 mU/mL 12-14 Weeks 78644-92563 mU/mL 15-16 Weeks 8240- 35825 mU/mL 17-18 Weeks ID Date Data Source [id number] 03/21/2021 02:53:00 PM EDT [facility] 1 OrderSheet [facility] Emergency Department [address] [place] [address] Phone #: ext- [phone] 03/21/2021 14:52 Patient: BRITTNY EVERETT Sex: F : 1995 Age: 25yWEIGHT:86.6 kg (M) HEIGHT:73 inches (S) BMI:25.2ALLERGIES: IodineCHIEF COMPLAINT: pelvic pain, vag bleedingDIAGNOSIS: Urinary tract infectious disease, Patient currently LAB ORDERSOrder Description Priority Entered Acknowledged InitialedCBC w Diff STAT 15:21 03/21/2021 16:09 Yola Resendiz R.N.; Reason for ordering with alerts: Clinical consideration given -- 15:21 03/21/2021 Christiano Rodarte PAChlamydia/GC STAT 15:03/21/2021 15:26 Yola Resendiz R.N.; Reason for ordering with alerts: Clinical consideration given -- 15:03/21/2021 Christiano BETH NOTES: urineCMP STAT 15:03/21/2021 16:09 Yola Resendiz R.N.; Reason for ordering with alerts: Clinical consideration given -- 15:03/21/2021 Christiano Rodarte PACulture, Urine STAT 15:03/21/2021 15:26 Yola Resendiz(Urine, Clean Christiano Gutierrez) IGNACIA; Reason for ordering with alerts: Clinical consideration given -- 15:03/21/2021 Christiano Rodarte PAType Rh STAT 15:03/21/2021 16:09 Yola Resendiz R.N.; Reason for ordering with alerts: Clinical consideration given -- 15:03/21/2021 Christiano Rodarte PAUrinalysis (Clean STAT 15:03/21/2021 15:26 Tiffanie Resendiz) Christiano BETH; Reason for ordering with alerts: Clinical consideration given -- 15:03/21/2021 Christiano BETH 2 OrderSheet [facility] Emergency Department [address] [place] [address] Phone #: ext- [phone] 03/21/2021 14:52 Patient: BRITTNY EVERETT Sex: F : 1995 Age: 25yHCG Serum Quant STAT 15:21 03/21/2021 16:09 Yola Resendiz R.N.; Reason for ordering [...] Description Priority Entered Acknowledged InitialedTylenol PO 1000 15:21 03/21/2021 15:26 Castro Resendiz R.N.; Reason for ordering with alerts: Clinical consideration given -- 15:03/21/2021 Christiano Rodarte PAZofran ODT PO 8 15:21 03/21/2021 15:26 Castro Resendiz R.N.; Reason for ordering with alerts: Clinical consideration given -- 15:21 03/21/2021 Christiano Rodarte PAGENERAL ORDERSOrder Description Priority Entered Acknowledged Initialed[Electronically signed by Yola Resendiz R.N. (17:12 03/21/2021)][Electronically signed by Christiano Rodarte (19:47 03/21/2021)][Electronically locked by Yola Resendiz R.N. (17:12 03/21/2021)] Name Value Range Interpretation Code Description Data Herminia rce(s) Supporting Document(s) ID Date Data Source [id number] 03/21/2021 02:53:00 PM EDT [facility] 1 Medication Reconciliation Report [facility] Emergency Department [address] [place] [address] Phone #: ext- [phone] 03/21/2021 14:52 Patient: BRITTNY EVERETT Sex: F : 1995 Age: 25yWeight: 86.6 kgHeight/Length: 73 in.BMI: 25.2ALLERGIES: IodineThe patient's Home Medications are listed below:NONE.The source(s) of the original Home Medication information:Not obtained.The following Medications were given to the patient in the Emergency Department:Tylenol [PO] PO 1000 mg, administered: 15:03/21/2021Zofran ODT [PO] PO 8 mg, administered: 15:03/21/2021The following Medications were prescribed to the patient:cephalexin 500 mg capsule Take 1 capsule three times a day for 7 days -- Dispense 21 capsule.Refills: 0. Substitution permitted.[facility] #[id number] [id number]. .ondansetron 8 mg disintegrating tablet Take 1 tablet three times a day for 10 days -- Dispense 30tablet. Refills: 0. Substitution permitted.[id number] - [address] [place], [place] [id number]. . -- IGNACIA Saunders Name Value Range Interpretation Code Description Data Herminia rce(s) Supporting Document(s) ID Date Data Source [id number] 03/21/2021 02:53:00 PM EDT [facility] 1 Medication Administration Record [facility] Emergency Department [address] [place] [address] Phone #: ext- [phone] 03/21/2021 14:52 Patient: BRITTNY EVERETT Sex: F : 1995 Age: 25yWeight: 86.6 kgHeight/Length: 73 inBMI: 25.2ALLERGIES: Iodine Date/Time Medication Administered Medication OrderedGiven TYLENOL [PO] (APAP) Tylenol PO 1000 mg15:26 03/21/2021 Dose: 1000 mg Tablets Yola Blair R.N.Given ZOFRAN ODT [PO] (ONDANSETRON Zofran ODT PO 8 mg15:26 03/21/2021 HCL)Yola Resendiz R.N. Dose: 8 mg Oral Disintegrating Tablets PO Name Value Range Interpretation Code Description Data Herminia rce(s) Supporting Document(s) ID Date Data Source [id number] 03/21/2021 02:53:00 PM EDT [facility] 1 General Instructions [facility] Emergency Department [address] [place] [address] Phone #: ext- [phone] 03/21/2021 14:52 Patient: BRITTNY EVERETT Sex: F [...] Dispense 21 capsule.Refills: 0. Sub[facility] permitted.[id number] [address] [place], [place] [id number]. .ondansetron 8 mg disintegrating tablet Take 1 tablet three times a day for 10 days -- Dispense 30tablet. Refills: 0. Substitution permitted.Pharmacy - [facility] #[id number] - [address] [facility] ; [place], [place] [id number]. .Follow-up:Follow up with your doctor DIRECTOR [employer] in three d ays. Reason for referral: evaluation, treatment and repeatBeta Hcg and serial US. Summary of care provided to patient.Understanding of the discharge instructions verbalized by patient. ADDITIONAL INFORMATIONPregnancy 2 General Instructions [facility] Emergency Department [address] [place] [address] Phone #: ext- [phone] 03/21/2021 14:52 Patient: [...] care for a healthy 3 General Instructions [facility] Emergency Department [address] [place] [address] Phone #: ext- [phone] 03/21/2021 14:52 Patient: BRITTNY EVERETT [facility]#: [id number] Sex: F : 1995 Age: 25yHere are [...] can seeyo ur family provider, a specialist (felt strip finisher), a livestock agent, or a primary care clinic.When to seek medical adviceCall your healthcare provider right away if any of these occur: Vaginal bleeding Pain in your belly (abdomen) or back that is moderate or severe 4 General Instructions [facility] Emergency Department [address] [place] [address] Phone #: ext- [phone] 03/21/2021 14:52 Patient: BRITTNY EVERETT Sex: F : 1995 Age: 25y Lots of vomiting, or you can't keep any fluids down for 6 hours Burning feeling when you urinate Headache, dizziness, or rapid weight gain Fever Vision changes or blurred vision [employer]. [address] [place] [address]. All rights reserved. This information is not [...] spreads to the kidney. 5 General Instructions [facility] Emergency Department [address] [place] [address] Phone #: ext- [phone] 03/21/2021 14:52 Patient: [...] to back. Bowel incontinence 6 General Instructions [facility] Emergency Department [address] [place] [address] Phone #: ext- [phone] 03/21/2021 14:52 Patient: [...] for a long time. 7 General Instructions [facility] Emergency Department [address] [place] [address] Phone #: ext- [phone] 03/21/2021 14:52 Patient: [...] if the results will affect your treatment.Call [phone] if any of the following occur: Trouble [...] down Weakness or dizziness 8 General Instructions [facility] Emergency Department [address] [place] [address] Phone #: ext- [phone] 03/21/2021 14:52 Patient: BRITTNY EVERETT Sex: F : 1995 Age: 25y Vaginal discharge Pain, redness, or swelling in the outer vaginal area (labia) [phone] [employer] [place] [address]. All rights reserved. This information is not intended as asubstitute for professional medical care. Always follow your healthcare professional's instructions. You have been given the following additional information: , New Dx Bladder Infection, Female (Adult)(Electronically signed by IGNACIA Saunders 03/21/2021 19:47) Name Value Range Interpretation Code Description Data Herminia rce(s) Supporting Document(s) ID Date Data Source [id number] 03/21/2021 02:53:00 PM EDT [facility] 1 Clinical Report - Nurses [facility] Emergency Department [address] [place] [address] Phone #: cwa- [phone] 03/21/2021 14:52 Patient: BRITTNY EVERETT Sex: F [...] yet, and her blood type is O+.).Treatment STAFF MIDWIFE/APPRENTICESHIP DIRECTOR:None.SEPSIS SCREEN: SIRS SCREEN NEGATIVE. SEPSIS SCREEN NEGATIVE. [...] Valencia R.N. 2 Clinical Report - Nurses [facility] Emergency Department [address] [place] [address] Phone #: ext- [phone] 03/21/2021 14:52 Patient: BRITTNY EVERETT Sex: F [...] on patient. To treatment room. --15:03 03/21/21 Laamr Valencia R.N.PHYSICAL ASSESSMENTGENERAL / NEURO / PSYCH: Alert. Oriented X 4.HEENT: Mucous membranes are pink.RESPIRATORY: Respirations not labored. Breath sounds within normal limits.CVS: Normal heart rate and rhythm. Capillary refill less than 2 seconds.GI / : Abdomen soft. Abdominal tenderness in the left lower quadrant. Bowel sounds within normallimits.EXTREMITIES: No lower extremity edema.SKIN: Skin is warm and dry. --15:03/21/21 Yola Resendiz R.N. 3 Clinical Report - Nurses [facility] Emergency Department [address] [place] [address] Phone #: ext- [phone] 03/21/2021 14:52 Patient: BRITTNY EVERETT Sex: F : 1995 Age: 25yNURSING PROGRESS NOTESPatient gowned. Patient identifiers checked. Call light placed in reach. Patient ready for evaluation- EDphysician notified. --15:03 03/21/21 Lamar Valencia R.N. Side rails up x 2. Bed placed in lowest position. Brakes of bed on. --15:03/21/21 Yola Resendiz R.N. 15:26 03/21/2021 Tylenol (APAP) PO Tablets 1000 mg given. Allergies verified and confirmed 5 rights. Information reviewed with patient including reason for taking this medication, signs of allergic reaction and precautions. Verbalizes understanding. --15:03/21/21 Yola Resendiz R.N. 15:26 03/21/2021 Zofran ODT (Ondansetron HCl) PO Oral Disintegrating [...] labeled in the presence of the patient. --15:27 03/21/21 Yola Resendiz R.N. Patient transported to sonogram with radiology transcriptionist. --15:03/21/21 Yola Resendiz R.N. Patient returned from sonogram by wheelchair with radiology transcriptionist. --16:00 03/21/21 Yola Resendiz R.N. 16:09 03/21/21. BP: 105/70. HR: 72. RR: 16. O2 saturation: 100%. --16:09 03/21/21 [facility] Tech, [facility], Tech1.DISPOSITION / DISCHARGE 17:01 03/21/21. BP: 112/69. HR: 73. RR: 16. O2 saturation: 99%. Temp: 98.3 F. Pain level now 0/10. --17:01 03/21/21 [facility] Tech, [facility], ER Tech1 Condition at departure: unchanged. No learning barriers present. Discharge instructions provided and reviewed with the patient. Reviewed medication(s) side effects, precautions, dosing and course informa tion. Prescription(s) given to the patient and sent electronically to pharmacy. Patient verbalized understanding. Written instructions provided in Yemeni. The patient was discharged home and unaccompanied at time of discharge. She left ambulatory and via private vehicle. Patient driving. --17:12 03/21/21 Yola Resendiz R.N. Departure time: 17:12 03/21/2021. --17:12 03/21/21 Yola Resendiz R.N.Locked/Released at 03/21/2021 17:12 by Yola Resendiz R.N. 4 Clinical Report - Nurses [facility] Emergency Department [address] [place] [address] Phone #: ext- [phone] 03/21/2021 14:52 Patient: BRITTNY EVERETT Sex: F : 1995 Age: 25y Name Value Range Interpretation Code Description Data Herminia rce(s) Supporting Document(s) ID Date Data Source [id number] 03/21/2021 02:53:00 PM EDT [facility] 1 Clinical Report - Physicians/Mid Levels [facility] Emergency Department [address] [place] [address] Phone #: ext- [phone] 03/21/2021 14:52 Patient: [...] Allergies: 2 Clinical Report - Physicians/Mid Levels [facility] Emergency Department [address] [place] [address] Phone #: ext- [phone] 03/21/2021 14:52 Patient: [...] and considered in themedical decision making process. OB TRANSVAGINAL SALAMATOF: (MILEY: 03/21/2021 15:34) ( [facility] 03/21/2021 16:12) In Progress OB TRANSVAGINAL SALAMATOF Reason for Exam: abd pain and vaginal bleeding TRANSPORTATION: AMB IV? N O2? N STATUS: ISOLATION N CBC w Diff: (MILEY: 03/21/2021 16:00) ( [facility] 03/21/2021 16:15) Final results Test Result Flag [...] 0.0) 3 Clinical Report - Physicians/Mid Levels [facility] Emergency Department [address] [place] [address] Phone #: ext- [phone] 03/21/2021 14:52 Patient: [...] Male GFR Interprentation 20-49 yrs >60 mL/min Fjgrsc35-12 yrs >56 mL/min Normal 60-69 yrs >49 mL/min Normal 70-79yrs>42 mL/min Normal 80 and above >35 mL/min Normal Female GFRInterpretation 20-39 yrs >60 mL/min Normal 40-49 yrs >58 mL/minNormal 50-59 yrs >51 mL/min Normal 60-69 yrs >45 mL/min Cjlbwp91-88 yrs >39 mL/min Normal 80 and above >32 mL/min NormalType Rh: (MILEY: 03/21/2021 16:00) ( [facility] 16:39) Final results Test Result Flag Units (Reference) ABO GROUP O RH TYPE POSITIVE { ABO/RH REENTER O POSITIVEUrinalysis: (MILEY: 03/21/2021 15:30) ( [facility] [place] 03/21/2021 15:53) Final results Test Result Flag Units (Reference) URINALYSIS URINALYSIS SOURCE R COLOR yellow (NORMAL: Yello 4 Clinical Report - Physicians/Mid Levels [facility] Emergency Department [address] [place] [address] Phone #: ext- [phone] 03/21/2021 14:52 Patient: [...] Weeks post LMP 5.4-708 mU/mL 3-4 Weeks 217-19862 mU/mL 5-6 Weeks 4059-683684 mU/mL 7-8 Weeks 41400-016474 mU/mL 9-10 Weeks 81306-00061 mU/mL 12-14 Weeks 64126-46993 mU/mL 15-16 Weeks 8240-66354 mU/mL 17-18 Weeks US OB 1ST TRI [...] . 5 Clinical Report - Physicians/Mid Levels [facility] Emergency Department [address] [place] [address] Phone #: ext- [phone] 03/21/2021 14:52 [id number] Sex[facility] F : 1995 Age: 25y Acute [...] Dispense 21 capsule. Refills: 0. Substitution permitted. [id number] [address] [place], [place] [id number]. FaxNumber: [phone]. ondansetron 8 mg disintegrating tablet Take 1 tablet three times a day for 10 days -- Dispense 30 tablet. Refills: 0. Substitution permitted. [id number] [address] [place], [place] [id number]. . Follow-up: Follow up with your doctor [employer] in three days. Reason for referral: evaluation, treatment and repeat Beta Hcg and serial US. Summary of care provided to patient. Understanding of the discharge instructions verbalized by patient.(Electronically signed by IGNACIA Saunders 03/21/2021 19:47) Name Value Range Interpretation Code Description Data [facility](s) Supporting Document(s) ID Date Data Source [id number] 03/21/2021 02:53:00 PM EDT [facility] Addenda for SAHARAEMILIAALONDRABRITTNY H VisitID: [id number] Date: 13:39Pt urine growing E. COli [id number], d/c on cephalexin 500mg PO TIDx7 days which is sensitive, shownto Eladia BETH at 1338, no further treatment required.(Electronically signed by Chandrika Real R.N. - 03/26/2021 13:39) Name Value Range Interpretation Code Description Data [facility] Supporting Document[facility]s) ID Date Data Source [id number] 03/21/2021 08:37:00 PM EDT [facility] [address] [place] [address] PHONE: [phone] FAX: [phone] Name .................. : MARGUERITE Domingo Acct Number.................. : [id number] ROOM. ................. : TR-04 MR Number ................... : [id number] Stay type ............. : E/R Discharge Date......... ... : 03/21/21 Admit Date ......... : 03/21/21 Admit Phys .................... : COONEYNORM Date of ....... : 1995 Family Phys ................... : UNKNOWN CO Phone .................. : [phone] Age ................................ : 25 Film# .................. .:[id number] Sex ................................. : F Unsigned transcriptions are preliminary reports and do not represent a medical [place] [id number] COMPLETE:03/21/21 16:12 [facility] [id number] Reason for Exam: abd pain and vaginal bleeding ULTRASOUND PELVIS INDICATION: Abdominal pain and vaginal bleeding. COMPARISON: None Preliminary report for this exam was provided by [facility] . TECHNIQUE: Ultrasound of the pelvis is [...] ectopic. If not Page 1 of 2 [facility] [address] [place] [address] PHONE: [phone] FAX: [phone] Name .................. : MARGUERITE Domingo Acct Number.................. : [id number] ROOM. ................. : TR-04 MR Number ................... : [id number] Stay type ............. : E/R Discharge Date......... ... : 03/21/21 Admit Date ......... : 03/21/21 Admit Phys .................... : COONEYNORM Date of ....... : 1995 Family Phys ................... : UNKNOWN CO Phone .................. : [phone] Age ................................ : 25 Film# .................. .:[id number] Sex ................................. : F Unsigned transcriptions are preliminary reports and do not represent a medical or [place] [id number] COMPLETE: 11/05 16:12 GSP 13551 Reason for Exam: abd pain and vaginal bleeding depending on phase of menstrual cycle this degree of endometrial thickening can be within normal range. Electronically Reviewed and Signed By Sriram Liu MD , 03/21/21 20:37, MARIA FERNANDA Transcribe Initials: DZ , Transcribe Date: 03/21/21 19:06, Dictation Date: Copy for: EMERGENCY DEPT via modem Copy for: 710 MED REC DISCHARGED Page 2 of 2 Name Value Range Interpretation Code Description Data [facility] rce(s) Supporting Document(s) ID Date Data Source [id number] 03/21/2021 04:48:00 PM EDT [facility] Name Value Range Interpretation Code Description Data Herminia rce(s) Supporting Document(s) Choriogonadotropin.intact [Units/volume] in Serum or Plasma 117.5 mIU /mL [facility] Interpr etation: Less than 5 mU/mL: Negative 6-10 mU/mL: Borderline (suggest repeat in 48 hours) >10: Positive Approx HCG range (mU/mL) Weeks post LMP 5.4-708 mU/mL 3-4 Weeks 217-10680 mU/mL 5-6 Weeks 4059-262510 mU/mL 7-8 Weeks 02680-424460 mU/mL 9-10 Weeks 59206-34514 mU/mL 12-14 Weeks 77792-36368 mU/mL 15-16 Weeks 8240- 02913 mU/mL 17-18 Weeks ID Date Data Source [id number] 03/21/2021 04:40:00 PM EDT [facility] Name Value Range Interpretation Code Description Data Herminia rce(s) Supporting Document(s) COMPREHENSIVE METABOLIC PANEL [facility] COMPREHENSIVE METABOLIC PANEL Sodium [Moles/volume] in Serum or Plasma 139 mEq/L 134 - 153 [facility] Potassium [Moles/volume] in Serum or Plasma 4.1 mEq/L 3.6 - 5.0 [facility] Chloride [Moles/volume] in Serum or Plasma 104 mEq/L 98 - 107 [facility] Carbon dioxide, total [Moles/volume] in Serum or Plasma 26 MEQ/L 22 - 30 [facility] Glucose [Mass/volume] in Serum or Plasma 88 MG/DL 70 - 99 [facility] BUN 11 MG/DL 7 - 21 [facility] Creatinine [Mass/volume] in Serum or Plasma 0.6 MG/DL 0.7 - 1.5 L [facility] BUN/CREAT 18 8 - 27 [facility] Protein [Mass/volume] in Serum or Plasma 6.9 G/DL 6.3 - 8.2 [facility] Albumin [Mass/volume] in Serum or Plasma 4.4 G/DL 3.9 - 5.0 [facility] Globulin [Mass/volume] in Serum by calculation 2.5 GM/DL 2.4 - 3.2 [facility] A/G RATIO 1.8 0.8 - 2.0 [facility] Calcium [Mass/volume] in Serum or Plasma 9.1 MG/DL 8.4 - 10.2 [facility] Bilirubin.total [Mass/volume] in Serum or Plasma 0.8 MG/DL 0.2 - 1.3 [facility] Alkaline phosphatase [Enzymatic activity/volume] in Serum or Plasma 50 U/L 38 - 126 [facility] Aspartate aminotransferase [Enzymatic activity/volume] in Serum or Plasma 17 U/L 5 - 40 [facility] Alanine aminotransferase [Enzymatic activity/volume] in Seru m or Plasma 9 U/L 7 - 56 [facility] Anion gap 3 in Serum or Plasma 9.0 mmol/L 8.0 - 16.0 [facility] AGE 25 yrs [facility] NON-AA GFR >60 mL/min [facility] ital AFR AMER GFR >60 mL/min [facility] Ho spital Male GFR In terprentation 20-49 [...] >32 mL/min Normal ID Date Data Source [id number] 03/21/2021 04:39:00 PM EDT [facility] Name Value Range Interpretation Code Description Data Herminia rce(s) Supporting Document(s) ABO group [Type] in Blood O [facility] Rh [Type] in Blood POSITIVE [facility] { ABO/RH REENTER O POSITIVE ID Date Data Source [id number] 03/21/2021 04:15:00 PM EDT [facility] Name Value Range Interpretation Code Description Data Herminia rce(s) Supporting Document(s) CBC W/AUTOMATED DIFF [facility] COMPLETE BLOOD COUNT Leukocytes [#/volume] in Blood by Automated count 6.3 10^3/uL 4.2 - 1 1.0 [facility] Erythrocytes [#/volume] in Blood by Automated count 4.49 10^6/uL 4. 20 - 5.40 [facility] Hemoglobin [Mass/volume] in Blood 13.1 g/dL 12.0 - 16.0 [facility] Hematocrit [Volume Fraction] of Blood by Automated count 38.2 % 3 7.0 - 47.0 [facility] Erythrocyte mean corpuscular volume [Entitic volume] by Auto mated count 85.1 fL 81.0 - 101 [facility] Erythrocyte mean corpuscular hemoglobin [Entitic mass] by Automated count 29.2 pg 27.0 - 34.0 [facility] Erythrocyte mean corpuscular hemoglobin concentration [Mass/volume] by Automated count 34.3 g/dL 31.0 - 36.0 [facility] Erythrocyte distribution width [Ratio] by Automated count 12.7 % 11.5 - 14.5 [facility] Platelets [#/volume] in Blood by Automated count 250 10^3/uL 150 - 45 0 [facility] Platelet mean volume [Entitic volume] in Blood by Automated count 9.9 fL 7.4 - 10.4 [facility] Neutrophils/100 leukocytes in Blood by Automated count 56.5 % 37. 0 - 80.0 [facility] Lymphocytes/100 leukocytes in Blood by Manual count 34.1 % 25.0 - 40.0 [facility] Monocytes/100 leukocytes in Blood by Automated count 6.5 % 3.0 - 8.0 [facility] Eosinophils/100 leukocytes in Blood by Automated count 2.1 % 0.0 - 7.0 [facility] Basophils/100 leukocytes in Blood by Automated count 0.5 % 0.0 - 2.5 [facility] %IG 0.3 % 0.0 - 0.0 H [facility] al %NRBC 0.0 % 0.0 - 0.0 [facility] Neut[facility]ils [#/volume] in Blood by Automated count 3.58 10^3/uL 2.00 - 6.90 [facility] Lymphocytes [#/volume] in Blood by Automated count 2.16 10^3/uL 0.60 - 3.40 [facility] Monocytes [#/volume] in Blood by Automated count 0.41 10^3/uL 0.00 - 0.90 [facility] Eosinophils [#/volume] in Blood by Automated count 0.13 10^3/uL 0.00 - 0.70 [facility] Basophils [#/volume] in Blood by Automated count 0.03 10^3/uL 0.00 - 0.20 [facility] #IG 0.02 10^3/uL 0.00 - 0.10 [facility] #NRBC 0.00 10^3/uL 0.00 - 0.00 [facility] MANUAL DIFF NOT INDICATED [facility] RBC MORPH NOT INDICATED [facility] spital ID Date Data Source [id number] 03/26/2021 06:46:00 AM EDT [facility] Name Value Range Interpretation Code Description Data Herminia rce(s) Supporting Document(s) CULTURE URINE [facility] spital _CULTURE URINE_$$[id number]$$059311$$579487$$956355$$273207$$140152$$392966$$080824$$172483$$ 744002$$431496$$397188$$047696$$309239$$392025$$523615$$379077$$948853$$408876$$ 542695$$452159$$867243$$677221$$983007$$489508$$375828$$091042 -- Continued on next page --Patient: MARGUERITE Domingo Order: [id number] Page 2Culture: CULTURE URINE Status: Final ==== -- Continued on next page --Patient: MARGUERITE Domingo Order: [id number] Page 2Culture: CULTURE URINE Status: Prelim =====$$[id number]$$[id number] DATE/TIME: 03/26/2021 06:06Culture: CULTURE URINE Status: FinalIsolate 1 Escherichia coli Flag: A . . . . . . .1Multi-Drug Resistant Mqcdfmif55,000-100,000 colony forming units per mLCefazolin <=4 ug/mLCefazolin with an MARTIN <=16 predicts susceptibility to the oral agentscefaclor, cefdinir, cefpodoxime, cefprozil, cefuroxime, cephalexin,and loracarbef when used for therapy of uncomplicated urinary tractinfections due to E. coli, Klebsiella pneumoniae, and Proteusmirabilis. Previous result entered on 03/25/2021 06:07 ET Gram negative rods50,000-100,000 colony forming units per mLUrine Culture,Comprehensive: O0Htguucpoffv coli Flag: APatient: MARGUERITE Domingo Order: [id number] Page 3Culture: CULTURE URINE Status: Final ====ISOLATE [...] S S . . . . . .53947-3Mzdijrcwpa R R . . . . . .267-5Imipenem S S . . . . . .279-0Levofloxacin R R . . . . . .47640-7Wnykwjuym S S . . . . . .6652-2Nitrofurantoin S S . . . . . .363- 2Piperacillin/Tazobactam S S . . . . . .412-7Tetracycline R R . . . . . .496-0Tobramycin I I . . . . . .508-2Trimethoprim/Sulfa R R . . . . . .516-5P1 Test performed by: [facility] Nataly BENITO #: [id number] [address] [place] [id number] [facility] [address]Suyxzyg Director : Prince Logan MD NPI #:Billet Cutter : 03/25/2131.XMT.SENT REF 03/26/2146.XMT.SENT REF ID Date Data Source [id number] 03/24/2021 06:21:00 AM EDT [facility] Name Value Range Interpretation Code Description Data Herminia rce(s) Supporting Document(s) Chlamydia trachomatis rRNA [Presence] in Unspecified specimen by Probe and target amplification method Negative Negative [facility] Neisseria gonorrhoeae rRNA [Presence] in Unspecified specimen by Probe and target amplification method Negative Negative [facility] ID Date Data Source [id number] 03/21/2021 03:45:00 PM EDT [facility] Name Value Range Interpretation Code Description Data Herminia rce(s) Supporting Document(s) [facility] R [facility] COL[facility] yellow NORMAL: Yellow [facility] CLARITY clear NORMAL: Clear [facility] Specific gravity of Urine by Test strip 1.015 1.001 - 1.030 [facility] pH 7 5 - 9 [facility] al Glucose [Mass/volume] in Urine by Test strip NORM NORMAL: Negat [facility] Bilirubin.total [Presence] in Urine by Test strip NEG NORMAL: Negative [facility] Ketones [Presence] in Urine by Test strip NEG NORMAL: Negative [facility] Protein [Mass/volume] in Urine by Test strip NEG NORMAL: Negat [facility] Nitrite [Presence] in Urine by Test strip NEG NORMAL: Negative [facility] BLOOD NEG NORMAL: Negative [facility] LEUK EST 100 NORMAL: Negative [facility] Urobilinogen [Mass/volume] in Urine by Test strip NOR less hugh n 1.0 mg/dL [facility] MICROSCOPIC See Below [facility] ital WBC None Seen NORMAL: NONE SEEN [facility] Erythrocytes [#/volume] in Urine by Test strip None Seen NORMAL: NON E SEEN [facility] Bacteria [Presence] in Urine sediment by Light microscopy 1+ SMALL NORMAL: NONE SEEN [facility] ID Date Data Source [id number] 09/18/2020 02:09:00 PM EST [facility] 1 OrderSheet [facility] Emergency Department [address] [place] [address] Phone #: ext- [phone] 09/18/2020 14:08 Patient: [...] rce(s) Supporting Document(s) ID Date Data Source [id number] 09/18/2020 02:09:00 PM EST [facility] 1 Medication Reconciliation Report [facility] Emergency Department [address] [place] [address] Phone #: ext- [phone] 09/18/2020 14:08 Patient: [...] Dispense 21 capsule.Refills: 0. Substitution permitted.Pharmacy - [facility][id number] - [address] [place], [place] [phone]. . -- Eber Robert P.A.-C Name Value Range Interpretation Code Description Data [facility](s) Supporting Document(s) ID Date Data Source [id number] 09/18/2020 02:09:00 PM [place] [address] Medication Administration Record [facility] Emergency Department [address] [place] [address] Phone #: ext [phone] 09/18/2020 14:08 Patient: BRITTNY EVERETT Sex: F : 1995 Age: 24yWeight: 82.5 kgHeight/Length: 73 inBMI: 24ALLERGIES: Latex, Bees, Iodinated Diagnostic Agents, Shellfish-derived ProductsDate/Time Medication Administered Medication Ordered Name Value Range Interpretation Code Description Data [facility](s) Supporting Document(s) ID Date Data Source [id number] 09/18/2020 02:09:00 PM [place] [address] General Instructions [facility] Emergency Department [address] [place] [address] Phone #: ext- [phone] 09/18/2020 14:08 Patient: BRITTNY EVERETT [facility]#: [id number] Sex: F : 1995 Age: 24y Single [...] capsule. Refills: 0. Substitution permitted. Pharmacy - [facility][id number] - [address] [place], [place] [id number]. . Follow-up: Return to the emergency department as needed. Follow up with your healthcare provider in two days if not better. Call for an appointment. Understanding of the discharge instructions verbalized by patient. ADDITIONAL INFORMATIONLaceration, All ClosuresA laceration is a cut through the skin. This will usually require stitches or satish if it's deep. Minorcuts may be treated with a surgical tape closure or skin glue. 2 General Instructions [facility] Emergency Department [address] [place] [address] Phone #: ext- [phone] 09/18/2020 14:08 Patient: BRITTNY EVERETT Sex: Saloni : 1995 Age: 24yHome care Your healthcare provider may prescribe an antibiotic. This is to help prevent infection. Follow all instructions for taking this medicine. Take the medicine every day until it's gone or you are told to stop. You should not have any left over. The healthcare provider may prescribe medicines for pain. If no pain medicines were prescribed, you can use sryi-sgh-zquduoy pain medicines. Follow instructions for taking any [...] first 24 hours. Caring for stitches or satish: Once you no longer need to keep [...] while the glue is 3 General Instructions [facility] Emergency Department [address] [place] [address] Phone #: ext- [phone] 09/18/2020 14:08 Patient: [...] or go swimming until the stitches or satish have been removed. Talk with your healthcareprovider [...] be painful when eating. You may use estcoz-yhf-xysvdmh local numbing solution for pain relief. If [...] any of these occur: 4 General Instructions [facility] Emergency Department [address] [place] [address] Phone #: ext- [phone] 09/18/2020 14:08 Patient: BRITTNY EVERETT Sex: F : 1995 Age: 24y Signs of infection, including increasing pain in the wound, increasing wound redness or swelling, or pus or bad odor coming from the wound Fever of 100.4F (38.C) or higher , or as directed by your healthcare provider Stitches or satish come apart or fall out or surgical tape falls off before 7 days and the wound appears to be reopening Wound edges reopen Wound changes colors Numbness around the wound after any numbing medicine should have worn off Decreased movement around the injured areaCall 911Call 911 if you can't control the wound bleeding with direct pressure. [phone] [employer]. [address] [place] [address]. All rights reserved. This information is not intended as asubstitute for professional medical care. Always follow your healthcare professional's instructions.Extremity Laceration: Stitches, Browning, or TapeA laceration is a cut through the skin. If it is deep, it may require stitches or satish to close so it canheal. Minor cuts [...] day or as directed. If stitches or satish were used, clean the wound daily: o After removing the bandage, wash the area with soap and water. Use a wet cotton swab to loosen and remove any blood or crust that forms. o After cleaning, keep the wound clean and dry. Talk with your healthcare provider 5 General Instructions [facility] Emergency Department [address] [place] [address] Phone #: ext- [phone] 09/18/2020 14:08 Patient: BRITTNY EVERETT Sex: F : 1995 Age: 24y before putting any antibiotic ointment on the wound. Reapply the bandage. You may remove the bandage to shower as usual after the first 24 hours, but don't soak the area in water (no swimming) until the stitches or satish are removed. If surgical tape closures were [...] the signs ofinfection listed below. Stitches and satish should be removed within 7 to14 days. [...] directed by your healthcare provider Stitches or satish come apart or fall out or surgical tape falls off before 7 days Wound edges reopen Wound changes colors Numbness occurs around the wound Decreased movement around the injured area [phone] [employer]. [address] [place] [address]. All rights reserved. This information is not intended as asubstitute for professional medical care. Always follow your healthcare professional's instructions. 6 General Instructions [facility] Emergency Department [address] [place] [address] Phone #: ext- [phone] 09/18/2020 14:08 Patient: [...] controlled by direct pressure 7 General Instructions [facility] Emergency Department [address] [place] [address] Phone #: [phone]- [phone] 09/18/2020 14:08 Patient: BRITTNY EVERETT Sex: F : 1995 Age: 24y Signs of infection, including increasing pain in the wound, increasing wound redness or swelling, or pus or bad odor coming from the wound Fever of 100.4F (38.C) or higher, or as directed by your healthcare provider Wound edges reopen Wound changes colors Numbness around the wound Decreased movement around the injured area 1335-4211 [employer] [address] [place] [address], [place] [id number]. All rights reserved. This information is not intended as asubstitute for professional medical care. Always follow your healthcare professional's instructions.Laceration, All ClosuresA laceration is a cut through the skin. This will usually require stitches or satish if it's deep. Minorcuts may be treated with a surgical tape closure or skin glue.Home care Your healthcare provider may prescribe an antibiotic. This is to help prevent infection. Follow all instructions for taking this medicine. Take the medicine every day until it's gone or you are told to stop. You should not have any left over. 8 General Instructions [facility] Emergency Department [address] [place] [address] Phone #: ext- [phone] 09/18/2020 14:08 Patient: BRITTNY EVERETT Sex: F : 1995 Age: 24y The healthcare provider may prescribe medicines for pain. If no pain medicines were prescribed, you can use ofvn-mmm-gkbmmry pain medicines. Follow instructions for taking any [...] first 24 hours. Caring for stitches or satish: Once you no longer need to keep [...] or go swimming until the stitches or satish have been removed. Talk with your healthcareprovider before applying any antibiotic ointment to the wound.Mouth woundsEat soft foods to reduce pain. If the cut is inside of your mouth, clean by rinsing after each meal and 9 General Instructions [facility] Emergency Department [address] [place] [address] Phone #: deu- [phone] 09/18/2020 14:08 [id number] Sex: F : 1995 Age: 24yat bedtime with a mixture of equal parts water and hydrogen peroxide (don't swallow!). Or you canuse a cotton swab to directly apply hydrogen peroxide onto the cut. You may also be prescribed achlorhexidine solution to rinse with. Mouth wounds can be painful when eating. You may use etsyrw-zby-utusupf local numbing solution for pain relief. If [...] directed by your healthcare provider Stitches or satish come apart or fall out or surgical tape falls off before 7 days and the wound appears to be reopening Wound edges reopen Wound changes colors Numbness around the wound after any numbing medicine should have worn off Decreased movement around the injured areaCall 911Call 911 if you can't control the wound bleeding with direct pressure. [phone] [employer]. [address] [place] [address]. All rights reserved. This information is not intended as asubstitute for professional medical care. Always follow your healthcare professional's instructions.Extremity Laceration: Stitches, Browning, or Tape 10 General Instructions [facility] Emergency Department [address] [place] [address] Phone #: ext- [phone] 09/18/2020 14:08 Patient: BRITTNY EVERETT Sex: F : 1995 Age: 24yA laceration is a cut through the skin. If it is deep, it may require stitches or satish to close so it canheal. Minor cuts [...] day or as directed. If stitches or satish were used, clean the wound daily: o [...] water (no swimming) until the stitches or satish are removed. If surgical tape closures were [...] the signs ofinfection listed below. Stitches and satish should be removed within 7 to14 days. If surgical tapeclosures were used, you may remove them after 10 days if they have not fallen off by then. 11 General Instructions [facility] Emergency Department [address] [place] [address] Phone #: ext- [phone] 09/18/2020 14:08 Patient: [...] directed by your healthcare provider Stitches or satish come apart or fall out or surgical tape falls off before 7 days Wound edges reopen Wound changes colors Numbness occurs around the wound Decreased movement around the injured area [id number] [employer]. [address] [place] [address]. All rights reserved. This information is not [...] rce(s) Supporting Document(s) ID Date Data Source [id number] 09/18/2020 02:09:00 PM EST [facility] 1 Clinical Report - Nurses [facility] Emergency Department [address] [place] [address] Phone #: ext- [phone] 09/18/2020 14:08 Patient: BRITTNY EVERETT Sex: F : 1995 Age: 24yTRIAGEArrived by private vehicle. Historian: patient. Unaccompanied.Triage time: late entry - 14:08 09/18/2020. Acuity: LEVEL 4.Chief Complaint: LACERATION.Alert. No acute distress.Location of injuries: tip of left index finger. Occurred at work. Occurred late entry - 14:00 09/18/2020. 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 SEPSIS SCREEN NEGATIVE. [...] Real R.N. 2 Clinical Report - Nurses [facility] Emergency Department [address] [place] [address] Phone #: ext- [phone] 09/18/2020 14:08 [id number] Sex: F : 1995 Age: 24y ADDITIONAL [...] 2. Bed 3 Clinical Report - Nurses [facility] Emergency Department [address] [place] [address] Phone #: ext- [phone] 09/18/2020 14:08 Patient: BRITTNY EVERETT Sex: F [...] F. Pain level now: 09/24. --15:56 09/18/20 Critical access hospital Tech, Cory, Tech1 Departure time: late entry - 16:13 09/18/2020. Condition at departure: stable. No learning barriers present. Discharge instructions provided and reviewed with the patient. Reviewed warnings (please see paper copy). Reviewed medication(s) side effects, precautions, dosing and course information. Prescription(s) sent electronically to pharmacy (cephalexin). Reviewed wound care instructions. Activity restrictions reviewed. Work note given. Patient verbalized understanding. Written instructions provided in Yemeni. The patient was discharged by the physician administrative assistant coordinator. She was discharged home and unaccompanied at time of discharge. She left ambulatory and via private vehicle. Patient driving. --16:17 09/18/20 Chandrika Real R.N.Locked/Released at 09/18/2020 16:18 by Chandrika Real R.N. 4 Clinical Report - Nurses [facility] Emergency Department [address] [place] [address] Phone #: vef- [phone] 09/18/2020 14:08 Patient: BRITTNY EVERETT Sex: F : 1995 Age: 24y Name Value Range Interpretation Code Description Data Herminia rce(s) Supporting Document(s) ID Date Data Source [id number] 09/18/2020 02:09:00 PM [facility] 1 Clinical Report - Physicians/Mid Levels [facility] Emergency Department [address] [place] [address] Phone #: ext- [phone] 09/18/2020 14:08 Patient: BRITTNY EVERETT Sex: F : 1995 Age: 24y Time Seen: 14:41 [...] injury. 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 Allergies: 2 Clinical Report - Physicians/[facility] Emergency Department [address] [place] [address] Phone #: ext- [phone] 09/18/2020 14:08 Patient: BRITTNY EVERETT Sex: F [...] looking. 3 Clinical Report - Physicians/Mid Levels [facility] Emergency Department [address] [place] [address] Phone #: ext- [phone] 09/18/2020 14:08 Patient: [...] or 4 Clinical Report - Physicians/Mid Levels [facility] Emergency Department [address] [place] [address] Phone #: ext- [phone] 09/18/2020 14:08 Patient: BRITTNY EVERETT [facility]#: [id number] Sex: F : 1995 Age: 24y increased [...] capsule. Refills: 0. Substitution permitted. Pharmacy - [id number] - [address] ; [place], [place] [id number]. . Follow- up: Return to the emergency [...] Current Smoker completed Curre nt Smoker eCW1 (Replaced By [facility]) Smoking 07/22/2020 12:00:00 AM EST Current Smoker completed Curre nt Smoker eCW1 (Replaced By [facility]) Smoking 07/22/2020 12:00:00 AM EST Current Smoker completed Curre nt Smoker eCW1 (Replaced By [facility]) Smoking 07/22/2020 12:00:00 AM EST Current Smoker completed Curre nt Smoker eCW1 (Replaced By [facility]) Vital Signs ID Date Data Source UNK Name Value Range Interpretation Code Description Data Source(s) Diastolic blood pressure 58 mm[Hg] 58 mm[Hg] [facility] ([facility]) Respiratory rate 16 /min 16 /min [facility] ( [facility]) Oxygen saturation in Arterial blood by Pulse oximetry 99 % 99 % [facility] ([facility]) Body weight 185.50 [lb_av] 185.50 [lb_av] MEDEN T ([facility]) Body weight 84.143 kg 84.[address] [facility] ([facility]) Body height 73 [in_i] 73 [in_i] [facility] ([facility]) 6'1" Body mass index (BMI) [Ratio] 24.5 kg/m2 24.5 k g/m2 [facility] ([facility]) Body surface area Derived from formula 2.08 m2 2.08 m2 [facility] ([facility]) Systolic blood pressure 120 mm[Hg] 120 mm[Hg] M EDENT ([facility]) Heart rate 94 /min 94 /min [facility] ([facility]) Body weight 174 [lb_av] 174 [lb_av] eCW1 ([facility]) Body height 73 [in_i] 73 [in_i] eCW1 ([facility]) Body mass index (BMI) [Ratio] 22.95 kg/m2 22.95 kg/m2 eCW1 (Replaced By [facility]) Heart rate 81 /min 81 /min eCW1 ([facility]) Respiratory rate 17 /min 17 /min eCW1 ([facility]) Body temperature 98.1 [degF] 98.1 [degF] eCW1 ( Replaced By [facility]) Systolic blood pressure 120 mm[Hg] 120 mm[Hg] e CW1 (Replaced By [facility]) Diastolic blood pressure 70 mm[Hg] 70 mm[Hg] eCW1 (Replaced By [facility]) Patient Treatment Plan of Care Planned Activity Planned Date Details Description Data Source (s) Omeprazole 40 MG Delayed Release Oral Capsule 07/04/2020 12:00:00 A M EST eCW1 (Replaced By [facility]) meloxicam 7.5 MG Oral Tablet 07/04/2020 12:00:00 AM EST eCW1 (Replaced By [facility]) topiramate 50 MG Oral Tablet 07/04/2020 12:00:00 AM EST eCW1 (Replaced By [facility]) Omeprazole 40 MG Delayed Release Oral Capsule 07/04/2020 12:00:00 A M EST eCW1 (Replaced By [facility]) meloxicam 7.5 MG Oral Tablet 07/04/2020 12:00:00 AM EST eCW1 (Replaced By [facility]) topiramate 50 MG Oral Tablet 07/04/2020 12:00:00 AM EST eCW1 (Replaced By [facility]) Omeprazole 40 MG Delayed Release Oral Capsule 07/04/2020 12:00:00 A M EST eCW1 (Replaced By [facility]) meloxicam 7.5 MG Oral Tablet 07/04/2020 12:00:00 AM EST eCW1 (Replaced By [facility]) topiramate 50 MG Oral Tablet 07/04/2020 12:00:00 AM EST eCW1 (Replaced By [facility])
[2021-05-11 12:33] VITALS: BP 114/57
== END 2021-05-11 12:35 | disposition home or self-care (01) ==
LOC: M ED 08:41
DX: O20.8 Other hemorrhage in early pregnancy (principal); Z3A.11 11 weeks gestation of pregnancy; Z88.8 Allergy status to other drugs, medicaments and biological substances; Z91.030 Bee allergy status; Z91.041 Radiographic dye allergy status; Z91.013 Allergy to seafood; Z79.899 Other long term (current) drug therapy

== ENCOUNTER 2021-06-05 09:02 | Emergency (ER) | payer MEDICAID, SELFPAY ==
[~2021-06-05] VITALS: Ht 185.4 cm; Wt 85.0 kg
--- OUTSIDE RECORDS SUMMARY | 2021-06-05 09:14 | CCD ---
Author Author [facility] Organization [facility] Address Unknown Phone Unavailable Care Team Providers Care Fire Management Officer Name Role Phone Nwogu, U Brien DO [...] is protected by Article 27-F of the [facility] Public Health law. If you continue you may have access to information: Regarding HIV / AIDS; Provided by facilities licensed or operated by the [facility] Office of Mental Health; or Provided by the [facility] Office for People With Developmental Disabilities. If such information is present, then the following [facility] mandated warning applies: This information has been [...] law may result in a fine or longterm sentence or both. A general authorization for the release of medical or other information is NOT sufficient authorization for further disc losure. Family History Family Member Name Family Member Gender Family Member Status Date o f Status Description Data Source(s) Unknown Unknown Problem [facility] ([facility], ) Encounters Encounter Providers Location Date Indications Data Source(s ) Outpatient Attender: Brien Smith DOConsultant: DILAN LLOYD KNOWN 05/08/2021 07:35:00 AM EDT - 05/08/2021 08:35:00 AM EDT [facility] Outpatient Attender: Brien Smith DO [facility] 04/18 02:15:00 PM EDT [facility] ([facility] Outpatient Attender: Brien Smith DOConsultant: DILAN LLOYD KNOWN 05/06/2021 02:12:00 PM EDT - 05/06/2021 02:12:00 PM EDT [facility] Emergency Attender: TY TORRES MD 2020 02:53:00 PM EDT - 03/21/2021 05:12:00 PM EDT [facility] Patient discharged. [place] [address] [facility] [address] 10/24/2020 12:00:00 AM EDT eCW1 ([facility]) Emergency Attender: TY TORRES MD 2020 02:09:00 PM EST - 09/18/2020 04:13:00 PM EST [facility] Patient discharged. [place] [address] [facility] [facility] [address] 08/12/2020 12:00:00 AM EST eCW1 ([facility]) [place] [address] [facility] [facility] [address] 07/22/2020 12:00:00 AM EST eCW1 ([facility]) Outpatient [address] [facility] [facility] [address] 07/04/2020 12:00:00 AM EST eCW1 ([facility]) Immunizations Vaccine Date Status Description Data Source(s) COVID-19 VACCINE Moderna 11/28/2020 12:00:00 AM EDT completed [facility]IS Vaccine Series Complete: NOThis Data was Submitted to [facility] [employer]. Medications Medication Brand Name Start Date Product [...] type / Coverage type Policy ID Covered alliance party ID Covered alliance party's relationship to forbes Policy Forbes Plan Information [facility] ACTIVE DUTY [id number] [facility] (2018) Health Maintenance Organization (HMO) [id number] Self [id number] U [id number] Self [id number] [facility] ACT[facility] [id number] SP [id number] [facility] HUMA[facility] - O/P [id number] 18 [id number] [facility] MELVIN [id number] SP [id number] [facility] [id number] S [id number] ACTIVE DUTY [id number] SP [id number] ANSI-Not a Secondary Insurance [id number] SELF PAY ONLY [id number] SP [id number] [facility] CELIA O [id number] O [id number] [place] CCN OPTUM - FAC [id number] 18 [id number] [facility] HUMAN [id number] SP [id number] Problems, Conditions, and Diagnoses Code Display Name Description Problem Type Effective Dates Data Source(s) N912 Amenorrhea, unspecified Amenorrhea, unspecified Diagno sis 05/06/2021 02:12:00 PM EDT [facility] Z3A01 Less than 8 weeks gestation of Less than 8 weeks gestation of Diagnosis 03/21/2021 02:53:00 PM EDT [facility] O2311 Infections of bladder in , firs t trimester Infections of bladder in , first trimester Diagnosis 03/21/2021 02:53:00 PM EDT [facility] O209 Hemorrhage in early , unspecifi ed Hemorrhage in early , unspecified Diagnosis 03/21/2021 02:53:00 PM EDT [facility] Y9289 Other specified places as the place of o ccurrence of the external cause Other specified places as the place of occurrence of the external cause Diagnosis 09/18/2020 02:09:[address] [facility] [id number] Contact with unspecified sharp object(s) , initial encounter Contact with unspecified sharp object(s), initial encounter Diagnosis 021 02:09:[address] [facility] W37736 Latex allergy status Latex allergy status Diagnosis 09/18/2020 02:09:[address] [facility] C33032 Personal history of nicotine dependence Personal history of nicotine dependence Diagnosis 09/18/2020 02:09:[address] [facility] [id number] Laceration without foreign b maggie of left index finger without damage to nail, initial encounter Laceration without foreign body of left index finger without damage to nail, initial encounter Diagnosis 09/18/2020 02:09:[address] [facility] [id number] Unspecified injury of left wrist, hand a nd finger(s), initial encounter Unspecified injury of left wrist, hand and finger(s), initial encounter Diagnosis 09/18/2020 02:09:[address] [facility] G43.009 [id number] Migraine without aur a and without status migrainosus, not intractable Problem 07/04/2020 12:00:00 AM EST [facility] K21.9 [id number] Gastroesophageal ref lux disease, unspecified whether esophagitis present Problem 07/04/2020 12:00:00 AM EST [facility] Surgeries/Procedures Procedure Description Date Indications Data Source(s) OFFICE OUTPATIENT NEW 30 MINUTES 05/06/2021 12:00:00 A M [facility] Results ID Date Data Source [id number] 05/08/2021 07:15:00 AM EDT [facility] ([facility]) Name Value Range Interpretation Code Description Data Herminia rce(s) Supporting Document(s) Choriogonadotropin.beta subunit [Moles/volume] in Seru m or Plasma 64049.0 mIU/mL [facility] ([facility]) if possative do QUANT ID Date Data Source [id number] 05/08/2021 07:15:00 AM EDT [facility] ([facility]) Name Value Range Interpretation Code Description Data Herminia rce(s) Supporting Document(s) HCG Serum QL [facility] test result [facility] ([facility]) if possative do QUANT HCG Serum Qual Laboratory test result [facility] ([facility]) if possative do QUANT ID Date Data Source [id number] 05/08/2021 10:43:00 AM EDT [facility] Name Value Range Interpretation Code Description Data Herminia rce(s) Supporting Document(s) Choriogonadotropin.intact [Units/volume] in Serum or Plasma 68123.0 mIU/mL [facility] Interpr etation: Less than 5 mU/mL: Negative 6-10 mU/mL: Borderline (suggest repeat in 48 hours) >10: Positive Approx HCG range (mU/mL) Weeks post LMP 5.4-708 mU/mL 3-4 Weeks 217-39619 mU/mL 5-6 Weeks 4059-948901 mU/mL 7-8 Weeks 99155-314112 mU/mL 9-10 Weeks 30172-42857 mU/mL 12-14 Weeks 39950-11679 mU/mL 15-16 Weeks 8240- 50362 mU/mL 17-18 Weeks ID Date Data Source [id number] 05/08/2021 08:11:00 AM EDT [facility] Name Value Range Interpretation Code Description Data Herminia rce(s) Supporting Document(s) HCG SERUM QUAL POSITIVE NORMAL: NEGATIVE [facility] HCG SERUM QL REENTER POSITIVE NORMAL: NEGATIVE [facility] { KIT LOT # [id number] ){ KIT EXP DATE 08/17/22 ){ PROCEDURAL CONTROL VALID ) ID Date Data Source [id number] 05/06/2021 03:52:00 PM EDT [facility] ([facility]) Name Value Range Interpretation Code Description Data Herminia rce(s) Supporting Document(s) Choriogonadotropin.beta subunit [Moles/volume] in Seru m or Plasma 62432.0 mIU/mL [facility] BETA HCG-April~BETA HCG-APRIL 18~.~N91.2 ID Date Data Source [id number] 05/06/2021 08:47:00 PM EDT [facility] Name Value Range Interpretation Code Description Data Herminia rce(s) Supporting Document(s) Choriogonadotropin.intact [Units/volume] in Serum or Plasma 34983.0 mIU/mL [facility] Interpr etation: Less than 5 mU/mL: Negative 6-10 mU/mL: Borderline (suggest repeat in 48 hours) >10: Positive Approx HCG range (mU/mL) Weeks post LMP 5.4-708 mU/mL 3-4 Weeks 217-40407 mU/mL 5-6 Weeks 4059-922825 mU/mL 7-8 Weeks 97560-026650 mU/mL 9-10 Weeks 88078-26158 mU/mL 12-14 Weeks 52312-72786 mU/mL 15-16 Weeks 8240- 03596 mU/mL 17-18 Weeks ID Date Data Source [id number] 03/21/2021 02:53:00 PM EDT [facility] 1 OrderSheet [facility] Emergency Department [address] [place] [address] Phone #: ext- [phone] 03/21/2021 14:52 Patient: [...] -- 15:21 03/21/2021 Christiano Rodarte PAChlamydia/GC STAT 15:21 03/21/2021 15:26 Yola Resendiz R.N.; Reason for ordering with alerts: Clinical consideration given -- 15:21 03/21/2021 Christiano BETH NOTES: urineCMP STAT 15:21 03/21/2021 16:09 Yola Resendiz R.N.; Reason for ordering with alerts: Clinical consideration given -- 15:21 03/21/2021 Christiano Rodarte PACulture, Urine STAT 15:21 03/21/2021 15:26 Yola Resendiz(Urine, Clean Christiano Gutierrez) IGNACIA; Reason for ordering with alerts: Clinical consideration given -- 15:21 03/21/2021 Christiano Rodarte PAType Rh STAT 15:03/21/2021 16:09 Yola Resendiz R.N.; Reason for ordering with alerts: Clinical consideration given -- 15:21 03/21/2021 Christiano Rodarte PAUrinalysis (Clean STAT 15:21 03/21/2021 15:26 Tiffanie Resendiz) Christiano BETH; Reason for ordering with alerts: Clinical consideration given -- 15:21 03/21/2021 Christiano BETH 2 OrderSheet [facility] Emergency Department [address] [place] [address] Phone #: ext- [phone] 03/21/2021 14:52 Patient: BRITTNY EVERETT Sex: F : 1995 Age: 25yHCG Serum Quant STAT 15:21 03/21/2021 16:09 Yola Resendiz R.N.; Reason for ordering with alerts: Clinical consideration given -- 15:21 03/21/2021 Christiano Rodarte PADIAGNOSTIC STUDY ORDERSOrder Description Priority Entered Acknowledged InitialedUS OB 1ST TRI W STAT 15:21 021 15:27 Kalyan Resendiz IF NEEDED Christiano Rodarte R.N.(Oxygen?(No)) IGNACIA;(IV?(No)) Reason for ordering with alerts: Clinical consideration given -- 15:03/21/2021 Christiano BETH Reason for Study: abd pain and vag bleedingMEDICATION/IV/DRIP/FLUID ORDERSOrder Description Priority Entered Acknowledged InitialedTylenol PO 1000 15:21 03/21/2021 15:26 Castro Resendiz R.N.; Reason for ordering with alerts: Clinical consideration given -- 15:21 03/21/2021 Christiano Rodarte PAZofran ODT PO 8 15:21 [...] rce(s) Supporting Document(s) ID Date Data Source [id number] 03/21/2021 02:53:00 PM EDT [facility] 1 Medication Reconciliation Report [facility] Emergency Department [address] [place] [address] Phone #: ext- [phone] 03/21/2021 14:52 Patient: [id number] Sex: F : 1995 Age: 25yWeight: 86.6 [...] Dispense 21 capsule.Refills: 0. Substitution permitted.Ph[facility] - [id number] [phone]. .ondansetron 8 mg disintegrating tablet Take 1 tablet three times a day for 10 days -- Dispense 30tablet. Refills: 0. Substitution permitted.Ph[id number] [phone]. . -- IGNACIA Saunders Name Value Range Interpretation Code Description Data Herminia rce(s) Supporting Document(s) ID Date Data Source [id number] 03/21/2021 02:53:00 PM EDT [facility] 1 Medication Administration Record [facility] Emergency Department [address] [place] [address] Phone #: ext- [phone] 03/21/2021 14:52 Patient: BRITTNY EVERETT Sex: F : 1995 Age: 25yWeight: 86.6 kgHeight/Length: 73 inBMI: 25.2ALLERGIES: Iodine Date/Time Medication Administered Medication OrderedGiven TYLENOL [PO] (APAP) Tylenol PO 1000 mg15:03/21/2021 Dose: 1000 mg Tablets Yola Blair R.N.Given ZOFRAN ODT [PO] (ONDANSETRON Zofran ODT PO 8 mg15:03/21/2021 HCL)Yola Resendiz R.N. Dose: 8 mg Oral Disintegrating Tablets PO Name Value Range Interpretation Code Description Data Herminia rce(s) Supporting Document(s) ID Date Data Source [id number] 03/21/2021 02:53:00 PM EDT [facility] 1 General Instructions [facility] Emergency Department [address] [place] [address] Phone #: ext- [phone] 03/21/2021 14:52 Patient: [...] Dispense 21 capsule.Refills: 0. Substitution permitted.Pharmacy - [facility] #[id number] - [address], [place] [phone]. .ondansetron 8 mg disintegrating tablet Take 1 tablet three times a day for 10 days -- Dispense 30tablet. Refills: 0. Substitution permitted.Pharmacy - [facility] #[id number] - [address], [place] [phone]. .Follow-up:Follow up with your doctor TUCKPOINTER CLEANER CAULKER in three d ays. Reason for referral: evaluation, treatment and repeatBeta Hcg and serial US. Summary of care provided to patient.Understanding of the discharge instructions verbalized by patient. ADDITIONAL INFORMATIONPregnancy 2 General Instructions [facility] Emergency Department [address] [place] [address] Phone #: ext- [phone] 03/21/2021 14:52 Patient: [...] care for a healthy 3 General Instructions [facility] Emergency Department [address] [place] [address] Phone #: ext- [phone] 03/21/2021 14:52 Patient: [facility]ITT[facility]ETT [id number] Sex: F : 1995 Age: 25yHere are [...] can seeyo ur family provider, a specialist (territory supervisor), a or manager, or a primary care clinic.When to seek medical adviceCall your healthcare provider right away if any of these occur: Vaginal bleeding Pain in your belly (abdomen) or back that is moderate or severe 4 General Instructions [facility] Emergency Department [address] [place] [address] Phone #: ext- [phone] 03/21/2021 14:52 Patient: BRITTNY EVERETT Sex: F : 1995 Age: 25y Lots of vomiting, or you can't keep any fluids down for 6 hours Burning feeling when you urinate Headache, dizziness, or rapid weight gain Fever Vision changes or blurred vision [employer]. [address] [place] [address]. All rights reserved. This information is not [...] spreads to the kidney. 5 General Instructions [facility] Emergency Department [address] [place] [address] Phone #: ext- [phone] 03/21/2021 14:52 Patient: [...] to back. Bowel incontinence 6 General Instructions [facility] Emergency Department [address] [place] [address] Phone #: ext- [phone] 03/21/2021 14:52 Patient: BRITTNY EVERETT Sex: F [...] for a long time. 7 General Instructions [facility] Emergency Department [address] [place] [address] Phone #: ext- [phone] 03/21/2021 14:52 Patient: BRITTNY [facility]ETT [facility] [id number] Sex: F : 1995 Age: 25y Wear [...] if the results will affect your treatment.Call [phone] [phone] if any of the following occur: Trouble [...] down Weakness or dizziness 8 General Instructions [facility] Emergency Department [address] [place] [address] Phone #: ext- [phone] 03/21/2021 14:52 Patient: BRITTNY EVERETT Sex: F : 1995 Age: 25y Vaginal discharge Pain, redness, or swelling in the outer vaginal area (labia) 5981-67[address] [employer] [place] [address]. All rights reserved. This information is not intended as asubstitute for professional medical care. Always follow your healthcare professional's instructions. You have been given the following additional information: , New Dx Bladder Infection, Female (Adult)(Electronically signed by IGNACIA Saunders 03/21/2021 19:47) Name Value Range Interpretation Code Description Data Herminia rce(s) Supporting Document(s) ID Date Data Source [id number] 03/21/2021 02:53:00 PM EDT [facility] 1 Clinical Report - Nurses [facility] Emergency Department [address] [place] [address] Phone #: cuf- [phone] 03/21/2021 14:52 Patient: BRITTNY EVERETT Sex: F [...] yet, and her blood type is O+.).Treatment TWINE WINDER:None.SEPSIS SCREEN: SIRS SCREEN NEGATIVE. SEPSIS SCREEN NEGATIVE. [...] 03/21/21 Lamar Valencia R.N.AllergiesIodine. --15:01 03/21/21 Lamar Valnecia R.N.PROBLEMS:Anemia.Gastroesophageal Reflux Disease.Depression.Anxiety Reaction.Crohn's Disease.Polycystic Kidney. --15:02 03/21/21 Lamar Valencia R.N. 2 Clinical Report - Nurses [facility] Emergency Department [address] [place] [address] Phone #: ext- [phone] 03/21/2021 14:52 Patient: BRITTNY EVERETT [facility]#: [id number] Sex: F : 1995 Age: 25y ADDITIONAL [...] Resendiz R.N. 3 Clinical Report - Nurses [facility] Emergency Department [address] [place] [address] Phone #: ext- [phone] 03/21/2021 14:52 Patient: BRITTNY EVERETT Sex: F : 1995 Age: 25yNURSING PROGRESS NOTESPatient gowned. Patient identifiers checked. Call light placed in reach. Patient ready for evaluation- EDphysician notified. --15:03 03/21/21 Lamar Valencia R.N. Side rails up x 2. Bed placed in lowest position. Brakes of bed on. --15:04 03/21/21 Yola Resendiz R.N. 15:26 03/21/2021 Tylenol (APAP) PO Tablets 1000 mg given. Allergies verified and confirmed 5 rights. Information reviewed with patient including reason for taking this medication, signs of allergic reaction and precautions. Verbalizes understanding. --15:26 03/21/21 Yola Resendiz R.N. 15:26 03/21/2021 Zofran ODT [...] Resendiz R.N. Patient transported to sonogram with critical care technician. --15:03/21/21 Yola Resendiz R.N. Patient returned from sonogram by wheelchair with critical care technician. --16:00 03/21/21 Yola Resendiz R.N. 16:09 03/21/21. BP: 105/70. HR: 72. RR: 16. O2 saturation: 100%. --16:03/21/21 Hinkle sharepoint net developer, Mirta, ER Tech1.DISPOSITION / DISCHARGE 17:03/21/21. BP: 112/69. HR: 73. RR: 16. O2 saturation: 99%. Temp: 98.3 F. Pain level now 0/10. --17:03/21/21 Hinkle sharepoint net developer, Mirta, ER Tech1 Condition at departure: unchanged. No learning barriers present. Discharge instructions provided and reviewed with the patient. Reviewed medication(s) side effects, precautions, dosing and course informa tion. Prescription(s) given to the patient and sent electronically to pharmacy. Patient verbalized understanding. Written instructions provided in Vincentian. The patient was discharged home and unaccompanied at time of discharge. She left ambulatory and via private vehicle. Patient driving. --17:12 03/21/21 Yola Resendiz R.N. Departure time: 17:12 03/21/2021. --17:12 03/21/21 Yola Resendiz R.N.Locked/Released at 03/21/2021 17:12 by Yola Resendiz R.N. 4 Clinical Report - Nurses [facility] Emergency Department [address] [place] [address] Phone #: ext- [phone] 03/21/2021 14:52 Patient: BRITTNY EVERETT Sex: F : 1995 Age: 25y Name Value Range Interpretation Code Description Data Herminia rce(s) Supporting Document(s) ID Date Data Source [id number] 03/21/2021 02:53:00 PM EDT [facility] 1 Clinical Report - Physicians/Mid Levels [facility] Emergency Department [address] [place] [address] Phone #: ext- [phone] 03/21/2021 14:52 Patient: BRITTNY EVERETT Sex: F [...] Allergies: 2 Clinical Report - Physicians/Mid Levels [facility] Emergency Department [address] [place] [address] Phone #: ext- [phone] 03/21/2021 14:52 Patient: BRITTNY EVERETT Sex: F [...] in themedical decision making process. OB TRANSVAGINAL LAC DU FLAMBEAU: (MILEY: 03/21/2021 15:34) [facility] 16:12) In Progress US OB TRANSVAGINAL LAC DU FLAMBEAU Reason for Exam: abd pain and vaginal bleeding TRANSPORTATION: AMB IV? N O2? N STATUS: ISOLATION N CBC w Diff: (MILEY: 03/21/2021 16:00) ( [facility] 03/21/2021 16:15) Final results Test Result Flag [...] 0.0) 3 Clinical Report - Physicians/Mid Levels [facility] Emergency Department [address] [place] [address] Phone #: ext- [phone] 03/21/2021 14:52 Patient: [...] Male GFR Interprentation 20-49 yrs >60 mL/min Puohia85-63 yrs >56 mL/min Normal 60-69 yrs >49 mL/min Normal 70-79yrs>42 mL/min Normal 80 and above >35 mL/min Normal Female GFRInterpretation 20-39 yrs >60 mL/min Normal 40-49 yrs >58 mL/minNormal 50-59 yrs >51 mL/min Normal 60-69 yrs >45 mL/min Hkajrj33-37 yrs >39 mL/min Normal 80 and above [...] Yello 4 Clinical Report - Physicians/Mid Levels [facility] Emergency Department [address] [place] [address] Phone #: ext- [phone] 03/21/2021 14:52 Patient: BRITTNY EVERETT Sex: F [...] Weeks post LMP 5.4-708 mU/mL 3-4 Weeks 217-29582 mU/mL 5-6 Weeks 4059-720374 mU/mL 7-8 Weeks 76241-703030 mU/mL 9-10 Weeks 48820-64131 mU/mL 12-14 Weeks 79115-69191 mU/mL 15-16 Weeks 8240-30662 mU/mL 17-18 Weeks US OB 1ST TRI [...] . 5 Clinical Report - Physicians/Mid Levels [facility] Emergency Department [address] [place] [address] Phone #: ext- [phone] 03/21/2021 14:52 Patient: [...] capsule. Refills: 0. Substitution permitted. Pharmacy - [facility] #[id number] [phone]. FaxNumber: [phone]. ondansetron 8 mg disintegrating tablet Take 1 tablet three times a day for 10 days -- Dispense 30 tablet. Refills: 0. Substitution permitted. Pharmacy - [facility][id number] - [address], [place] [phone]. . 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 Reason for referral: evaluation, treatment and repeat Beta Hcg and serial US. Summary of care provided to patient. Understanding of the discharge instructions verbalized by patient.(Electronically signed by IGNACIA Saunders 03/21/2021 19:47) Name Value Range Interpretation Code Description Data Herminia [facility](s) Supporting Document(s) ID Date Data Source [id number] 03/21/2021 02:53:00 PM EDT [facility] for BRITTNY EVERETT VisitID: [id number] Date: 13:39Pt urine growing E. COli [id number], d/c on cephalexin 500mg PO TIDx7 days which is sensitive, shownto Eladia BETH at 1338, no further treatment required.(Electronically signed by Chandrika Real R.N. - 03/26/2021 13:39) Name Value Range Interpretation Code Description Data Herminia rce(s) Supporting Document(s) ID Date Data Source [id number] 03/21/2021 08:37:00 PM EDT [facility] [place] [address] PHONE: [phone] FAX: [phone] Name .................. : MARGUERITE Domingo Acct Number.................. : [id number] ROOM. ................. : [facility] MR Number ................... : [id number] Stay type ............. : E/R Discharge Date......... ... : 03/21/21 Admit Date ......... : 03/21/21 Admit Phys .................... : COONEYNORM Date of ....... : 1995 Family Phys ................... : UNKNOWN CO Phone .................. : [phone] Age ................................ : 25 Film# .................. .:[id number] Sex ................................. : F Unsigned transcriptions are preliminary reports and do not represent a medical or legal document [place] [id number] COMPLETE:03/21/21 16:12 [facility] [id number] Reason for Exam: abd pain and vaginal bleeding ULTRASOUND PELVIS INDICATION: Abdominal pain and vaginal bleeding. COMPARISON: None Preliminary report for this exam was provided by [facility] . TECHNIQUE: Ultrasound of the pelvis is [...] ectopic. If not Page 1 of 2 [facility] [address] [place] [address] PHONE: [phone] FAX: [phone] Name .................. : MARGUERITE Domingo Acct Number.................. : [id number] ROOM. ................. : TR-04 Number ................... : [id number] Stay type ............. : E/R Discharge Date......... ... : 03/21/21 Admit Date ......... : 03/21/21 [facility] .................... [facility] Date of ....... : 1995 Family Phys ................... : UNKNOWN CO Phone .................. : [phone] Age ................................ : 25 Film# .................. .:[id number] Sex ................................. : F Unsigned transcriptions are preliminary reports and do not represent a medical or legal document [place] [id number] COMPLETE: 11/05 16:12 [facility] [id number] Reason for Exam: abd pain and vaginal [...] rce(s) Supporting Document(s) ID Date Data Source [id number] 03/21/2021 04:48:00 PM EDT [facility] Name Value Range Interpretation Code Description Data Herminia rce(s) Supporting Document(s) Choriogonadotropin.intact [Units/volume] in Serum or Plasma 117.5 mIU /mL [facility] Interpr etation: Less than 5 mU/mL: Negative 6-10 mU/mL: Borderline (suggest repeat in 48 hours) >10: Positive Approx HCG range (mU/mL) Weeks post LMP 5.4-708 mU/mL 3-4 Weeks 217-60356 mU/mL 5-6 Weeks 4059-522254 mU/mL 7-8 Weeks 54877-099432 mU/mL 9-10 Weeks 57224-02010 mU/mL 12-14 Weeks 17315-09572 mU/mL 15-16 Weeks 8240- 04427 mU/mL 17-18 Weeks ID Date Data Source [id number] 03/21/2021 04:40:00 PM EDT [facility] Name Value Range Interpretation Code Description Data Herminia rce(s) Supporting Document(s) COMPREHENSIVE METABOLIC PANEL [facility] COMPREHENSIVE METABOLIC PANEL Sodium [Moles/volume] in Serum or Plasma 139 mEq/L 134 - 153 [facility] Potassium [Moles/volume] in Serum or Plasma 4.1 mEq/L 3.6 - 5.0 [facility] Chloride [Moles/volume] in Serum or Plasma 104 mEq/L 98 - 107 [facility] Carbon dioxide, total [Moles/volume] in Serum or Plasma 26 MEQ/L 22 - 30 [facility] Glucose [Mass/volume] in Serum or Plasma 88 MG/DL 70 - 99 [facility] BUN 11 MG/DL 7 - 21 [facility] Creatinine [Mass/volume] in Serum or Plasma 0.6 MG/DL 0.7 - 1.5 L [facility] BUN/CREAT 18 8 - 27 [facility] Protein [Mass/volume] in Serum or Plasma 6.9 G/DL 6.3 - 8.2 [facility] Albumin [Mass/volume] in Serum or Plasma 4.4 G/DL 3.9 - 5.0 [facility] Globulin [Mass/volume] in Serum by calculation 2.5 GM/DL 2.4 - 3.2 [facility] A/G RATIO 1.8 0.8 - 2.0 [facility] Calcium [Mass/volume] in Serum or Plasma 9.1 MG/DL 8.4 - 10.2 [facility] Bilirubin.total [Mass/volume] in Serum or Plasma 0.8 MG/DL 0.2 - 1.3 [facility] Alkaline phosphatase [Enzymatic activity/volume] in Serum or Plasma 50 U/L 38 - 126 [facility] Aspartate aminotransferase [Enzymatic activity/volume] in Serum or Plasma 17 U/L 5 - 40 [facility] Alanine aminotransferase [Enzymatic activity/volume] in Seru m or Plasma 9 U/L 7 - 56 [facility] Anion gap 3 in Serum or Plasma 9.0 mmol/L 8.0 - 16.0 [facility] AGE [address] [facility] al NON-AA GFR >60 mL/min [facility] ital AFR AMER GFR >60 mL/min [...] >32 mL/min Normal ID Date Data Source [id number] 03/21/2021 04:39:00 PM EDT [facility] Name Value Range Interpretation Code Description Data Herminia rce(s) Supporting Document(s) ABO group [Type] in Blood O [facility] Rh [Type] in Blood POSITIVE [facility] { ABO/RH REENTER O POSITIVE ID Date Data Source [id number] 03/21/2021 04:15:00 PM EDT [facility] Name Value Range Interpretation Code Description Data Herminia rce(s) Supporting Document(s) CBC W/AUTOMATED DIFF [facility] COMPLETE BLOOD COUNT Leukocytes [#/volume] in Blood by Automated count 6.3 10^3/uL 4.2 - 1 1.0 [facility] Erythrocytes [#/volume] in Blood by Automated count 4.49 10^6/uL 4. 20 - 5.40 [facility] Hemoglobin [Mass/volume] in Blood 13.1 g/dL 12.0 - 16.0 [facility] Hematocrit [Volume Fraction] of Blood by Automated count 38.2 % 3 7.0 - 47.0 [facility] Erythrocyte mean corpuscular volume [Entitic volume] by Auto mated count 85.1 fL 81.0 - 101 [facility] Erythrocyte mean corpuscular hemoglobin [Entitic mass] by Automated count 29.2 pg 27.0 - 34.0 [facility] Erythrocyte mean corpuscular hemoglobin concentration [Mass/volume] by Automated count 34.3 g/dL 31.0 - 36.0 [facility] Erythrocyte distribution width [Ratio] by Automated count 12.7 % 11.5 - 14.5 [facility] Platelets [#/volume] in Blood by Automated count 250 10^3/uL 150 - 45 0 [facility] Platelet mean volume [Entitic volume] in Blood by Automated count 9.9 fL 7.4 - 10.4 [facility] Neutrophils/100 leukocytes in Blood by Automated count 56.5 % 37. 0 - 80.0 [facility] Lymphocytes/100 leukocytes in Blood by Manual count 34.1 % 25.0 - 40.0 [facility] Monocytes/100 leukocytes in Blood by Automated count 6.5 % 3.0 - 8.0 [facility] Eosinophils/100 leukocytes in Blood by Automated count 2.1 % 0.0 - 7.0 [facility] Basophils/100 leukocytes in Blood by Automated count 0.5 % 0.0 - 2.5 [facility] %IG 0.3 % 0.0 - 0.0 [facility] al %NRBC 0.0 % 0.0 - 0.0 [facility] Neutrophils [#/volume] in Blood by Automated count 3.58 10^3/uL 2.00 - 6.90 [facility] Lymphocytes [#/volume] in Blood by Automated count 2.16 10^3/uL 0.60 - 3.40 [facility] Monocytes [#/volume] in Blood by Automated count 0.41 10^3/uL 0.00 - 0.90 [facility] Eosinophils [#/volume] in Blood by Automated count 0.13 10^3/uL 0.00 - 0.70 [facility] Basophils [#/volume] in Blood by Automated count 0.03 10^3/uL 0.00 - 0.20 [facility] #IG 0.02 10^3/uL 0.00 - 0.10 [facility] ospital #NRBC 0.00 10^3/uL 0.00 - 0.00 [facility] ospital MANUAL DIFF NOT INDICATED [facility] RBC MORPH NOT INDICATED [facility] spital ID Date Data Source [id number] 03/26/2021 06:46:00 AM EDT [facility] Name Value Range Interpretation Code Description Data Herminia rce(s) Supporting Document(s) CULTURE URINE [facility] spital _CULTURE URINE_$$[id number]$$[id number]$$[id number]$$883766$$011213$$935025$$637013$$892648$$447269$$ 891410$$509602$$130402$$636554$$090511$$176849$$856361$$371632$$193362$$870460$$ 477178$$583688$$189190$$473565$$410047$$886509$$832030$$019889 -- Continued on next page --Patient: MARGUERITE Domingo Order: [id number] Page 2Culture: CULTURE URINE Status: Final ==== -- Continued on next page --Patient: MARGUERITE Domingo Order: [id number] Page 2Culture: CULTURE URINE Status: Prelim =====$$[id number]$$[id number] DATE/TIME: 03/26/2021 06:06Culture: CULTURE URINE Status: FinalIsolate 1 Escherichia coli Flag: A . . . . . . .1Multi-Drug Resistant Owwfuubw79,000-100,000 colony forming units per mLCefazolin <=4 ug/mLCefazolin with an MARTIN <=16 predicts susceptibility to the oral agentscefaclor, cefdinir, cefpodoxime, cefprozil, cefuroxime, cephalexin,and loracarbef when used for therapy of uncomplicated urinary tractinfections due to E. coli, Klebsiella pneumoniae, and Proteusmirabilis. Previous result entered on 03/25/2021 06:07 ET Gram negative rods50,000-100,000 colony forming units per mLUrine Culture,Comprehensive: E4Svapdlnzbrs coli Flag: APatient: MARGUERITE Domingo Order: [id number] Page 3Culture: CULTURE URINE Status: Final ====ISOLATE [...] S S . . . . . .82859-8Uaurxjaeex R R . . . . . .267-5Imipenem S S . . . . . .279-0Levofloxacin R R . . . . . .66680-8Ayuoergby S S . . . . . .6652-2Nitrofurantoin S S . . . . . .363- 2Piperacillin/Tazobactam S S . . . . . .412-7Tetracycline R R . . . . . .496-0Tobramycin I I . . . . . .508-2Trimethoprim/Sulfa R R . . . . . .516-5P1 Test performed by: Manny SHAHID #: [id number] [address] [place] [address] [id number] [place] [address] Director : Prince Logan MD NPI #:Tool Trouble Shooter : 03/25/21.0731.XMT.SENT REF 03/26/21.0646.XMT.SENT REF ID Date Data Source [id number] 03/24/2021 06:21:00 AM EDT [facility] Name Value Range Interpretation Code Description Data Herminia rce(s) Supporting Document(s) Chlamydia trachomatis rRNA [Presence] in Unspecified specimen by Probe and target amplification method Negative Negative [facility] Neisseria gonorrhoeae rRNA [Presence] in Unspecified specimen by Probe and target amplification method Negative Negative [facility] ID Date Data Source [id number] 03/21/2021 03:45:00 PM EDT [facility] Name Value Range Interpretation Code Description Data Herminia rce(s) Supporting Document(s) [facility] COL[facility] yellow NORMAL: Yellow [facility] CLARITY clear NORMAL: Clear [facility] spital Specific gravity of Urine by Test strip 1.015 1.001 - 1.030 [facility] pH 7 5 - 9 [facility] Glucose [Mass/volume] in Urine by Test strip NORM NORMAL: Negat [facility] Bilirubin.total [Presence] in Urine by Test strip NEG NORMAL: Negative [facility] Ketones [Presence] in Urine by Test strip NEG NORMAL: Negative [facility] Protein [Mass/volume] in Urine by Test strip NEG NORMAL: Negat [facility] Nitrite [Presence] in Urine by Test strip NEG NORMAL: Negative [facility] BLOOD NEG NORMAL: Negative [facility] LEUK EST 100 NORMAL: Negative [facility] Urobilinogen [Mass/volume] in Urine by Test strip NOR less hugh n 1.0 mg/dL [facility] MICROSCOPIC See Below [facility] ital WBC None Seen NORMAL: NONE SEEN [facility] Erythrocytes [#/volume] in Urine by Test strip None Seen NORMAL: NON E SEEN [facility] Bacteria [Presence] in Urine sediment by Light microscopy 1+ SMALL NORMAL: NONE SEEN [facility] ID Date Data Source [id number] 09/18/2020 02:09:[address] [facility] 1 OrderSheet [facility] Emergency Department [address] [place] [address] Phone #: ext- [phone] 09/18/2020 14:08 Patient: [...] rce(s) Supporting Document(s) ID Date Data Source [id number] 09/18/2020 02:09:[address] [facility] 1 Medication Reconciliation Report [facility] Emergency Department [address] [place] [address] Phone #: ext- [phone] 09/18/2020 14:08 Patient: [...] Dispense 21 capsule.Refills: 0. Substitution permitted.Pharmacy - [id number] - [address] [place], [place] [phone]. . -- Eber Robert P.A.-C Name Value Range Interpretation Code Description Data [facility](s) Supporting Document(s) ID Date Data Source [id number] 09/18/2020 02:09:00 PM [place] [address] Medication Administration Record [facility] Emergency Department [address] [place] [address] Phone #: ext- [phone] 09/18/2020 14:08 Patient: BRITTNY EVERETT Sex: F : 1995 Age: 24yWeight: 82.5 kgHeight/Length: 73 inBMI: 24ALLERGIES: Latex, Bees, Iodinated Diagnostic Agents, Shellfish-derived ProductsDate/Time Medication Administered Medication Ordered Name Value Range Interpretation Code Description Data Herminia e(s) Supporting Document(s) ID Date Data Source [id number] 09/18/2020 02:09:[address] [facility] 1 General Instructions [facility] Emergency Department [address] [place] [address] Phone #: ext- [phone] 09/18/2020 14:08 Patient: [...] capsule. Refills: 0. Substitution permitted. Pharmacy - [facility] #[id number] - [address] [place], [place] [phone]. . Follow-up: Return to the emergency department [...] closure or skin glue. 2 General Instructions [facility] Emergency Department [address] [place] [address] Phone #: ext- [phone] 09/18/2020 14:08 Patient: [facility]T [id number] Sex: F : 1995 Age: 24yHome care [...] pain medicines were prescribed, you can use wbch-gue-xgjvkul pain medicines. Follow instructions for taking any [...] while the glue is 3 General Instructions [facility] Emergency Department [address] [place] [address] Phone #: ext- [phone] 09/18/2020 14:08 Patient: BRITTNY EVERETT [facility]#: [id number] Sex: F : 1995 Age: 24y in [...] be painful when eating. You may use jinvws-ymo-jmkryfr local numbing solution for pain relief. If [...] any of these occur: 4 General Instructions [facility] Emergency Department [address] [place] [address] Phone #: ext- [phone] 09/18/2020 14:08 Patient: [...] control the wound bleeding with direct pressure. [id number] [employer] [place] [address], [place] [address]. All rights reserved. This information is not intended as asubstitute for professional medical care. Always follow your healthcare professional's instructions.Extremity Laceration: Stitches, [place], or TapeA laceration is a cut through [...] with your healthcare provider 5 General Instructions [facility] Emergency Department [address] [place] [address] Phone #: ext- [phone] 09/18/2020 14:08 Patient: [...] wound Decreased movement around the injured area 0964-17[address] [employer] [address] [place] [address]. All rights reserved. This information is not intended as asubstitute for professional medical care. Always follow your healthcare professional's instructions. 6 General Instructions [facility] Emergency Department [address] [place] [address] Phone #: ext- [phone] 09/18/2020 14:08 Patient: [...] controlled by direct pressure 7 General Instructions [facility] Emergency Department [address] [place] [address] Phone #: [phone] eaw- [phone] 09/18/2020 14:08 Patient: BRITTNY EVERETT Sex: F : 1995 Age: 24y Signs of infection, including increasing pain in the wound, increasing wound redness or swelling, or pus or bad odor coming from the wound Fever of 100.4F (38.C) or higher, or as directed by your healthcare provider Wound edges reopen Wound changes colors Numbness around the wound Decreased movement around the injured area 4228-4219 [employer] [address] [place] [address], [place] [address]. All rights reserved. This information is not [...] have any left over. 8 General Instructions [facility] Emergency Department [address] [place] [address] Phone #: ext- [phone] 09/18/2020 14:08 Patient: BRITTNY EVERETT Sex: F : 1995 Age: 24y The healthcare provider may prescribe medicines for pain. If no pain medicines were prescribed, you can use dlam-kvo-hbmxkcp pain medicines. Follow instructions for taking any [...] after each meal and 9 General Instructions [facility] Emergency Department [address] [place] [address] Phone #: nvl- [phone] 09/18/2020 14:08 Patient: BR[facility]ETT [facility] [id number] Sex: F : 1995 Age: 24yat bedtime with a mixture of equal parts water and hydrogen peroxide (don't swallow!). Or you canuse a cotton swab to directly apply hydrogen peroxide onto the cut. You may also be prescribed achlorhexidine solution to rinse with. Mouth wounds can be painful when eating. You may use mcjpuv-pmr-jqgynbk local numbing solution for pain relief. If [...] control the wound bleeding with direct pressure. 3069-1873 [employer] [address] [place] [address], [place] [address]. All rights reserved. This information is not intended as asubstitute for professional medical care. Always follow your healthcare professional's instructions.Extremity Laceration: Stitches, [place], or Tape 10 General Instructions [facility] Emergency Department [address] [place] [address] Phone #: ext- [phone] 09/18/2020 14:08 Patient: BRITTNY EVERETT Sex: F [...] fallen off by then. 11 General Instructions [facility] Emergency Department [address] [place] [address] Phone #: ext- [phone] 09/18/2020 14:08 Patient: BRITTNY EVERETT [facility] [id number] Sex: F : 1995 Age: 24yWhen to [...] wound Decreased movement around the injured area [employer]. [address] [place] [address]. All rights reserved. This information is not [...] rce(s) Supporting Document(s) ID Date Data Source [id number] 09/18/2020 02:09:00 PM EST [facility] 1 Clinical Report - Nurses [facility] Emergency Department [address] [place] [address] Phone #: ext- [phone] 09/18/2020 14:08 Patient: BRITTNY EVERETT Sex: F : 1995 Age: 24yTRIAGEArrived by private vehicle. Historian: patient. Unaccompanied.Triage time: late entry - 14:08 09/18/2020. Acuity: LEVEL 4.Chief Complaint: LACERATION.Alert. No acute distress.Location of injuries: tip of left index finger. Occurred at work. Occurred late entry - 14:00 09/18/2020. 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 SEPSIS SCREEN NEGATIVE. No suspected or confirmedsigns of infection present. (14:18 09/18/2020). --14:18 09/18/20 Chandrika Real R.N.14:14 09/18/20. BP: 96/71. MAP: 79. HR: 78. RR: 16. O2 saturation: 100% on room air. Temp: 98.3 F(oral). Pain level now: 11/24. --14:18 09/18/20 Chandrika Real R.N.Weight: 82.5 kg measured. Height/Length: 73 inches Per Patient. BMI: 24. --14:08 09/18/20 Chandrika Real R.N.MedicationsNone. --14:15 09/18/20 Chandrika Real R.N.AllergiesBees.Iodinated Diagnostic Agents.Shellfish-derived Products. --14:15 09/18/20 Chandrika Real R.N.Latex. --14:15 09/18/20 Chandrika Real R.N.PROBLEMS:Crohn's Disease.Polycystic Kidney.Anxiety Reaction.Depression. --14:16 09/18/20 Chandrika Real R.N.Medication/allergy information source: the patient. --14:18 09/18/20 Chandrika Rela R.N. 2 Clinical Report - Nurses [facility] Emergency Department [address] [place] [address] Phone #: ext- [phone] 09/18/2020 14:08 Patient: [...] 2. Bed 3 Clinical Report - Nurses [facility] Emergency Department [address] [place] [address] Phone #: ext- [phone] 09/18/2020 14:08 Patient: BRITTNY EVERETT Sex: F [...] wound is flap-like. Preparation. Wound cleansed per IGNACIA and irrigated per PA with 1000 mL [...] F. Pain level now: 09/24. --15:56 09/18/20 [facility] ER Tech1 Departure time: late entry - 16:13 09/18/2020. Condition at departure: stable. No learning barriers present. Discharge instructions provided and reviewed with the patient. Reviewed warnings (please see paper copy). Reviewed medication(s) side effects, precautions, dosing and course information. Prescription(s) sent electronically to pharmacy (cephalexin). Reviewed wound care instructions. Activity restrictions reviewed. Work note given. Patient verbalized understanding. Written instructions provided in Vincentian. The patient was discharged by the physician material assistant. She was discharged home and unaccompanied at time of discharge. She left ambulatory and via private vehicle. Patient driving. --16:17 09/18/20 Chandrika Real R.N.Locked/Released at 09/18/2020 16:18 by Chandrika Real R.N. 4 Clinical Report - Nurses [facility] Emergency Department [address] [place] [address] Phone #: [phone]- [phone] 09/18/2020 14:08 Patient: BRITTNY EVERETT Sex: F : 1995 Age: 24y Name Value Range Interpretation Code Description Data Herminia rce(s) Supporting Document(s) ID Date Data Source [id number] 09/18/2020 02:09:00 PM EST [facility] 1 Clinical Report - Physicians/Mid Levels [facility] Emergency Department [address] [place] [address] Phone #: ext- [phone] 09/18/2020 14:08 Patient: [...] injury. 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 3 Clinical Report - Physicians/Mid Levels [facility] Emergency Department [address] [place] [address] Phone #: ext- [phone] 09/18/2020 14:08 Patient: BRITTNY EVERETT [facility] [id number] Sex: F : 1995 Age: 24y Enter [...] or 4 Clinical Report - Physicians/Mid Levels [facility] Emergency Department [address] [place] [address] Phone #: ext- [phone] 09/18/2020 14:08 Patient: BRITTNY EVERETT [facility] [id number] Sex: F : 1995 Age: 24y increased [...] capsule. Refills: 0. Substitution permitted. [id number] [address], [place] [phone]. . Follow- up: Return to the emergency [...] Value Range Interpretation Code Description Data Source(s) Oxygen saturation in Arterial blood by Pulse oximetry 99 % 99 % [facility] ([facility]) Respiratory rate 16 /min 16 /min [facility] ( [facility]) Diastolic blood pressure 58 mm[Hg] 58 mm[Hg] [facility] ([facility]) Body weight 185.50 [lb_av] 185.50 [lb_av] MEDEN T ([facility]) Body weight 84.143 kg 84.143 kg [facility] ([facility]) Body height 73 [in_i] 73 [in_i] [facility] ([facility]) 6'1" Body mass index (BMI) [Ratio] 24.5 kg/m2 24.5 k g/m2 [facility] ([facility]) Body surface area Derived from formula 2.08 m2 2.08 m2 [facility] ([facility]) Systolic blood pressure 120 mm[Hg] 120 mm[Hg] M EDENT ([facility]) Heart rate 94 /min 94 /min [facility] ([facility]) Body weight 174 [lb_av] 174 [lb_av] eCW1 ([facility]) Body height 73 [in_i] 73 [in_i] eCW1 ([facility]) Body mass index (BMI) [Ratio] 22.95 kg/m2 22.95 kg/m2 eCW1 ([facility]) Heart rate 81 /min 81 /min eCW1 ([facility]) Respiratory rate 17 /min 17 /min eCW1 ([facility]) Body temperature 98.1 [degF] 98.1 [degF] eCW1 [...]
[2021-06-05 10:32] LABS: BASO % 0.3 % (0.0-1.0); EOS % 0.6 % (0.0-3.0); HEMATOCRIT 35.5 % (36.0-47.0); HEMOGLOBIN 11.8 g/dl (12.0-15.5); LYMPH # 2.4 10^3/uL (1.5-5.0); LYMPH % 33.9 % (24.0-44.0); MEAN CORPUSCULAR HEMOGLOBIN 28.3 pg (27.0-33.0); MEAN CORPUSCULAR HGB CONC 33.2 g/dl (32.0-36.5); MEAN CORPUSCULAR VOLUME 85.1 fl (80.0-96.0); MONO # 0.3 10^3/uL (0.0-0.8); MONO % 4.5 % (2.0-8.0); NEUTROPHILS # 4.3 10^3/uL (1.5-8.5); NEUTROPHILS % 60.3 % (36.0-66.0); PLATELET COUNT, AUTOMATED 208 10^3/uL (150-450); RED BLOOD COUNT 4.17 10^6/uL (4.00-5.40); WHITE BLOOD COUNT 7.1 10^3/uL (4.0-10.0)
[2021-06-05 10:56] LABS: ALBUMIN 3.4 GM/DL (3.2-5.2); ALT/SGPT 26 U/L (12-78); BILIRUBIN,DIRECT 0.2 MG/DL (0.0-0.2); BILIRUBIN,TOTAL 0.7 MG/DL (0.2-1.0); BLOOD UREA NITROGEN 8 MG/DL (7-18); CALCIUM LEVEL 8.8 MG/DL (8.5-10.1); CARBON DIOXIDE LEVEL 26 MEQ/L (21-32); CHLORIDE LEVEL 108 MEQ/L (98-107); CREATININE FOR GFR 0.54 MG/DL (0.55-1.30); GLOMERULAR FILTRATION RATE > 60.0 (>60); GLUCOSE, FASTING 75 MG/DL (70-100); LIPASE 108 U/L (73-393); POTASSIUM SERUM 4.5 MEQ/L (3.5-5.1); SODIUM LEVEL 139 MEQ/L (136-145); TOTAL PROTEIN 6.8 GM/DL (6.4-8.2)
--- NOTE | 2021-06-05 10:58 | REP ---
INDICATION: cramping, 15 weeks COMPARISON: None. TECHNIQUE: Transabdominal obstetrical ultrasound with color Doppler evaluation. FINDINGS: Examination demonstrates a single live intrauterine in variable presentation. motion is identified by technologist. Placenta is noted fundal and grade 0 without evidence for placenta previa or abruption. Amniotic fluid volume is normal. Cervix measures 3.3 cm in length and appears closed. Synechia identified along the left lateral aspect. The left ovary includes a 19 x 17 x 21 mm complex lesion likely resolving hemorrhagic corpus luteum cyst. Selected gestational age: 15 weeks 3 days with BARBARA 11/24/2021. Gestational age by current measurements 15 weeks 1 day with BARBARA 11/26/2021. FHR equals 152 beats per minute. Estimated weight 118 grams (30thpercentile). IMPRESSION: Live intrauterine demonstrating appropriate growth compared to 1st ultrasound. As above. Follow-up and complete anatomical assessment should be performed at 19-20 weeks. <Electronically signed by Mina Joiner > 06/05/21 [id number]
--- OUTSIDE RECORDS SUMMARY | 2021-06-05 12:19 | CCD ---
Author Author [facility] Organization [facility] Address Unknown Phone Unavailable Care Team Providers Care Computer Forensics Technician Name Role Phone Nwogu, U Brien DO [...] is protected by Article 27-F of the [facility] Public Health law. If you continue you may have access to information: Regarding HIV / AIDS; Provided by facilities licensed or operated by the [facility] Office of Mental Health; or Provided by the [facility] Office for People With Developmental Disabilities. If such information is present, then the following [facility] mandated warning applies: This information has been [...] law may result in a fine or custodial sentence or both. A general authorization for the release of medical or other information is NOT sufficient authorization for further disc losure. Family History Family Member Name Family Member Gender Family Member Status Date o f Status Description Data Source(s) Unknown Unknown Problem [facility] ([facility], ) Encounters Encounter Providers Location Date Indications Data Source(s ) Outpatient Attender: Brien Smith DOConsultant: DILAN LLOYD KNOWN 05/08/2021 07:35:00 AM EDT - 05/08/2021 08:35:00 AM EDT [facility] Outpatient Attender: Brien Smith DO [facility] 04/18 02:15:00 PM EDT [facility] ([facility]) Outpatient Attender: Brien Smith DOConsultant: DILAN LLOYD KNOWN 05/06/2021 02:12:00 PM EDT - 05/06/2021 02:12:00 PM EDT [facility] Emergency Attender: TY TORRES MD 2020 02:53:00 PM EDT - 03/21/2021 05:12:00 PM EDT [facility] Patient discharged. Unknown [address] [facility] [address] 10/24/2020 12:00:00 AM EDT eCW1 (Formerly [facility]) Emergency Attender: TY TORRES MD 2020 02:09:00 PM EST - 09/18/2020 04:13:00 PM EST [facility] Patient discharged. Unknown [address] [facility] [address] 08/12/2020 12:00:00 AM EST eCW1 ([facility]) Unknown [address] [facility] [address] 07/22/2020 12:00:00 AM EST eCW1 ([facility]) Outpatient [address] [facility] [address] 07/04/2020 12:00:00 AM EST eCW1 (Formerly [facility]) Immunizations Vaccine Date Status Description Data Source(s) COVID-19 VACCINE Moderna 11/28/2020 12:00:00 AM EDT completed [facility] Vaccine Series Complete: NOThis Data was Submitted to [facility] Via Mailpile. Medications Medication Brand Name Start Date Product Form Dose Route Admi nistrative Instructions Pharmacy Instructions Status Indications Reaction Description Data Source(s) meloxicam 7.5 MG Oral Tablet Meloxicam 7.5 MG Meloxicam 7.5 MG 07/04/2020 12:00:00 AM EST 1.0 {tablet} active Me loxicam 7.5 MG eCW1 ([facility]) Omeprazole 40 MG Delayed Release Oral Capsule Omeprazole 40 MG 07/04/2020 12:00:00 AM EST active Omeprazo le 40 MG eCW1 ([facility]) meloxicam 7.5 MG Oral Tablet Meloxicam 7.5 MG Meloxicam 7.5 MG 07/04/2020 12:00:00 AM EST 1.0 {tablet} active Me loxicam 7.5 MG eCW1 ([facility]) Omeprazole 40 MG Delayed Release Oral Capsule Omeprazole 40 MG 07/04/2020 12:00:00 AM EST active Omeprazo le 40 MG eCW1 ([facility]) meloxicam 7.5 MG Oral Tablet Meloxicam 7.5 MG Meloxicam 7.5 MG 07/04/2020 12:00:00 AM EST 1.0 {tablet} active Me loxicam 7.5 MG eCW1 ([facility]) Omeprazole 40 MG Delayed Release Oral Capsule Omeprazole 40 MG 07/04/2020 12:00:00 AM EST active Omeprazo le 40 MG eCW1 ([facility]) meloxicam 7.5 MG Oral Tablet Meloxicam 7.5 MG Meloxicam 7.5 MG 07/04/2020 12:00:00 AM EST 1.0 {tablet} active Me loxicam 7.5 MG eCW1 ([facility]) topiramate 50 MG Oral Tablet Topiramate 50 MG Topiramate 50 MG 07/04/2020 12:00:00 AM EST 1.0 {tablet} active To piramate 50 MG eCW1 ([facility]) Omeprazole 40 MG Delayed Release Oral Capsule Omeprazole 40 MG 07/04/2020 12:00:00 AM EST active Omeprazo le 40 MG eCW1 ([facility]) topiramate 50 MG Oral Tablet Topiramate 50 MG Topiramate 50 MG 07/04/2020 12:00:00 AM EST 1.0 {tablet} active To piramate 50 MG eCW1 ([facility]) topiramate 50 MG Oral Tablet Topiramate 50 MG Topiramate 50 MG 07/04/2020 12:00:00 AM EST 1.0 {tablet} active To piramate 50 MG eCW1 ([facility]) topiramate 50 MG Oral Tablet Topiramate 50 MG Topiramate 50 MG 07/04/2020 12:00:00 AM EST 1.0 {tablet} active To piramate 50 MG eCW1 ([facility]) Insurance Providers Payer name Policy type / Coverage type Policy ID Covered alliance party ID Covered alliance party's relationship to forbes Policy Forbes Plan Information [facility] ACTIVE DUTY [id number] SP [id number] [facility] (2018) Health Maintenance Organization (HMO) [id number] Self [id number] U [id number] Self [id number] [facility] HUMANA [id number] SP [id number] [facility] ACTIVE DUTY [id number] SP [id number] [facility] HUMANA - O/P [id number] 18 [id number] [facility] MANAGEMENT [place] [id number] SP [id number] HUMANA [facility] REG O [id number] S [id number] ACTIVE DUTY [id number] SP [id number] ANSI-Not a Secondary Insurance [id number] [facility] MEDICAID [id number] SP [id number] R [facility] [place] O [id number] O [id number] SELF PAY ONLY [id number] SP [id number] [facility] OPTUM - FAC [id number] Problems, Conditions, and Diagnoses Code Display Name Description Problem Type Effective Dates Data Source(s) N912 Amenorrhea, unspecified Amenorrhea, unspecified Diagno sis 05/06/2021 02:12:00 PM EDT [facility] Z3A01 Less than 8 weeks gestation of Less than 8 weeks gestation of Diagnosis 03/21/2021 02:53:00 PM EDT [facility] O2311 Infections of bladder in , firs t trimester Infections of bladder in , first trimester Diagnosis 03/21/2021 02:53:00 PM EDT [facility] O209 Hemorrhage in early , unspecifi ed Hemorrhage in early , unspecified Diagnosis 03/21/2021 02:53:00 PM EDT [facility] Y9289 Other specified places as the place of o ccurrence of the external cause Other specified places as the place of occurrence of the external cause Diagnosis 09/18/2020 02:09:00 PM [facility] [id number] Contact with unspecified sharp object(s) , initial encounter Contact with unspecified sharp object(s), initial encounter Diagnosis 021 02:09:00 PM [facility] K44254 Latex allergy status Latex allergy status Diagnosis 09/18/2020 02:09:00 PM [facility] [id number] Personal history of nicotine dependence Personal history of nicotine dependence Diagnosis 09/18/2020 02:09:00 PM [facility] [id number] Laceration without foreign b maggie of left index finger without damage to nail, initial encounter Laceration without foreign body of left index finger without damage to nail, initial encounter Diagnosis 09/18/2020 02:09:0 0 PM [facility] [id number] Unspecified injury of left wrist, hand a nd finger(s), initial encounter Unspecified injury of left wrist, hand and finger(s), initial encounter Diagnosis 09/18/2020 02:09:00 PM [facility] G43.009 [id number] Migraine without aur a and without status migrainosus, not intractable Problem 07/04/2020 12:00:00 AM EST [facility] ([facility]) K21.9 [id number] Gastroesophageal ref lux disease, unspecified whether esophagitis present Problem 07/04/2020 12:00:00 AM EST eC1 ([facility]) Surgeries/Procedures Procedure Description Date Indications Data Source(s) OFFICE OUTPATIENT NEW 30 MINUTES 05/06/2021 12:00:00 A M EDT [facility] ([facility]) Results ID Date Data Source [id number] 05/08/2021 07:15:00 AM EDT [facility] ([facility]) Name Value Range Interpretation Code Description Data Herminia rce(s) Supporting Document(s) Choriogonadotropin.beta subunit [Moles/volume] in Seru m or Plasma 93505.0 mIU/mL [facility] ([facility]) if possative do QUANT ID Date Data Source [id number] 05/08/2021 07:15:00 AM EDT [facility] ([facility]) Name Value Range Interpretation Code Description Data Herminia rce(s) Supporting Document(s) HCG Serum QL [facility] test result [facility] ([facility]) if possative do QUANT HCG Serum Qual Laboratory test result [facility] ([facility]) if possative do QUANT ID Date Data Source [id number] 05/08/2021 10:43:00 AM EDT [facility] Name Value Range Interpretation Code Description Data Herminia rce(s) Supporting Document(s) Choriogonadotropin.intact [Units/volume] in Serum or Plasma 79597.0 mIU/mL [facility] Interpr etation: Less than 5 mU/mL: Negative 6-10 mU/mL: Borderline (suggest repeat in 48 hours) >10: Positive Approx HCG range (mU/mL) Weeks post LMP 5.4-708 mU/mL 3-4 Weeks 217-77364 mU/mL 5-6 Weeks 4059-341403 mU/mL 7-8 Weeks 13107-430851 mU/mL 9-10 Weeks 36531-28280 mU/mL 12-14 Weeks 90453-54896 mU/mL 15-16 Weeks 8240- 98763 mU/mL 17-18 Weeks ID Date Data Source [id number] 05/08/2021 08:11:00 AM EDT [facility] Name Value Range Interpretation Code Description Data Herminia rce(s) Supporting Document(s) HCG SERUM QUAL POSITIVE NORMAL: NEGATIVE [facility] HCG SERUM QL REENTER POSITIVE NORMAL: NEGATIVE [facility] { KIT LOT # [id number] ){ KIT EXP DATE 1/31/23 ){ PROCEDURAL CONTROL VALID ) ID Date Data Source [id number] 05/06/2021 03:52:00 PM EDT [facility] ([facility]) Name Value Range Interpretation Code Description Data Herminia rce(s) Supporting Document(s) Choriogonadotropin.beta subunit [Moles/volume] in Seru m or Plasma 34357.0 mIU/mL [facility] ([facility]) BETA HCG-April~BETA HCG-APRIL 18~.~N91.2 ID Date Data Source [id number] 05/06/2021 08:47:00 PM EDT [facility] Name Value Range Interpretation Code Description Data Herminia rce(s) Supporting Document(s) Choriogonadotropin.intact [Units/volume] in Serum or Plasma 21873.0 mIU/mL [facility] Interpr etation: Less than 5 mU/mL: Negative 6-10 mU/mL: Borderline (suggest repeat in 48 hours) >10: Positive Approx HCG range (mU/mL) Weeks post LMP 5.4-708 mU/mL 3-4 Weeks 217-17735 mU/mL 5-6 Weeks 4059-858706 mU/mL 7-8 Weeks 90685-582786 mU/mL 9-10 Weeks 09389-16589 mU/mL 12-14 Weeks 17518-80144 mU/mL 15-16 Weeks 8240- 52064 mU/mL 17-18 Weeks ID Date Data Source [id number] 03/21/2021 02:53:00 PM EDT [facility] 1 OrderSheet [facility] Emergency Department [address] [place] [address] Phone #: ext- [phone] 03/21/2021 14:52 Patient: [...] given -- 15:03/21/2021 Christiano BETH 2 OrderSheet [facility] Emergency Department [address] [place] [address] Phone #: ext- [phone] 03/21/2021 14:52 Patient: [...] rce(s) Supporting Document(s) ID Date Data Source [id number] 03/21/2021 02:53:00 PM EDT [facility] 1 Medication Reconciliation Report [facility] Emergency Department [address] [place] [address] Phone #: ext- [phone] 03/21/2021 14:52 [id number] Sex: F : 1995 Age: 25yWeight: 86.6 kgHeight/Length: 73 in.BMI: 25.2ALLERGIES: IodineThe patient's Home Medications are listed below:NONE.The source(s) of the original Home Medication information:Not obtained.The following Medications were given to the patient in the Emergency Department:Tylenol [PO] PO 1000 mg, administered: 15:26 03/21/2021Zofran ODT [PO] PO 8 mg, administered: 15:26 03/21/2021The following Medications were prescribed to the patient:cephalexin 500 mg capsule Take 1 capsule three times a day for 7 days -- Dispense 21 capsule.Refills: 0. Substitution permitted.[id number] [phone]. .ondansetron 8 mg disintegrating tablet Take 1 tablet three times a day for 10 days -- Dispense 30tablet. Refills: 0. Substitution permitted.Ph[facility] - [id number] [address] [place], [place] [phone]. . -- IGNACIA Saunders Name Value Range Interpretation Code Description Data Herminia rce(s) Supporting Document(s) ID Date Data Source [id number] 03/21/2021 02:53:00 PM EDT [facility] 1 Medication Administration Record [facility] Emergency Department [address] [place], [place] [address] Phone #: ext- [phone] 03/21/2021 14:52 Patient: BRITTNY EVERETT Sex: F [...] rce(s) Supporting Document(s) ID Date Data Source [id number] 03/21/2021 02:53:00 PM EDT [facility] 1 General Instructions [facility] Emergency Department [address] [place] [address] Phone #: ext- [phone] 03/21/2021 14:52 Patient: [...] days -- Dispense 21 capsule.Refills: 0. Substitution permitted.[id number] [address] [place], [place] [phone]. .ondansetron 8 mg disintegrating tablet Take 1 tablet three times a day for 10 days -- Dispense 30tablet. Refills: 0. Substitution permitted.[id number] [address] [place], [place] [phone]. .Follow-up:Follow up with your doctor ALLIANCE DIRECTOR in three d ays. Reason for referral: evaluation, treatment and repeatBeta Hcg and serial US. Summary of care provided to patient.Understanding of the discharge instructions verbalized by patient. ADDITIONAL INFORMATIONPregnancy 2 General Instructions [facility] Emergency Department [address] [place] [address] Phone #: ext- [phone] 03/21/2021 14:52 Patient: BRITTNY EVERETT Sex: F [...] care for a healthy 3 General Instructions [facility] Emergency Department [address] [place], [place] [address] Phone #: ext- [phone] 03/21/2021 14:52 Patient: [...] can seeyo ur family provider, a specialist (sky line yarder), a finance associate, or a primary care clinic.When to seek medical adviceCall your healthcare provider right away if any of these occur: Vaginal bleeding Pain in your belly (abdomen) or back that is moderate or severe 4 General Instructions [facility] Emergency Department [address] [place] [address] Phone #: ext- [phone] 03/21/2021 14:52 Patient: BRITTNY EVERETT Sex: F : 1995 Age: 25y Lots of vomiting, or you can't keep any fluids down for 6 hours Burning feeling when you urinate Headache, dizziness, or rapid weight gain Fever Vision changes or blurred vision 7780-[address] [employer] [place] [address]. All rights reserved. This information is not [...] spreads to the kidney. 5 General Instructions [facility] Emergency Department [address] [place] [address] Phone #: ext- [phone] 03/21/2021 14:52 Patient: [...] to back. Bowel incontinence 6 General Instructions [facility] Emergency Department [address] [place] [address] Phone #: ext- [phone] 03/21/2021 14:52 Patient: [...] for a long time. 7 General Instructions [facility] Emergency Department [address] [place] [address] Phone #: ext- [phone] 03/21/2021 14:52 Patient: [...] if the results will affect your treatment.Call [phone] if any of the following occur: Trouble [...] down Weakness or dizziness 8 General Instructions [facility] Emergency Department [address] [place] [address] Phone #: ext- [phone] 03/21/2021 14:52 Patient: BRITTNY EVERETT Sex: F : 1995 Age: 25y Vaginal discharge Pain, redness, or swelling in the outer vaginal area (labia) 7717-[address] [employer] [place] [address]. All rights reserved. This information is not intended as asubstitute for professional medical care. Always follow your healthcare professional's instructions. You have been given the following additional information: , New Dx Bladder Infection, Female (Adult)(Electronically signed by IGNACIA Saunders 03/21/2021 19:47) Name Value Range Interpretation Code Description Data Herminia rce(s) Supporting Document(s) ID Date Data Source [id number] 03/21/2021 02:53:00 PM EDT [facility] 1 Clinical Report - Nurses [facility] Emergency Department [address] [place] [address] Phone #: jmj- [phone] 03/21/2021 14:52 Patient: [id number] Sex: F : 1995 Age: 25yTRIAGEArrived by [...] yet, and her blood type is O+.).Treatment DEVELOPMENT EXECUTIVE:None.SEPSIS SCREEN: SIRS SCREEN NEGATIVE. SEPSIS SCREEN NEGATIVE. [...] Valencia R.N. 2 Clinical Report - Nurses [facility] Emergency Department [address] [place] [address] Phone #: ext- [phone] 03/21/2021 14:52 Patient: BRITTNY EVERETT [facility]#: [id number] Sex: F : 1995 Age: 25y ADDITIONAL [...] Resendiz R.N. 3 Clinical Report - Nurses [facility] Emergency Department [address] [place] [address] Phone #: ext- [phone] 03/21/2021 14:52 Patient: BRITTNY EVERETT Sex: F [...] Verbalizes understanding. --15:26 03/21/21 Yola Resendiz R.N. Patient ID band checked for patient name and birthdate: patient confirmed. Instructions provided to collect clean catch urine and patient verbalized understanding. Clean catch urine collected; sample sent to lab for urinalysis. Specimen labeled in the presence of the patient. --15:27 03/21/21 Yola Resendiz R.N. [facility]. --15:03/21/21 Yola Resendiz R.N. [facility] with auto body technician. --16:00 03/21/21 Yola Resendiz R.N. 16:03/21/21. BP: 105/70. HR: 72. RR: 16. O2 saturation: 100%. --16:03/21/21 [facility] [place] Tech, Mirta, ER Tech1.DISPOSITION / DISCHARGE 17:03/21/21. BP: 112/69. HR: 73. RR: 16. O2 saturation: 99%. Temp: 98.3 F. Pain level now 0/10. --17:03/21/21 [facility] [place] Tech, Mirta, ER Tech1 Condition at departure: unchanged. No learning barriers present. Discharge instructions provided and reviewed with the patient. Reviewed medication(s) side effects, precautions, dosing and course informa tion. Prescription(s) given to the patient and sent electronically to pharmacy. Patient verbalized understanding. Written instructions provided in Ukrainian. The patient was discharged home and unaccompanied at time of discharge. She left ambulatory and via private vehicle. Patient driving. --17:12 03/21/21 Yola Resendiz R.N. Departure time: 17:12 03/21/2021. --17:12 03/21/21 Yola Resendiz R.N.Locked/Released at 03/21/2021 17:12 by Yola Resendiz R.N. 4 Clinical Report - Nurses [facility] Emergency Department [address] [place] [address] Phone #: ext- [phone] 03/21/2021 14:52 Patient: BRITTNY EVERETT Sex: F : 1995 Age: 25y Name Value Range Interpretation Code Description Data Herminia rce(s) Supporting Document(s) ID Date Data Source [id number] 03/21/2021 02:53:00 PM EDT [facility] 1 Clinical Report - Physicians/[facility] Levels [facility] Emergency Department [address] [place] [address] Phone #: ext- [phone] 03/21/2021 14:52 Patient: [...] Allergies: 2 Clinical Report - Physicians/Mid Levels [facility] Emergency Department [address] [place] [address] Phone #: ext- [phone] 03/21/2021 14:52 Patient: [...] OB TRANSVAGINAL SIERRA: (MILEY: 03/21/2021 15:34) ( MsgRcvd 03/21/2021 16:12) In Progress US OB TRANSVAGINAL SIERRA Reason for Exam: abd pain and vaginal bleeding TRANSPORTATION: AMB IV? N O2? N STATUS: ISOLATION N CBC w Diff: (MILEY: 03/21/2021 16:00) ( MsgRcvd 03/21/2021 16:15) Final results Test Result Flag [...] 0.0) 3 Clinical Report - Physicians/Mid Levels [facility] Emergency Department [address] [place] [address] Phone #: ext- [phone] 03/21/2021 14:52 Patient: [id number] Sex: F : 1995 Age: 25y %NRBC [...] Male GFR Interprentation 20-49 yrs >60 mL/min Dieqgt43-62 yrs >56 mL/min Normal 60-69 yrs >49 mL/min Normal 70-79yrs>42 mL/min Normal 80 and above >35 mL/min Normal Female GFRInterpretation 20-39 yrs >60 mL/min Normal 40-49 yrs >58 mL/minNormal 50-59 yrs >51 mL/min Normal 60-69 yrs >45 mL/min Xkskus11-63 yrs >39 mL/min Normal 80 and above >32 mL/min NormalType Rh: (MILEY: 03/21/2021 16:00) ( MsgRcvd 03/21/2021 16:39) Final results Test Result Flag Units (Reference) ABO GROUP O RH TYPE POSITIVE { ABO/RH REENTER O POSITIVEUrinalysis: (MILEY: 03/21/2021 15:30) ( [facility] 03/21/2021 15:53) Final results Test Result Flag Units (Reference) URINALYSIS URINALYSIS SOURCE R COLOR yellow (NORMAL: Yello 4 Clinical Report - Physicians/Mid Levels [facility] Emergency Department [address] [place] [address] Phone #: ext- [phone] 03/21/2021 14:52 Patient: BRITTNY EVERETT Sex: F [...] Beta-HCG, Quant Serum: (MILEY: 03/21/2021 16:00) ( [facility] 03/21/2021 16:48) Final results Test Result Flag Units (Reference) HCG QUANT 117.5 mIU/mL Interpretation: Less than 5 mU/mL: Negative 6-10 mU/mL: Borderline (suggest repeat in 48 hours) >10: Positive Approx HCG range (mU/mL) Weeks post LMP 5.4-708 mU/mL 3-4 Weeks 217-55370 mU/mL 5-6 Weeks 4059-303152 mU/mL 7-8 Weeks 39039-230837 mU/mL 9-10 Weeks 59905-36097 mU/mL 12-14 Weeks 38110-64285 mU/mL 15-16 Weeks 8240-24444 mU/mL 17-18 Weeks US OB 1ST TRI [...] . 5 Clinical Report - Physicians/Mid Levels [facility] Emergency Department [address] [place] [address] Phone #: ext- [phone] 03/21/2021 14:52 Patient: [...] Dispense 21 capsule. Refills: 0. Substitution permitted. [id number] [phone] FaxNumber: [phone]. ondansetron 8 mg disintegrating tablet Take 1 tablet three times a day for 10 days -- Dispense 30 tablet. Refills: 0. Substitution permitted. [id number] [address] [place], [place] [phone]. . Follow-up: Follow up with your doctor ALLIANCE DIRECTOR in three days. Reason for referral: evaluation, treatment and repeat Beta Hcg and serial US. Summary of care provided to patient. Understanding of the discharge instructions verbalized by patient.(Electronically signed by IGNACIA Saunders 03/21/2021 19:47) Name Value Range Interpretation Code Description [facility] Supporting Document(s) ID Date Data Source [id number] 03/21/2021 02:53:00 PM EDT [facility] for BRITTNY EVERETT VisitID: [id number] Date: 13:39Pt urine growing E. COli [id number], d/c on cephalexin 500mg PO TIDx7 days which is sensitive, shownto Eladia BETH at 1338, no further treatment required.(Electronically signed by Chandrika Real R.N. - 03/26/2021 13:39) Name Value Range Interpretation Code Description Data Herminia rce(s) Supporting Document(s) ID Date Data Source [id number] 03/21/2021 08:37:00 PM EDT [facility] [address] [place] [address] PHONE: [phone] FAX: [phone] Name .................. : MARGUERITE Domingo Acct Number.................. : [id number] ROOM. ................. : [facility] MR Number ................... : [id number] Stay type ............. : E/R Discharge Date......... ... : 03/21/21 Admit Date ......... : 03/21/21 Admit Phys .................... : COONEYNORM Date of ....... : 1995 Family Phys ................... : UNKNOWN CO Phone .................. : [phone] Age ................................ : 25 Film# .................. .:[id number] Sex ................................. : F Unsigned transcriptions are preliminary reports and do not represent a medical or legal document [place] [id number] COMPLETE:03/21/21 16:12 [facility] [id number] Reason for Exam: abd pain and vaginal bleeding ULTRASOUND PELVIS INDICATION: Abdominal pain and vaginal bleeding. COMPARISON: None Preliminary report for this exam was provided by aman . TECHNIQUE: Ultrasound of the pelvis is [...] ectopic. If not Page 1 of 2 [facility] [address] [place] [address] PHONE: [phone] FAX: [phone] Name .................. : MARGUERITE Domingo Acct Number.................. : [id number] ROOM. ................. : TR04 Number ................... : [id number] Stay type ............. : E/R Discharge Date......... ... : 03/21/21 Admit Date ......... : 03/21/21 Admit Phys .................... : COONEYNORM Date of ....... : 1995 Family Phys ................... : UNKNOWN CO Phone .................. : [phone] Age ................................ : 25 Film# .................. .:[id number] Sex ................................. : F Unsigned transcriptions are preliminary reports and do not represent a medical or legal [place] [id number] COMPLETE: 11/05 16:12 P [id number] Reason for Exam: abd pain and vaginal [...] rce(s) Supporting Document(s) ID Date Data Source [id number] 03/21/2021 04:48:00 PM EDT [facility] Name Value Range Interpretation Code Description Data Herminia rce(s) Supporting Document(s) Choriogonadotropin.intact [Units/volume] in Serum or Plasma 117.5 mIU /mL [facility] Interpr etation: Less than 5 mU/mL: Negative 6-10 mU/mL: Borderline (suggest repeat in 48 hours) >10: Positive Approx HCG range (mU/mL) Weeks post LMP 5.4-708 mU/mL 3-4 Weeks 217-68702 mU/mL 5-6 Weeks 4059-390984 mU/mL 7-8 Weeks 32032-235690 mU/mL 9-10 Weeks 27226-52064 mU/mL 12-14 Weeks 85571-70297 mU/mL 15-16 Weeks 8240- 74674 mU/mL 17-18 Weeks ID Date Data Source [id number] 03/21/2021 04:40:00 PM EDT [facility] Name Value Range Interpretation Code Description Data Herminia rce(s) Supporting Document(s) COMPREHENSIVE METABOLIC PANEL [facility] COMPREHENSIVE METABOLIC PANEL Sodium [Moles/volume] in Serum or Plasma 139 mEq/L 134 - 153 [facility] Potassium [Moles/volume] in Serum or Plasma 4.1 mEq/L 3.6 - 5.0 [facility] Chloride [Moles/volume] in Serum or Plasma 104 mEq/L 98 - 107 [facility] Carbon dioxide, total [Moles/volume] in Serum or Plasma 26 MEQ/L 22 - 30 [facility] Glucose [Mass/volume] in Serum or Plasma 88 MG/DL 70 - 99 [facility] BUN 11 MG/DL 7 - 21 [facility] al Creatinine [Mass/volume] in Serum or Plasma 0.6 MG/DL 0.7 - 1.5 L [facility] BUN/CREAT 18 8 - 27 [facility] Protein [Mass/volume] in Serum or Plasma 6.9 G/DL 6.3 - 8.2 [facility] Albumin [Mass/volume] in Serum or Plasma 4.4 G/DL 3.9 - 5.0 [facility] Globulin [Mass/volume] in Serum by calculation 2.5 GM/DL 2.4 - 3.2 [facility] A/G RATIO 1.8 0.8 - 2.0 [facility] Calcium [Mass/volume] in Serum or Plasma 9.1 MG/DL 8.4 - 10.2 [facility] Bilirubin.total [Mass/volume] in Serum or Plasma 0.8 MG/DL 0.2 - 1.3 [facility] Alkaline phosphatase [Enzymatic activity/volume] in Serum or Plasma 50 U/L 38 - 126 [facility] Aspartate aminotransferase [Enzymatic activity/volume] in Serum or Plasma 17 U/L 5 - 40 [facility] Alanine aminotransferase [Enzymatic activity/volume] in Seru m or Plasma 9 U/L 7 - 56 [facility] Anion gap 3 in Serum or Plasma 9.0 mmol/L 8.0 - 16.0 [facility] AGE 25 yrs [facility] al NON-AA GFR >60 mL/min [facility] ital AFR AMER GFR >60 mL/min [facility] Male GFR In terprentation [...] >32 mL/min Normal ID Date Data Source [id number] 03/21/2021 04:39:00 PM EDT [facility] Name Value Range Interpretation Code Description Data Herminia rce(s) Supporting Document(s) ABO group [Type] in Blood [facility] Rh [Type] in Blood POSITIVE [facility] { ABO/RH REENTER O POSITIVE ID Date Data Source [id number] 03/21/2021 04:15:00 PM EDT [facility] Name Value Range Interpretation Code Description Data Herminia rce(s) Supporting Document(s) CBC W/AUTOMATED DIFF [facility] COMPLETE BLOOD COUNT Leukocytes [#/volume] in Blood by Automated count 6.3 10^3/uL 4.2 - 1 1.0 [facility] Erythrocytes [#/volume] in Blood by Automated count 4.49 10^6/uL 4. 20 - 5.40 [facility] Hemoglobin [Mass/volume] in Blood 13.1 g/dL 12.0 - 16.0 [facility] Hematocrit [Volume Fraction] of Blood by Automated count 38.2 % 3 7.0 - 47.0 [facility] Erythrocyte mean corpuscular volume [Entitic volume] by Auto mated count 85.1 fL 81.0 - 101 [facility] Erythrocyte mean corpuscular hemoglobin [Entitic mass] by Automated count 29.2 pg 27.0 - 34.0 [facility] Erythrocyte mean corpuscular hemoglobin concentration [Mass/volume] by Automated count 34.3 g/dL 31.0 - 36.0 [facility] Erythrocyte distribution width [Ratio] by Automated count 12.7 % 11.5 - 14.5 [facility] Platelets [#/volume] in Blood by Automated count 250 10^3/uL 150 - 45 0 [facility] Platelet mean volume [Entitic volume] in Blood by Automated count 9.9 fL 7.4 - 10.4 [facility] Neutrophils/100 leukocytes in Blood by Automated count 56.5 % 37. 0 - 80.0 [facility] Lymphocytes/100 leukocytes in Blood by Manual count 34.1 % 25.0 - 40.0 [facility] Monocytes/100 leukocytes in Blood by Automated count 6.5 % 3.0 - 8.0 [facility] Eosinophils/100 leukocytes in Blood by Automated count 2.1 % 0.0 - 7.0 [facility] Basophils/100 leukocytes in Blood by Automated count 0.5 % 0.0 - 2.5 [facility] %IG 0.3 % 0.0 - 0.0 H [facility] al %NRBC 0.0 % 0.0 - 0.0 [facility] al Neutrophils [#/volume] in Blood by Automated count 3.58 10^3/uL 2.00 - 6.90 [facility] Lymphocytes [#/volume] in Blood by Automated count 2.16 10^3/uL 0.60 - 3.40 [facility] Monocytes [#/volume] in Blood by Automated count 0.41 10^3/uL 0.00 - 0.90 [facility] Eosinophils [#/volume] in Blood by Automated count 0.13 10^3/uL 0.00 - 0.70 [facility] Basophils [#/volume] in Blood by Automated count 0.03 10^3/uL 0.00 - 0.20 [facility] #IG 0.02 10^3/uL 0.00 - 0.10 [facility] #NRBC 0.00 10^3/uL 0.00 - 0.00 [facility] MANUAL DIFF NOT INDICATED [facility] RBC MORPH NOT INDICATED [facility] spital ID Date Data Source [id number] 03/26/2021 06:46:00 AM EDT [facility] Name Value Range Interpretation Code Description Data Herminia rce(s) Supporting Document(s) CULTURE URINE [facility] spital _CULTURE URINE_$$[id number]$$242446$$192517$$593814$$726375$$897198$$122496$$224974$$815816$$ 391211$$565543$$272770$$273249$$049453$$977692$$232729$$557954$$017071$$100948$$ 174464$$335180$$676124$$353443$$967716$$733944$$865839$$214289 -- Continued on next page --Patient: MARGUERITE Domingo Order: [id number] Page 2Culture: CULTURE URINE Status: Final ==== -- Continued on next page --Patient: MARGUERITE Domingo Order: [id number] Page 2Culture: CULTURE URINE Status: Prelim =====$$[id number]$$[id number] DATE/TIME: 03/26/2021 06:06Culture: CULTURE URINE Status: FinalIsolate 1 Escherichia coli Flag: A . . . . . . .1Multi-Drug Resistant Tlublusu82,000-100,000 colony forming units per mLCefazolin <=4 ug/mLCefazolin with an MARTIN <=16 predicts susceptibility to the oral agentscefaclor, cefdinir, cefpodoxime, cefprozil, cefuroxime, cephalexin,and loracarbef when used for therapy of uncomplicated urinary tractinfections due to E. coli, Klebsiella pneumoniae, and Proteusmirabilis. Previous result entered on 03/25/2021 06:07 ET Gram negative rods50,000-100,000 colony forming units per mLUrine Culture,Comprehensive: G8Nxwjviltgko coli Flag: APatient: MARGUERITE Domingo Order: [id number] Page 3Culture: CULTURE URINE Status: Final ====ISOLATE [...] S S . . . . . .70662-6Ugoboqejvv R R . . . . . .267-5Imipenem S S . . . . . .279-0Levofloxacin R R . . . . . .94739-1Lebjbszcr S S . . . . . .6652-2Nitrofurantoin S S . . . . . .363- 2Piperacillin/Tazobactam S S . . . . . .412-7Tetracycline R R . . . . . .496-0Tobramycin I I . . . . . .508-2Trimethoprim/Sulfa R R . . . . . .516-5P1 Test performed by: Manny SHAHID #: [id number] [address] [place] [address] [address] [id number] [facility] [id number] Director : Prince Logan MD NPI #:Winter Intern : 03/25/21.0731.XMT.SENT REF 03/26/21.0646.XMT.SENT REF ID Date Data Source [id number] 03/24/2021 06:21:00 AM EDT [facility] Name Value Range Interpretation Code Description Data Herminia rce(s) Supporting Document(s) Chlamydia trachomatis rRNA [Presence] in Unspecified specimen by Probe and target amplification method Negative Negative [facility] Neisseria gonorrhoeae rRNA [Presence] in Unspecified specimen by Probe and target amplification method Negative Negative [facility] ID Date Data Source [id number] 03/21/2021 03:45:00 PM EDT [facility] Name Value Range Interpretation Code Description Data Herminia rce(s) Supporting Document(s) URINALYSIS [facility] raegan UR[facility]YS[facility] COL[facility] yellow NORMAL: Yellow [facility] CLARITY clear NORMAL: Clear [facility] Specific gravity of Urine by Test strip 1.015 1.001 - 1.030 [facility] pH 7 5 - 9 [facility] al Glucose [Mass/volume] in Urine by Test strip NORM [facility]: [facility] Bilirubin.total [Presence] in Urine by Test strip NEG NORMAL: Negative [facility] Ketones [Presence] in Urine by Test strip NEG NORMAL: Negative [facility] Protein [Mass/volume] in Urine by Test strip NEG NORMAL: [facility] Nitrite [Presence] in Urine by Test strip NEG NORMAL: Negative [facility] BLOOD NEG NORMAL: Negative [facility] LEUK EST 100 NORMAL: Negative [facility] Urobilinogen [Mass/volume] in Urine by Test strip NOR less hugh n 1.0 mg/dL [facility] MICROSCOPIC See Below [facility] ital WBC None Seen NORMAL: NONE SEEN [facility] Erythrocytes [#/volume] in Urine by Test strip None Seen NORMAL: NON E SEEN [facility] Bacteria [Presence] in Urine sediment by Light microscopy 1+ SMALL NORMAL: NONE SEEN [facility] ID Date Data Source [id number] 09/18/2020 02:09:00 PM [facility] 1 OrderSheet [facility] Emergency Department [address] [place] [address] Phone #: ext- [phone] 09/18/2020 14:08 Patient: [...] rce(s) Supporting Document(s) ID Date Data Source [id number] 09/18/2020 02:09:00 PM [facility] 1 Medication Reconciliation Report [facility] Emergency Department [address] [place] [address] Phone #: ext- [phone] 09/18/2020 14:08 Patient: [...] Dispense 21 capsule.Refills: 0. Substitution permitted.Pharmacy - [facility] #[id number] - [address] [place], [place] [phone]. . -- Eber Robert P.A.-C Name Value Range Interpretation Code Description Data [facility](s) Supporting Document(s) ID Date Data Source [id number] 09/18/2020 02:09:00 PM [facility] 1 Medication Administration Record [facility] Emergency Department [address] [place] [address] Phone #: ext- [phone] 09/18/2020 14:08 Patient: BRITTNY EVERETT Sex: F : 1995 Age: 24yWeight: 82.5 kgHeight/Length: 73 inBMI: 24ALLERGIES: Latex, Bees, Iodinated Diagnostic Agents, Shellfish-derived ProductsDate/Time Medication Administered Medication Ordered Name Value Range Interpretation Code Description Data [facility] Document(s) ID Date Data Source [id number] 09/18/2020 02:09:00 PM EST [facility] 1 General Instructions [facility] Emergency Department [address] [place] [address] Phone #: ext- [phone] 09/18/2020 14:08 [id number] Sex: F : 1995 Age: 24y Single [...] capsule. Refills: 0. Substitution permitted. Pharmacy - [facility] #[id number] - [address] [place], [place] [phone]. . Follow-up: Return to the emergency department [...] closure or skin glue. 2 General Instructions [facility] Emergency Department [address] [place] [address] Phone #: ext- [phone] 09/18/2020 14:08 [facility]: [facility]ETT [id number] Sex: F : 1995 Age: 24yHome care [...] pain medicines were prescribed, you can use zxro-pkc-swdhgvi pain medicines. Follow instructions for taking any [...] while the glue is 3 General Instructions [facility] Emergency Department [address] [place] [address] Phone #: ext- [phone] 09/18/2020 14:08 Patient: BRITTNY EVERETT [id number] Sex: F : 1995 Age: 24y in [...] be painful when eating. You may use puqfgf-vgu-xhnzroo local numbing solution for pain relief. If [...] any of these occur: 4 General Instructions [facility] Emergency Department [address] [place] [address] Phone #: ext- [phone] 09/18/2020 14:08 Patient: [...] control the wound bleeding with direct pressure. [id number] [employer]. [address] [place] [address]. All rights reserved. This information is not intended as asubstitute for professional medical care. Always follow your healthcare professional's instructions.Extremity Laceration: Stitches, [place], or TapeA laceration is a cut through [...] with your healthcare provider 5 General Instructions [facility] Emergency Department [address] [place] [address] Phone #: ext- [phone] 09/18/2020 14:08 Patient: [...] wound Decreased movement around the injured area [employer]. [address] [place] [address]. All rights reserved. This information is not intended as asubstitute for professional medical care. Always follow your healthcare professional's instructions. 6 General Instructions [facility] Emergency Department [address] [place] [address] Phone #: ext- [phone] 09/18/2020 14:08 Patient: [...] controlled by direct pressure 7 General Instructions [facility] Emergency Department [address] [place] [address] Phone #: nsn- [phone] 09/18/2020 14:08 Patient: BRITTNY EVERETT Sex: F : 1995 Age: 24y Signs of infection, including increasing pain in the wound, increasing wound redness or swelling, or pus or bad odor coming from the wound Fever of 100.4F (38.C) or higher, or as directed by your healthcare provider Wound edges reopen Wound changes colors Numbness around the wound Decreased movement around the injured area 8030-8633 [employer]. [address] [place] [address]. All rights reserved. This information is not [...] have any left over. 8 General Instructions [facility] Emergency Department [address] [place] [address] Phone #: ext- [phone] 09/18/2020 14:08 Patient: BRITTNY EVERETT Sex: F : 1995 Age: 24y The healthcare provider may prescribe medicines for pain. If no pain medicines were prescribed, you can use iicy-snc-rrkhass pain medicines. Follow instructions for taking any [...] after each meal and 9 General Instructions [facility] Emergency Department [address] [place] [address] Phone #: ext- [phone] 09/18/2020 14:08 Patient: BRITTNY EVERETT [facility]#: [id number] Sex: F : 1995 Age: 24yat bedtime with a mixture of equal parts water and hydrogen peroxide (don't swallow!). Or you canuse a cotton swab to directly apply hydrogen peroxide onto the cut. You may also be prescribed achlorhexidine solution to rinse with. Mouth wounds can be painful when eating. You may use epfnvt-ajz-twfclmc local numbing solution for pain relief. If [...] directed by your healthcare provider Stitches or astish come apart or fall out or surgical tape falls off before 7 days and the wound appears to be reopening Wound edges reopen Wound changes colors Numbness around the wound after any numbing medicine should have worn off Decreased movement around the injured areaCall 911Call 911 if you can't control the wound bleeding with direct pressure. [id number] [employer]. [address] [place] [address], [place] [address]. All rights reserved. This information is not intended as asubstitute for professional medical care. Always follow your healthcare professional's instructions.Extremity Laceration: Stitches, [place], or Tape 10 General Instructions [facility] Emergency Department [address] [place] [address] Phone #: ext- [phone] 09/18/2020 14:08 Patient: [...] fallen off by then. 11 General Instructions [facility] Emergency Department [address] [place] [address] Phone #: ext- [phone] 09/18/2020 14:08 Patient: [...] wound Decreased movement around the injured area [employer]. [address] [place] [address]. All rights reserved. This information is not [...] rce(s) Supporting Document(s) ID Date Data Source [id number] 09/18/2020 02:09:00 PM EST [facility] 1 Clinical Report - Nurses [facility] Emergency Department [address] [place] [address] Phone #: ext- [phone] 09/18/2020 14:08 Patient: BRITTNY EVERETT Sex: F : 1995 Age: 24yTRIAGEArrived by private vehicle. Historian: patient. Unaccompanied.Triage time: late entry - 14:08 09/18/2020. Acuity: LEVEL 4.Chief Complaint: LACERATION.Alert. No acute distress.Location of injuries: tip of left index finger. Occurred at work. Occurred late entry - 14:00 09/18/2020. 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 SEPSIS SCREEN NEGATIVE. [...] Real R.N. 2 Clinical Report - Nurses [facility] Emergency Department [address] [place] [address] Phone #: ext- [phone] 09/18/2020 14:08 [facility]: [facility]ETT [id number] Sex: F : 1995 Age: 24y ADDITIONAL [...] 2. Bed 3 Clinical Report - Nurses [facility] Emergency Department [address] [place] [address] Phone #: ext- [phone] 09/18/2020 14:08 Patient: BRITTNY EVERETT [id number] Sex: F : 1995 Age: 24y placed [...] F. Pain level now: 09/24. --15:56 09/18/20 [facility] Tech, Cory, Tech1 Departure time: late entry [...] Patient verbalized understanding. Written instructions provided in Ukrainian. 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 She was discharged home and unaccompanied at time of discharge. She left ambulatory and via private vehicle. Patient driving. --16:17 09/18/20 Chandrika Real R.N.Locked/Released at 09/18/2020 16:18 by Chandrika Real R.N. 4 Clinical Report - Nurses [facility] Emergency Department [address] [place] [address] Phone #: [phone] odx- [phone] 09/18/2020 14:08 Patient: BRITTNY EVERETT Sex: F : 1995 Age: 24y Name Value Range Interpretation Code Description Data Herminia rce(s) Supporting Document(s) ID Date Data Source [id number] 09/18/2020 02:09:00 PM EST [facility] 1 Clinical Report - Physicians/Mid Levels [facility] Emergency Department [address] [place] [address] Phone #: ext- [phone] 09/18/2020 14:08 Patient: BRITTNY EVERETT Sex: F [...] injury. 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 3 Clinical Report - Physicians/Mid Levels [facility] Emergency Department [address] [place] [address] Phone #: ext- [phone] 09/18/2020 14:08 Patient: BRITTNY EVERETT Sex: F [...] or 4 Clinical Report - Physicians/Mid Levels [facility] Emergency Department [address] [place] [address] Phone #: ext- [phone] 09/18/2020 14:08 Patient: BRITT[facility] EVERETT [id number] Sex: F : 1995 Age: 24y increased [...] capsule. Refills: 0. Substitution permitted. Pharmacy - [facility][id number] - [address] [place], [place] [phone]. . Follow- up: Return to the emergency [...] Current Smoker completed Curre nt Smoker eCW1 ([facility]) Smoking 07/22/2020 12:00:00 AM EST Current Smoker completed Curre nt Smoker eCW1 ([facility]) Smoking 07/22/2020 12:00:00 AM EST Current Smoker completed Curre nt Smoker eCW1 ([facility]) Smoking 07/22/2020 12:00:00 AM EST Current Smoker completed Curre nt Smoker eCW1 ([facility]) Vital Signs ID Date Data Source UNK Name Value Range Interpretation Code Description Data Source(s) Respiratory rate 16 /min 16 /min MEDENT ( [facility]) Diastolic blood pressure 58 mm[Hg] 58 mm[Hg] [facility] ([facility]) Oxygen saturation in Arterial blood by Pulse oximetry 99 % 99 % [facility] ([facility]) Body weight 185.50 [lb_av] 185.50 [lb_av] MEDEN T ([facility]) Body weight 84.143 kg 84.143 kg [facility] ([facility]) Body height 73 [in_i] 73 [in_i] [facility] ([facility]) 6'1" Body mass index (BMI) [Ratio] 24.5 kg/m2 24.5 k g/m2 [facility] ([facility]) Body surface area Derived from formula 2.08 m2 2.08 m2 MED[facility] ([facility]) Systolic blood pressure 120 mm[Hg] 120 mm[Hg] M EDENT ([facility]) Heart rate 94 /min 94 /min MEDENT ([facility]) Body weight 174 [lb_av] 174 [lb_av] eCW1 ([facility]) Body height 73 [in_i] 73 [in_i] eCW1 ([facility]) Body mass index (BMI) [Ratio] 22.95 kg/m2 22.95 kg/m2 eCW1 ([facility]) Heart rate 81 /min 81 /min eCW1 ([facility]) Respiratory rate 17 /min 17 /min eCW1 ([facility] Body temperature 98.1 [degF] 98.1 [degF] eCW1 ( [facility]) Systolic blood pressure 120 mm[Hg] 120 mm[Hg] e CW1 ([facility]) Diastolic blood pressure 70 mm[Hg] 70 mm[Hg] eCW1 ([facility]) Patient Treatment Plan of Care Planned Activity Planned Date Details Description Data Source (s) Omeprazole 40 MG Delayed Release Oral Capsule 07/04/2020 12:00:00 A M EST eCW1 ([facility]) meloxicam 7.5 MG Oral Tablet 07/04/2020 12:00:00 AM EST eCW1 ([facility]) topiramate 50 MG Oral Tablet 07/04/2020 12:00:00 AM EST eCW1 ([facility]) Omeprazole 40 MG Delayed Release Oral Capsule 07/04/2020 12:00:00 A M EST eCW1 ([facility]) meloxicam 7.5 MG Oral Tablet 07/04/2020 12:00:00 AM EST eCW1 ([facility]) topiramate 50 MG Oral Tablet 07/04/2020 12:00:00 AM EST eCW1 ([facility]) Omeprazole 40 MG Delayed Release Oral Capsule 07/04/2020 12:00:00 A M EST eCW1 ([facility]) meloxicam 7.5 MG Oral Tablet 07/04/2020 12:00:00 AM EST eCW1 ([facility]) topiramate 50 MG Oral Tablet 07/04/2020 12:00:00 AM EST eCW1 ([facility])
--- NOTE | 2021-06-05 13:15 | CR.PDOC ---
General Date of Consultation: Jun 05, 2021 Consultation REASON FOR CONSULTATION/CHIEF COMPLAINT: Pelvic pain and leaking of fluid HISTORY OF PRESENT ILLNESS: PER ER STAFF Pt is a 25yo who is approximately 15wks . She presented to the hospital today with complaints of pelvic pain and leaking of fluid. Pt states that she was lifting something heavy at work when she felt a pop and a gush of fluid. Describes the fluid as green and mucousy. Denies vaginal bleeding. Describes the pain as diffuse pelvic pain, denies ctx. Pt gets routine ob care at [facility]. In ER pt had a US which shows single live IUP measuring 15w3d. +FM and FHT 152. Normal amniotic fluid level. Given normal US, premature rupture of membranes is unlikely. Recommend pelvic exam to assess for pooling of fluid and nitrazine to rule it out. At this gestational age, ferning would not be reliable marker of rupture. Encourage provider to run STI panel to assess for GCCT/trich given the green discharge and pelvic pain. If patient is ruptured, she will need to be evaluated and counseled about dilation and evacuation vs. induction of labor. If pt is intact, assess for STIs. Pt is ok to return to routine OB care. Vital Signs/I&O Vital Signs Date Time Temp Pulse Resp B/P (MAP) Pulse Ox O2 Delivery O2 Flow Rate FiO2 06/05/21 09:17 97.7 84 18 113/56 (75) 99 Room Air Laboratory Data Labs 24H Laboratory Tests 2 06/05/21 10:07: Immature Granulocyte % (Auto) 0.4, Neutrophils (%) (Auto) 60.3, Lymphocytes (%) (Auto) 33.9, Monocytes (%) (Auto) 4.5, Eosinophils (%) (Auto) 0.6, Basophils (%) (Auto) 0.3, Neutrophils # (Auto) 4.3, Lymphocytes # (Auto) 2.4, Monocytes # (Auto) 0.3, Eosinophils # (Auto) 0.0, Basophils # (Auto) 0.0, Nucleated Red Blood Cells % (auto) 0.0, Anion Gap 5L, Glomerular Filtration Rate > 60.0, Calcium Level 8.8, Total Bilirubin 0.7, Direct Bilirubin 0.2, Aspartate Amino Transf (AST/SGOT) 13, Alanine Aminotransferase (ALT/SGPT) 26, Alkaline Phosphatase 47, Total Protein 6.8, Albumin 3.4, Albumin/Globulin Ratio 1.0L, Lipase 108 06/05/21 11:31: Urine Color YELLOW, Urine Appearance CLOUDYH, Urine pH 7.0, Urine Specific [place] 1.017, Urine Protein NEGATIVE, Urine Glucose (UA) NEGATIVE, Urine Ketones TRACEH, Urine Blood NEGATIVE, Urine Nitrite POSITIVEH, Urine Bilirubin NEGATIVE, Urine Urobilinogen 0.2, Urine Leukocyte Esterase 2+H, Urine WBC (Auto) 4H, Urine RBC (Auto) 2, Urine Hyaline Casts (Auto) 0, Urine Bacteria (Auto) 1+H, Urine Squamous Epithelial Cells 5, Urine Mucus (Auto) SMALL, Urine Sperm (Auto) CBC/BMP Laboratory Tests 06/05/21 10:07 Microbiology Microbiology 06/05/21 Urine Culture, Received Pending Allergies Coded Allergies: Contrast Media (Verified Allergy, Severe, anaphylaxis, 10/09/19) bee venom protein (honey bee) (Verified Allergy, Severe, anaphlaxis, 10/09/19) iodine (Verified Allergy, Severe, anaphylaxis, 05/03/19) shellfish derived (Verified Allergy, Severe, RASH, ANAPHYLAXIS, 10/09/19) venom-wasp (Verified Allergy, Severe, anaphylaxis, 01/21/20) Cat Dander (Verified Allergy, Unknown, 06/05/21) bee pollen (Verified Allergy, Unknown, 06/18/19) Home Medications Scheduled No.137/Iron/Folic Acd ( Vitamin Tablet) 1 Each Tablet, 1 TAB PO DAILY for 30 Days, #30 (Reported) KULDIP KO MD Jun 05, 2021 13:15
[2021-06-05 16:17] LABS: GC DNA AMPLIFICATION NEGATIVE (NEGATIVE)
[2021-06-05 16:33] VITALS: BP 114/52
[2021-06-05] MEDS ORDERED: NITROFURANTOIN (MACROBID) 100 MG CAP PO ONE (16:40)
[2021-06-05] MEDS ORDERED: MACR100C43 PO (16:47)
== END 2021-06-05 17:33 | disposition home or self-care (01) ==
LOC: M ED 09:02
DX: O23.42 Unspecified infection of urinary tract in pregnancy, second trimester (principal); O34.82 Maternal care for other abnormalities of pelvic organs, second trimester; N83.202 Unspecified ovarian cyst, left side; N96 Recurrent pregnancy loss; Z3A.15 15 weeks gestation of pregnancy; Z80.41 Family history of malignant neoplasm of ovary; Z91.041 Radiographic dye allergy status; Z91.030 Bee allergy status; Z91.048 Other nonmedicinal substance allergy status; Z91.013 Allergy to seafood